=== PATIENT | male | born 2000 | race Caucasian/White ===

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

== ENCOUNTER 2019-06-02 08:40 | Inpatient (IN) | payer MEDICAID, OTHER ==
--- NOTE | 2019-06-02 09:34 | ED ---
General Adult HPI - General Chief complaint: Psychiatric Symptoms Stated complaint: Mental Health Time Seen by Provider: 06/02/19 08:41 Source: patient, police, RN notes reviewed Mode of arrival: ambulatory Limitations: no limitations - History of Present Illness Initial comments: This is a 18-year-old male who presents to the emergency department from prison. Patient has been in prison for about a week and according to staff is getting progressively more bizarre. Patient is not eating patient standing around naked. Patient also thinks that the "niggers" are trying to get after him in the prison and he is afraid that he'll be hurts. Patient also states he is afraid that people are putting stuff in his food he believes that is the staff that works there. Patient also has been standing on his been for 12 hour straight without getting off. Patient also has had outbursts of laughing hysterically won't stop. Patient also gets at times verbally abusive. - Related Data Home Medications Medication Instructions Recorded Confirmed No Known Home Medications 06/02/19 06/02/19 Allergies Allergy/AdvReac Type Severity Reaction Status Date / Time No Known Allergies Allergy Verified 06/02/19 09:16 Review of Systems ROS Statement: Those systems with pertinent positive or pertinent negative responses have been documented in the HPI. ROS Other: All systems not noted in ROS Statement are negative. Past Medical History Past Medical History: No Reported History History of Any Multi-Drug Resistant Organisms: None Reported Past Surgical History: No Surgical Hx Reported Additional Past Surgical History / Comment(s): dog bite Past Psychological History: ADD/ADHD, Anxiety, Depression Smoking Status: Current every day smoker Past Alcohol Use History: Occasional Past Drug Use History: Cocaine, Marijuana General Exam - General Exam Comments Initial Comments: GENERAL: Patient is well-developed and well-nourished. Patient is nontoxic and well- hydrated and is in no acute distress. ENT: Neck is soft and supple. No significant lymphadenopathy is noted. Oropharynx is clear. Moist mucous membranes. Neck has full range of motion without eliciting any pain. EYES: The sclera were anicteric and conjunctiva were pink and moist. Extraocular movements were intact and pupils were equal round and reactive to light. Eyelids were unremarkable. PULMONARY: Unlabored respirations. Good breath sounds bilaterally. No audible rales rhonchi or wheezing was noted. CARDIOVASCULAR: There is a regular rate and rhythm without any murmurs gallops or rubs. ABDOMEN: Soft and nontender with normal bowel sounds. SKIN: Skin is clear with no lesions or rashes and otherwise unremarkable. NEUROLOGIC: Patient is alert and oriented x3. Cranial nerves II through XII are grossly intact. Motor and sensory are also intact. Normal speech, volume and content. Symmetrical smile. MUSCULOSKELETAL: Normal extremities with adequate strength and full range of motion. LYMPHATICS: No significant lymphadenopathy is noted PSYCHIATRIC: Patient is cooperative patient does have some paranoid thoughts about people trying to hurt her more poisoning his food. Patient denies any suicidal homicidal ideations. Limitations: no limitations Course Vital Signs 06/02/19 08:41 Temperature 98.0 F Pulse Rate 80 Respiratory 18 Rate Blood Pressure 118/83 O2 Sat by Pulse 98 Oximetry Medical Decision Making - Lab Data Lab Results 06/02/19 Range/Units 09:43 Urine Opiates Screen Not Detected (NotDetected) Ur Oxycodone Screen Not Detected (NotDetected) Urine Methadone Screen Not Detected (NotDetected) Ur Propoxyphene Screen Not Detected (NotDetected) Ur Barbiturates Screen Not Detected (NotDetected) U Tricyclic Antidepress Not Detected (NotDetected) Ur Phencyclidine Scrn Not Detected (NotDetected) Ur Amphetamines Screen Not Detected (NotDetected) U Methamphetamines Scrn Not Detected (NotDetected) U Benzodiazepines Scrn Not Detected (NotDetected) Urine Cocaine Screen Not Detected (NotDetected) U Marijuana (THC) Screen Detected H (NotDetected) Disposition Clinical Impression: Acute psychosis Disposition: ADMITTED IP TO THIS HOSP Referrals: None,Stated [Primary Care Provider] - 1-2 days Time of Disposition: 11:21
--- NOTE | 2019-06-02 10:02 | CT ---
EXAMINATION TYPE: CT brain wo con DATE OF EXAM: 06/02/2019 COMPARISON: None INDICATION: altered mental status DLP: 1099.4 mGycm, Automated exposure control for dose reduction was used. CONTRAST: None CT of the brain is performed utilizing 3 mm thick sections through the posterior fossa and 3 mm thick sections through the remaining calvarium. Study is performed within 24 hours of arrival to the hosp [facility]. No abnormal hyperdensity is present to suggest an acute intracranial hemorrhage. No mass lesion is evident. No acute infarcts are evident. Ventricles and sulci are appropriate for the patient age. There may be a robert cisterna magna normal variant. Paranasal sinuses and mastoid air cells within the [id number] are clear. IMPRESSIONS: 1. No acute intracranial process.
[2019-06-02 10:09] LABS: Amphetamine Screen,Urine Not Detected (NotDetected); Barbiturate Screen,Urine Not Detected (NotDetected); Benzodiazepines Screen,Urine Not Detected (NotDetected); Cocaine Screen,Urine Not Detected (NotDetected); Methadone Screen, Urine Not Detected (NotDetected); Opiate Screen,Urine Not Detected (NotDetected); Oxycodone Screen, Urine Not Detected (NotDetected); Phencyclidine Screen,Urine Not Detected (NotDetected); Tricyclic Antidepressant,Urine Not Detected (NotDetected); Urn Cannabinoid Scrn Detected (NotDetected)
[2019-06-02] MEDS ORDERED: ACETAMINOPHEN TAB 500 MG TAB PO STA (11:39)
[2019-06-02] MEDS ORDERED: LORazepam 1 MG TAB PO STA (11:39)
[2019-06-02] MEDS ORDERED: ACETAMINOPHEN TAB 325 MG TAB PO PRN (12:09)
[2019-06-02] MEDS ORDERED: MAG HYDROX/AL HYDROX/SIMETH 30 ML CUP PO PRN (12:09)
[2019-06-02] MEDS ORDERED: MAGNESIUM HYDROXIDE 2,400 MG/10 ML CUP PO PRN (12:09)
[2019-06-02] MEDS ORDERED: ZIPRASIDONE 20 MG VIAL IM PRN (12:09)
--- NOTE | 2019-06-02 17:40 | P.MDCNMH ---
History of Present Illness H&P Date: 06/02/19 Chief Complaint: Right hand laceration while incarcerated. This 18-year-old male who was admitted to mental health unit because of his worsening psych condition and medicine was consulted for medical management. Patient stated he is doing fine but did complain of having stomach upset and requesting to see a nurse. Patient also stated that he got injured in his bilateral hands when he was restrained during incarceration. Nurses reported that patient has some laceration and they're applying bacitracin ointment on it. During the interview patient was looking outside the window in a suspicious way. Patient cannot remember why he was incarcerated and why he was sent to the mental health unit. In the emergency room patient has minimal evaluation done CT head was negative for acute bleed and urine to screen was positive for marijuana. When asked patient stated that he was given marijuana and he smoked while he was incarcerated just prior to coming to the hospital. Patient denies headache, dizziness, chest pain, palpitation, nausea, vomiting, diarrhea, fever, chills, cough, sputum production and denies rest of the review system. Review of Systems 12 point review of system was essentially negative except what is mentioned in HPI Past Medical History Past Medical History: No Reported History History of Any Multi-Drug Resistant Organisms: None Reported Past Surgical History: No Surgical Hx Reported Additional Past Surgical History / Comment(s): dog bite Past Psychological History: ADD/ADHD, Anxiety, Depression Smoking Status: Never smoker Past Alcohol Use History: Occasional Past Drug Use History: Cocaine, Marijuana Medications and Allergies Home Medications Medication Instructions Recorded Confirmed Type No Known Home Medications 06/02/19 06/02/19 History Allergies Allergy/AdvReac Type Severity Reaction Status Date / Time No Known Allergies Allergy Verified 06/02/19 09:16 Physical Exam Vitals: Vital Signs Temp Pulse Pulse Resp BP BP Pulse Ox 06/02/19 14:01 96.7 F L 105 H 18 121/78 06/02/19 12:00 97.6 F 90 12 140/80 99 06/02/19 08:41 98.0 F 80 18 118/83 98 Intake and Output 06/02/19 06/02/19 06/02/19 06:59 14:59 22:59 Other: Weight 65.771 kg - Constitutional General appearance: cooperative, no acute distress - EENT Eyes: EOMI, normal appearance ENT: hearing grossly normal, NA/AT - Neck Neck: no lymphadenopathy, normal ROM, no rigidity, no stridor, no thyromegaly - Respiratory Respiratory: bilateral: CTA, negative: rales, rhonchi, wheezing - Cardiovascular Rhythm: regular Heart sounds: normal: S1, S2 Abnormal Heart Sounds: no systolic murmur, no diastolic murmur, no S3 Gallop, no S4 Gallop - Gastrointestinal General gastrointestinal: no distended, normal bowel sounds, no rigid, soft, no tenderness - Integumentary Patient is to laceration one on the right dorsal hand towards the base of the first metacarpal bone and it is about 1.2 cm long linear laceration with subcutaneous fat exposed. There is surrounding area of induration and erythema with some serous fluid discharge. No significant tenderness detected. Patient also had a small superficial laceration on the left dorsal hand around this same area which is towards the base of the first metacarpal bone with surrounding minimum erythema and no induration. - Neurologic Neurologic: CNII-XII intact - Musculoskeletal Musculoskeletal: gait normal, no generalized weakness, strength equal bilaterally, no right sided weakness, no left sided weakness - Psychiatric Psychiatric: A&O x's 3 (Very suspicious and paranoid appearance.) Cranial Nerve Examination - Cranial Nerves Cranial Nerve I- Olfactory: Intact Cranial Nerve II- Optic: Intact Cranial Nerve III- Oculomotor: Intact Cranial Nerve IV- Trochlear: Intact Cranial Nerve V- Trigeminal: Intact Cranial Nerve - Abducens: Intact Cranial Nerve VII- Facial: Intact Cranial Nerve VIII- Auditory: Intact Cranial Nerve IX- Glossopharyngeal: Intact Cranial Nerve X- Vagus: Intact Cranial Nerve XI- Accessory: Intact Cranial Nerve XII- Hypoglossal: Intact Results Labs: Abnormal Lab Results - Last 24 Hours (Table) 06/02/19 Range/Units 09:43 U Marijuana (THC) Screen Detected H (NotDetected) Assessment and Plan (1) Laceration of right hand Current Visit: Yes Status: Acute Priority: Medium Code(s): S61.411A - LACERATION WITHOUT FOREIGN BODY OF RIGHT HAND, INIT ENCNTR SNOMED Code(s): 091241832 (2) Gastritis Current Visit: Yes Status: Acute Priority: Medium Code(s): K29.70 - GASTRITIS, UNSPECIFIED, WITHOUT BLEEDING SNOMED Code(s): 4009848 (3) Polysubstance abuse Current Visit: Yes Status: Acute Priority: Medium Code(s): F19.10 - OTHER PSYCHOACTIVE SUBSTANCE ABUSE, UNCOMPLICATED SNOMED Code(s): 715581301 (4) Acute psychosis Current Visit: Yes Status: Acute Priority: High Code(s): F23 - BRIEF PSYCHOTIC DISORDER SNOMED Code(s): 39060419 Plan: It was recommended to initiate Keflex 500 mg by mouth 3 times a day daily for total of 10 days and local care of the wound bacitracin ointment twice a day. Although the wound is little deep but no tendons exposed and it is small in size sutures are not indicated. Local care along with oral antibiotics will be sufficient. For the left hand small laceration local care with local antibiotics is recommended. Patient was counseled regarding quitting cocaine and marijuana abuse and it was not well taken by him. For psych issues your care. Thanks for the consult, please reconsult if any further medical needs arise while he is in the mental health unit. Time with Patient: Less than 30
[2019-06-02] MEDS: PANTOPRAZOLE 40 MG TABLET PO SCH (17:45)
[2019-06-02] MEDS: CEPHALEXIN 500 MG CAP PO SCH ×2 (17:45→20:25)
[2019-06-03] MEDS: PANTOPRAZOLE 40 MG TABLET PO SCH (08:16)
[2019-06-03] MEDS: CEPHALEXIN 500 MG CAP PO SCH ×3 (08:16→20:07)
--- NOTE | 2019-06-03 09:15 | P.HP ---
Psychiatric H&P - . H&P Date: 06/03/19 History & Physical: Allergies Allergy/AdvReac Type Severity Reaction Status Date / Time No Known Allergies Allergy Verified 06/02/19 09:16 Vital Signs Temp 96.7 F L 06/02/19 14:01 Pulse 105 H 06/02/19 14:01 Resp 18 06/02/19 14:01 BP 121/78 06/02/19 14:01 Pulse Ox 99 06/02/19 12:00 Intake & Output 06/02/19 06/03/19 06/03/19 18:59 06:59 18:59 Weight 65.771 kg Laboratory Last Values Urine Opiates Screen Not Detected (NotDetected) 06/02/19 09:43 Ur Oxycodone Screen Not Detected (NotDetected) 06/02/19 09:43 Urine Methadone Screen Not Detected (NotDetected) 06/02/19 09:43 Ur Propoxyphene Screen Not Detected (NotDetected) 06/02/19 09:43 Ur Barbiturates Screen Not Detected (NotDetected) 06/02/19 09:43 U Tricyclic Antidepress Not Detected (NotDetected) 06/02/19 09:43 Ur Phencyclidine Scrn Not Detected (NotDetected) 06/02/19 09:43 Ur Amphetamines Screen Not Detected (NotDetected) 06/02/19 09:43 U Methamphetamines Scrn Not Detected (NotDetected) 06/02/19 09:43 U Benzodiazepines Scrn Not Detected (NotDetected) 06/02/19 09:43 Urine Cocaine Screen Not Detected (NotDetected) 06/02/19 09:43 U Marijuana (THC) Screen Detected (NotDetected) H 06/02/19 09:43 06/03/19 09:04 IDENTIFYING DATA: Patient is a 18-year-old male who lives in [facility] here on alone in an apartment is single and presents from the nursing home for a psychiatric evaluation. HPI: Patient presented to the hospital from the nursing home on petition indicating the patient has been paranoid, delusional and acting bizarre. Patient was escorted onto the unit by police in [facility] and appeared to be responding to internal stimuli on admission. Patient was directable yet was suspicious of scenario writer and agreeable to speak to scenario writer in an open common area where patient states "so I can see everything ". Patient stared blankly and bizarrely at scenario writer at times during the interview and was frequently looking over his shoulder and appeared to be responding to internal stimuli actively. Patient states that she is in the psych unit because he is feeling "anxious" and that the police brought him here because the nursing home was "hectic". Patient also states that "it's about to get hectic in this hospital". Patient was loud at times and irritable and states that his stomach is "twisted in a knot". Patient has poor judgment and poor insight. Patient admitted to not trusting other people in the unit along with staff however denies any auditory or visual hallucinations at this time. Patient admits to smoking marijuana "a lot" and states that he's been using concentrates however denies using any synthetics. Patient denies any other substance use including cocaine and heroin nicotine and alcohol. At this time patient denies any thoughts of suicidal or homicidal ideations intent or plan. Patient denies any thought insertion or thought broadcasting. Patient denies any depression and any flight of ideas racing thoughts and increased in goal directed behavior. PAST PSYCHIATRIC HISTORY: Admits to being admitted to [facility] however does not give details or date. Patient claims that he's been on antidepressants in the past however does not know their name. Patient denies seeing a psychiatrist in the past. Patient denies any previous history of suicidal attempts. PMH: Denies ALLERGIES: NKDA CHEMICAL DEPENDENCY HISTORY: Cannabis and cannabis concentrates, unknown quantity. Patient denies any other recreational drug use including alcohol and cigarettes. FAMILY PSYCHIATRIC/SUBSTANCE USE HISTORY: Denies SOCIAL HISTORY: Patient admits to being raised in [place] and currently lives in [place] and alone in an apartment, single, no kids. Patient has been at the nursing home for several weeks now and has been charged for breaking a window at his father's house to get his belongings. MENTAL STATUS EXAM: General Appearance: Patient appears to be stated age, poor hygiene and poor grooming wearing hospital gown. Patient appears to be responding to internal stimuli and checking over his shoulder. Behavior: Patient appears anxious and checking over his shoulders. Speech: Patient's speech is fluent monotone Mood/Affect: Patient reports their mood is fine, affect is incongruent and shallow Suicidality/Homicidality: Patient denies having any suicidal or homicidal ideation intent or plan. Perceptions: Patient denies any auditory or visual hallucinations. Admits to paranoia Though content/process: Bizarre, illogical at times. Evidence of paranoia. Memory and concentration: AOX3, grossly intact for the purposes of this session. Can spell "WORLD" backwards Judgment and insight: Poor STRENGTHS/WEAKNESSES: Resilient, good support system INTELLECT: Below average IMPRESSIONS: Psychosis, unspecified. PLAN: -Patient is admitted under voluntary status to MHU for stabilization of psychiatric symptoms and safety. Patient signed adult voluntary form and was placed in patient's chart. -Will start patient on Risperdal 1 mg twice a day for psychosis. -Haldol and Ativan PRN for agitation/aggression -Patient was counselled on substance abuse and desired to cut back on use. At this time patient has poor insight and will need to be monitored and revisit at a later time. -Patient was informed of the risks, benefits and side effects of the medication and patient verbally consented to taking the medications. Patient signed med consent form and was placed in chart. -NRT was offered and patient declined as patient does not smoke. -SW on board for discharge planning. Patient will be discharged back to nursing home upon being psychiatrically stabilized.
[2019-06-03] MEDS: risperiDONE ODT 1 MG TAB PO SCH ×2 (09:20→20:07)
[2019-06-03] MEDS: LORazepam 1 MG TAB PO PRN (20:07)
[2019-06-04] MEDS: PANTOPRAZOLE 40 MG TABLET PO SCH (08:45)
[2019-06-04] MEDS: CEPHALEXIN 500 MG CAP PO SCH ×3 (08:45→23:57)
[2019-06-04] MEDS: risperiDONE ODT 1 MG TAB PO SCH ×2 (08:45→21:33)
--- NOTE | 2019-06-04 09:56 | P.PN ---
Progress Note - Text Progress Note Date: 06/04/19 Interval History: Patient was seen wandering the hallways this morning was agreeable to radio news writer in the room. Patient was more directable today and mildly less bizarre than yesterday. Patient did not appear to be responding to internal stimuli however did drift off from time to time during the interview. Patient claimed that she got kicked out of group yesterday for being defiant and spitting and I can. Discussed with patient the rules of the groups and the appropriateness of his behaviors, patient continues to have poor insight and judgment. Patient states that he is sleeping better approximately 6-8 hours last night. He states that he does not feel paranoid at this time and does not endorse any delusions. He states that the medications did help "my stomach" however continues to state that he does not need medications but is willing to keep on taking them. At this time patient denies any suicidal or homical ideations, intent or plan. Patient denies any auditory, visual hallucinations. Patient denies any side effects from the medications and has been compliant with meds. Mental Status Exam: General Appearance: [Patient appears to be stated age is alert, directable and somewhat cooperative. Patient was defiant at times however was less bizarre. Patient is improving mildly in terms of grooming and hygiene. Behavior: [Patient is calmly seated without any agitated behavior.] Speech: Patient's speech is fluent and nonpressured. Mood/Affect: Patient reports their mood is improving, affect is congruent and constricted. Suicidality/Homicidality: Patient denies having any suicidal or homicidal ideation intent or plan. Perceptions: Patient denies any auditory or visual hallucinations. Though content/process: [There is no evidence of any delusional thought content, patient is still illogical and bizarre at times. Memory and concentration: AOX3, grossly intact for the purposes of this session Judgment and insight: Poor Assessment Psychosis, unspecified Cannabis use disorder Plan: -Patient continues to meet criteria for inpatient psychiatric admission for symptom stabilization and safety. Patient signed for medications and for voluntary admission, signed and placed in chart. -Medications: We'll continue Risperdal 1 mg twice a day for psychosis. May need an increase in 1-2 days. -Lesion noticed tachycardia, likely reactive from commencement of antipsychotics. Other vital signs stable and will continue to monitor. -When necessary Haldol and Ativan for agitation/aggression. -SW on board for discharge planning. Patient was a transfer from retirement and will need to be transferred back when discharged and psychiatrically stable.
[2019-06-04] MEDS: HALOPERIDOL LACTATE 5 MG/ML 1 ML VIAL IM PRN (18:54)
[2019-06-05] MEDS: PANTOPRAZOLE 40 MG TABLET PO SCH (07:43)
[2019-06-05] MEDS: risperiDONE ODT 1 MG TAB PO SCH ×2 (08:56→21:33)
[2019-06-05] MEDS: CEPHALEXIN 500 MG CAP PO SCH ×3 (08:56→21:33)
--- NOTE | 2019-06-05 09:25 | P.PN ---
Progress Note - Text Progress Note Date: 06/05/19 Interval History: Patient was seen this morning in the office. Patient was directable and agree able to speak with her at her. Patient appears to be slightly more appropriate this morning. Patient is not actively responding to internal stimuli however patient continues to give very bizarre looks to ad writer. Patient cleansed out the window several times and did not know or give a reason why. Patient states that he is getting along better with other people. He states that his impulse control is improving. Patient was preoccupied with discharge. He states that he is taking his medications and denies any side effects. Patient states that the dose right now is working for him and his anxiety. He states that his mood is okay. At this time patient denies any suicidal or homical ideations, intent or plan. Patient denies any auditory, visual hallucinations and denies any paranoia or delusions. Mental Status Exam: General Appearance: [Patient appears to be stated age is alert, directable and somewhat cooperative. Patient was defiant at times however was less bizarre. Patient is improving mildly in terms of grooming and hygiene. Behavior: [Patient is calmly seated without any agitated behavior.] Speech: Patient's speech is fluent and nonpressured. Mood/Affect: Patient reports their mood is improving, affect is congruent and constricted. Suicidality/Homicidality: Patient denies having any suicidal or homicidal ideation intent or plan. Perceptions: Patient denies any auditory or visual hallucinations. Though content/process: [There is no evidence of any delusional thought content, patient is still illogical and bizarre at times. Memory and concentration: AOX3, grossly intact for the purposes of this session Judgment and insight: Poor, improving Assessment Psychosis, unspecified Cannabis use disorder Plan: -Patient continues to meet criteria for inpatient psychiatric admission for symptom stabilization and safety. Patient signed for medications and for voluntary admission, signed and placed in chart. -Medications: We'll continue Risperdal 1 mg twice a day for psychosis. May need an increase depending on how things go over the weekend. -Tachycardia, likely reactive from commencement of antipsychotics. Other vital signs stable and will continue to monitor. -When necessary Haldol and Ativan for agitation/aggression. -SW on board for discharge planning. [facility] and will need to be transferred back when discharged and psychiatrically stable.
[2019-06-05] MEDS: LORazepam 1 MG TAB PO PRN (21:46)
[2019-06-06] MEDS: HALOPERIDOL LACTATE 5 MG/ML 1 ML VIAL IM PRN (07:20)
[2019-06-06] MEDS: LORazepam 1 MG TAB PO PRN (07:21)
[2019-06-06] MEDS: PANTOPRAZOLE 40 MG TABLET PO SCH (11:16)
[2019-06-06] MEDS: risperiDONE ODT 1 MG TAB PO SCH ×2 (11:16→22:15)
[2019-06-06] MEDS: CEPHALEXIN 500 MG CAP PO SCH ×3 (11:17→22:16)
--- NOTE | 2019-06-06 14:24 | P.PN ---
Progress Note - Text Progress Note Date: 06/06/19 Interval history: Patient is seen in cross coverage today. He does not voice any adverse psychotropic medication side effects. He says his sleep and appetite are stable. He does state that he is feeling better compared to admission. He says he was bothered by an incident earlier on the unit involving some peers but is dealing with it okay. Mental status exam: He is alert and cooperative with the interview. His speech is fluent, not rapid or pressured. His thought processes are organized. He does not verbalize any hallucinations or delusional thoughts. He has not verbalize any thoughts of harm to self or others. He does not show any agitation. Plan: Patient be maintained on current psychotropic medication regimen. Continue to monitor for any medication side effects and monitor his ongoing response to treatment.
[2019-06-07] MEDS: risperiDONE ODT 1 MG TAB PO SCH ×2 (08:20→21:26)
[2019-06-07] MEDS: PANTOPRAZOLE 40 MG TABLET PO SCH (08:21)
[2019-06-07] MEDS: CEPHALEXIN 500 MG CAP PO SCH ×3 (08:21→21:27)
--- NOTE | 2019-06-07 10:33 | P.PN ---
Progress Note - Text Progress Note Date: 06/07/19 Interval history: Patient is [place] in [facility] [place]. He reports he slept at least 7 hours last night. Says he is eating well. He does not verbalize any adverse psychotropic medication side effects. He is attending some groups. Mental status exam: He is alert and cooperative with the interview he has a tissue and one of his nostrils. He describes his mood is doing pretty good. He denies any hallucinations and denies any thoughts of harm to self or others. He does not verbalize any delusional thoughts. He does not show any agitation. Plan: Patient will be maintained on current psychotropic medication regimen. We'll continue to monitor for any medication side effects and monitor his ongoing response to treatment.
[2019-06-08 06:18] VITALS: RESP 18
[2019-06-08] MEDS: PANTOPRAZOLE 40 MG TABLET PO SCH (09:20)
[2019-06-08] MEDS: risperiDONE ODT 1 MG TAB PO SCH ×2 (09:20→21:48)
[2019-06-08] MEDS: CEPHALEXIN 500 MG CAP PO SCH ×3 (09:20→21:49)
--- NOTE | 2019-06-08 10:06 | P.PN ---
Progress Note - Text Progress Note Date: 06/08/19 Interval History: Patient was seen in the hallways and was somewhat directable agreeable to speak to commercial lines underwriter in the office. Patient appears to be somewhat as are and stares blankly at commercial lines underwriter at times. Patient was calm and alert during the interview and stated that his weekend was "all right". Patient denies any complaints except for "seeing some ghosts" in his room. Patient states that he feels worried about this and felt anxious over the weekend. Patient claims that he is trying to go to more groups and participate. He claims that the medication is helping him think clearer. At this time he admits to some anxiety however denies any depression. He states that he is sleeping throughout the night. At this time patient denies any suicidal or homical ideations, intent or plan. Patient denies any auditory, visual hallucinations. Patient denies any side effects from the medications and has been compliant with meds. Mental Status Exam: General Appearance: Patient appears to be stated age is alert, directable and somewhat cooperative. Patient was bizarre at times however was less bizarre. Patient is improving mildly in terms of grooming and hygiene. Behavior: Patient is calmly seated without any agitated behavior. Speech: Patient's speech is fluent and nonpressured. Mood/Affect: Patient reports their mood is improving, affect is congruent and constricted. Suicidality/Homicidality: Patient denies having any suicidal or homicidal ideation intent or plan. Perceptions: Patient denies any auditory or visual hallucinations. Though content/process: There is no evidence of any delusional thought content, patient is still bizarre at times. Memory and concentration: AOX3, grossly intact for the purposes of this session Judgment and insight: Poor, improving Assessment Psychosis, unspecified Cannabis use disorder Plan: -Patient continues to meet criteria for inpatient psychiatric admission for symptom stabilization and safety. Patient signed for medications and for voluntary admission, signed and placed in chart. -Medications: We'll increase Risperdal to 1 mg in the morning +1.5 mg at night for psychosis. -Tachycardia, likely reactive from commencement of antipsychotics. Other vital signs stable and will continue to monitor. -When necessary Haldol and Ativan for agitation/aggression. -SW on board for discharge planning. [facility] and will need to be transferred back when discharged and psychiatrically stable. Likely discharge early this week.
[2019-06-08] MEDS: HALOPERIDOL LACTATE 5 MG/ML 1 ML VIAL IM PRN (19:55)
[2019-06-09 06:41] VITALS: TEMP 97.8
[2019-06-09] MEDS: PANTOPRAZOLE 40 MG TABLET PO SCH (09:15)
[2019-06-09] MEDS: CEPHALEXIN 500 MG CAP PO SCH ×2 (09:15→16:07)
[2019-06-09] MEDS: risperiDONE ODT 1 MG TAB PO SCH ×2 (09:15→21:13)
--- NOTE | 2019-06-09 11:47 | P.PN ---
Progress Note - Text Progress Note Date: 06/09/19 Interval History: Patient was seen today in the hallways and was more directable today and agree able to seek to specifications writer. Patient states that he is trying to go to more groups and participate. He states that he has not been kicked out of groups for a while now. Patient claims that he is taking his medications every day and denies any side effects. Patient is less bizarre today, less staring inappropriately. Patient is not actively responding to internal stimuli. Patient claims he is getting adjusted to the increase in the medication however feels that it is slowly helping his process. Patient claims he slept to the night claims that the paranoia has been improving mildly. He is eating okay and has fair energy. At this time patient denies any suicidal or homical ideations, intent or plan. Patient denies any auditory, visual hallucinations and denies any paranoia or delusions. Mental Status Exam: General Appearance: Patient appears to be stated age is alert, directable and somewhat cooperative. Patient was less bizarre today and Patient is improving mildly in terms of grooming and hygiene. Behavior: Patient is calmly seated without any agitated behavior. Speech: Patient's speech is fluent and nonpressured. Mood/Affect: Patient reports their mood is improving, affect is congruent and constricted. Suicidality/Homicidality: Patient denies having any suicidal or homicidal ideation intent or plan. Perceptions: Patient denies any auditory or visual hallucinations. Though content/process: There is no evidence of any delusional thought content, patient is still bizarre at times. Memory and concentration: AOX3, grossly intact for the purposes of this session Judgment and insight: Poor, improving Assessment Psychosis, unspecified Cannabis use disorder Plan: -Patient continues to meet criteria for inpatient psychiatric admission for symptom stabilization and safety. Patient signed for medications and for voluntary admission, signed and placed in chart. -Medications: Continue with Risperdal to 1 mg in the morning +1.5 mg at night for psychosis. -Tachycardia, likely reactive from commencement of antipsychotics. Other vital signs stable and will continue to monitor. -When necessary Haldol for agitation/aggression. Discontinued Ativan as patient was cheeking this. -SW on board for discharge planning. Patient was a transfer from skilled nursing and will need to be transferred back when discharged and psychiatrically stable. Likely discharge tomorrow back to skilled nursing, social service agency director to arrange for pickup tomorrow.
[2019-06-10 06:45] VITALS: BP 139/75; PULSE 101
[2019-06-10] MEDS: PANTOPRAZOLE 40 MG TABLET PO SCH (08:58)
[2019-06-10] MEDS: risperiDONE ODT 1 MG TAB PO SCH (08:58)
--- NOTE | 2019-06-10 09:45 | P.DS ---
Providers Date of admission: 06/02/19 11:48 Expected date of discharge: 06/10/19 Attending physician: Lloyd Rosario MD Consults: 06/02/19 12:09 Consult Physician Routine Consulting Provider: Awilda Nowak Consult Reason/Comments: history and physical Do you want consulting provider notified?: Yes Primary care physician: Stated None - Discharge Diagnosis(es) (1) Psychosis Current Visit: Yes Status: Acute Priority: High (2) Cannabis abuse Current Visit: Yes Status: Acute Priority: High Hospital Course: Summary of admission note: Patient is a 18-year-old male [facility] [place] [facility] [place] apartment is single and [facility]. [facility] on petition indicating the p atient has been paranoid, delusional and acting bizarre. Patient was escorted onto the unit by police in [facility] and appeared to be responding to internal stimuli on admission. Patient was directable yet was suspicious of teletypewriter installer and agreeable to speak to teletypewriter installer in an open common area where patient states "so I can see everything ". Patient stared blankly and bizarrely at teletypewriter installer at times during the interview and was frequently looking over his shoulder and appeared to be responding to internal stimuli actively. Patient states that she is in the psych unit because he is feeling "anxious" and that the police brought him here because the [facility] was "hectic". Patient also states that "it's about to get hectic in this hospital". Patient was loud at times and irritable and states that his stomach is "twisted in a knot". Patient has poor judgment and poor insight. Patient admitted to not trusting other people in the unit along with staff however denies any auditory or visual hallucinations at this time. Patient admits to smoking marijuana "a lot" and states that he's been using concentrates however denies using any synthetics. Patient denies any other substance use including cocaine and heroin nicotine and alcohol. At this time patient denies any thoughts of suicidal or homicidal ideations intent or plan. Patient denies any thought insertion or thought broadcasting. Patient denies any depression and any flight of ideas racing thoughts and increased in goal directed behavior. Hospital course: Upon admission to the unit patient was initially actively responding to internal stimuli, appeared to be paranoid and bizarre. Patient was initially hesitant to engage with treatment protocol and milieu however patient did sign voluntary and consented to medications and treatment. Patient followed unit protocol however did require when necessary for agitation and disruptive behavior on the unit and often times was antagonizing to other patients and staff which did not appear to be related to his underlying psychosis. Patient was compliant with his medications and denied any side effects throughout his hospital course. Patient was started on Risperdal which was increased to 1 mg in the morning +1.5 mg at night for psychosis however patient claims that the 1.5 mg at night was causing him to have nightmares and wanted to return back to 1 mg twice a day. Patient spoke of his stressors and engaged in therapy both group and individual. At times patient was disruptive in group and was asked to leave however did apologize for his behavior. Patient's UDS was positive for THC on admission. Patient was also seen by medical team for history and physical exam. Throughout the course of the hospitalization patient gradually improved with regards to mood, sleep, psychotic symptoms and became future oriented and improved judgment and insight. On the day of discharge patient denied any suicidal or homicidal ideations intent or plan denied any auditory or visual hallucinations. Patient denied any paranoia and did not endorse any delusions. Patient does have a significant history of substance abuse and was counseled on abstaining from all substances including alcohol and marijuana. Patient was also counseled on the medications and need for regular compliance and was encouraged to follow-up with their outpatient appointment for mental health and also for primary care. Mental status exam: General Appearance: Patient appears to be stated age is alert, directable and cooperative. Patient is in no acute distress and has fair hygiene and grooming Behavior: Patient is calmly seated without any agitated behavior. Speech: Patient's speech is fluent and nonpressured. Mood/Affect: Patient reports their mood is "good", affect is congruent and euthymic. Suicidality/Homicidality: Patient denies having any suicidal or homicidal ideation intent or plan. Perceptions: Patient denies any auditory or visual hallucinations. Though content/process: There is no evidence of any delusional thought content and thought process is linear and goal-directed. Memory and concentration: AOX3, grossly intact for the purposes of this session. Can spell "WORLD" backwards correctly. Judgment and insight: fair, improving Impression: Acute psychosis Cannabis use disorder Plan: -Continue with discharge today as patient has improved and stabilized psychiatrically and no longer remains an imminent threat to himself and/or others. -Continue medications: Risperidone 1 mg twice a day for psychosis. Patient was informed of the risks, benefits and side effects of this medication and verbally understood and agreed. -Patient was counseled on the need for medication compliance and appropriate follow-up at mental health and also primary care for medical issues. Patient verbalized understanding and agreed. -Social work to give patient resources for substance abuse treatment. Patient counseled on abstaining from recreational drugs and marijuana and alcohol and it s effects on his physical and mental health. -Patient was instructed to return to the hospital or seek immediate medical care if their psychiatric or medical systems do worsen or reoccur. Allergies Allergy/AdvReac Type Severity Reaction Status Date / Time No Known Allergies Allergy Verified 06/02/19 09:16 Laboratory Results Urine Opiates Screen Not Detected (NotDetected) 06/02/19 09:43 Ur Oxycodone Screen Not Detected (NotDetected) 06/02/19 09:43 Urine Methadone Screen Not Detected (NotDetected) 06/02/19 09:43 Ur Propoxyphene Screen Not Detected (NotDetected) 06/02/19 09:43 Ur Barbiturates Screen Not Detected (NotDetected) 06/02/19 09:43 U Tricyclic Antidepress Not Detected (NotDetected) 06/02/19 09:43 Ur Phencyclidine Scrn Not Detected (NotDetected) 06/02/19 09:43 Ur Amphetamines Screen Not Detected (NotDetected) 06/02/19 09:43 U Methamphetamines Scrn Not Detected (NotDetected) 06/02/19 09:43 U Benzodiazepines Scrn Not Detected (NotDetected) 06/02/19 09:43 Urine Cocaine Screen Not Detected (NotDetected) 06/02/19 09:43 U Marijuana (THC) Screen Detected (NotDetected) H 06/02/19 09:43 Vital Signs Temp 97.8 F 06/10/19 06:12 Pulse 101 H 06/10/19 06:12 Resp 18 06/10/19 06:12 BP 139/75 06/10/19 06:12 Pulse Ox 99 06/02/19 12:00 Patient Condition at Discharge: Stable Plan - Discharge Summary New Discharge Prescriptions: Asad Pantoprazole [Protonix] 40 mg PO AC-BRKFST #14 tablet. risperiDONE 1 mg PO BID #28 tablet Discharge Medication List Pantoprazole [Protonix] 40 mg PO AC-BRKFST #14 tablet. 06/10/19 [Rx] risperiDONE 1 mg PO BID #28 tablet 06/10/19 [Rx] Follow up Appointment(s)/Referral(s): None,Stated [Primary Care Provider] - 1-2 days
== END 2019-06-10 13:10 | DRG 885 ==
LOC: EC 08:40 → 3MHU 11:48
PROVIDERS: ADMIT Psychiatry & Neurology Psychiatry; ATTEND Psychiatry & Neurology Psychiatry
DX: F23 Brief psychotic disorder (principal); F17.200 Nicotine dependence, unspecified, uncomplicated; F12.10 Cannabis abuse, uncomplicated; K29.70 Gastritis, unspecified, without bleeding; S61.411A Laceration without foreign body of right hand, initial encounter; F41.9 Anxiety disorder, unspecified; R00.0 Tachycardia, unspecified; F90.9 Attention-deficit hyperactivity disorder, unspecified type; T43.505A Adverse effect of unspecified antipsychotics and neuroleptics, initial encounter; Z79.899 Other long term (current) drug therapy
CPT/HCPCS: 70450; 80306; 82075; 99285

== ENCOUNTER 2019-11-27 09:11 | Inpatient (IN) | payer MEDICAID, OTHER ==
--- NOTE | 2019-11-27 09:43 | ED ---
General Adult HPI - General Chief complaint: Psychiatric Symptoms Stated complaint: psych eval Time Seen by Provider: 11/27/19 09:25 Source: patient, family, RN notes reviewed Mode of arrival: ambulatory Limitations: no limitations - History of Present Illness Initial comments: Patient is a pleasant 19-year-old male presenting to the emergency department with concerns for paranoia. Patient was admitted several months ago however his medications were not continued. Mother is concerned that patient has been paranoid and worried that people are poisoning him for watching him. Patient has not ate or slept in the past several days. Patient denies feeling paranoid however admits to not eating well recently. Patient denies hallucinations. No alcohol or street drugs however patient states he did smoke some marijuana around New Year's. No new physical complaints. Patient denies suicidal and homicidal thoughts. - Related Data Previous Rx's Medication Instructions Recorded Pantoprazole [Protonix] 40 mg PO AC-BRKFST #14 tablet. 06/10/19 risperiDONE 1 mg PO BID #28 tablet 06/10/19 Allergies Allergy/AdvReac Type Severity Reaction Status Date / Time No Known Allergies Allergy Verified 06/02/19 09:16 Review of Systems ROS Statement: Those systems with pertinent positive or pertinent negative responses have been documented in the HPI. ROS Other: All systems not noted in ROS Statement are negative. Constitutional: Denies: fever Eyes: Denies: eye pain ENT: Denies: ear pain Respiratory: Denies: cough, dyspnea Cardiovascular: Denies: chest pain Endocrine: Denies: fatigue Gastrointestinal: Denies: abdominal pain Genitourinary: Denies: dysuria Musculoskeletal: Denies: back pain Skin: Denies: rash Neurological: Denies: weakness Psychiatric: Reports: as per HPI Past Medical History Past Medical History: No Reported History History of Any Multi-Drug Resistant Organisms: None Reported Past Surgical History: No Surgical Hx Reported Additional Past Surgical History / Comment(s): dog bite Past Psychological History: ADD/ADHD, Anxiety, Bipolar, Depression, Schizophrenia Smoking Status: Never smoker Past Alcohol Use History: Occasional Past Drug Use History: Cocaine, Marijuana General Exam Limitations: no limitations General appearance: alert, in no apparent distress Head exam: Present: normocephalic Eye exam: Present: normal appearance Neck exam: Present: normal inspection Respiratory exam: Present: normal lung sounds bilaterally Cardiovascular Exam: Present: regular rate, normal rhythm GI/Abdominal exam: Present: soft. Absent: tenderness Extremities exam: Present: other (Subacute healing peraza bilateral dorsal hand) Neurological exam: Present: alert Psychiatric exam: Present: flat affect Skin exam: Present: normal color Course Vital Signs 11/27/19 09:16 Temperature 98.0 F Pulse Rate 113 H Respiratory 17 Rate Blood Pressure 150/87 O2 Sat by Pulse 98 Oximetry Medical Decision Making - Medical Decision Making Patient seen by mental health services with plans for admission. Positive clinical certificate completed. Disposition Clinical Impression: Acute psychosis Disposition: TRANSFER TO PSYCH HOSP/UNIT Is patient prescribed a controlled substance at d/c from ED?: No Referrals: None,Stated [Primary Care Provider] - 1-2 days Decision Time: 13:13
[2019-11-27] MEDS ORDERED: ACETAMINOPHEN TAB 325 MG TAB PO PRN (13:51)
[2019-11-27] MEDS ORDERED: MAG HYDROX/AL HYDROX/SIMETH 30 ML CUP PO PRN (13:51)
[2019-11-27] MEDS ORDERED: MAGNESIUM HYDROXIDE 2,400 MG/10 ML CUP PO PRN (13:51)
[2019-11-27] MEDS ORDERED: ZIPRASIDONE 20 MG VIAL IM PRN (13:51)
[2019-11-27] MEDS ORDERED: LORazepam 1 MG TAB PO PRN (13:51)
[2019-11-27] MEDS ORDERED: traZODone HCL 50 MG TAB PO PRN (13:58)
--- NOTE | 2019-11-27 18:11 | P.MDCNMH ---
History of Present Illness H&P Date: 11/27/19 Chief Complaint: Medical management 19-year-old male with PMH of ADHD, anxiety, bipolar depression presents the ED for paranoia. He has been admitted to mental health unit. [facility] physicians has been consulted for medical management of this patient. Patient was seen and examined. Patient has no complaints. He denies any headache, lower extremity edema, nausea or vomiting, fever or chills, cough, chest pain, shortness of breath, palpitations, changes in urination or bowel habits. No changes in appetite or weight. Patient denies any dizziness, numbness/weakness/tingling of extremities. Review of Systems Pertinent positives and negatives as discussed in HPI, a complete review of systems was performed and all other systems are negative. Past Medical History Past Medical History: No Reported History History of Any Multi-Drug Resistant Organisms: None Reported Past Surgical History: No Surgical Hx Reported Additional Past Surgical History / Comment(s): dog bite, plastic surgery to nose Past Anesthesia/Blood Transfusion Reactions: No Reported Reaction Past Psychological History: ADD/ADHD, Anxiety, Bipolar, Depression, Schizophrenia Smoking Status: Current some day smoker Past Alcohol Use History: Abuse, Occasional Additional Past Alcohol Use History / Comment(s): Pt. states when he drinks it's usually a 12 pk of beer occasionally. Past Drug Use History: Cocaine, Marijuana - Past Family History Mother Family Medical History: No Reported History Father Family Medical History: No Reported History Medications and Allergies Home Medications Medication Instructions Recorded Confirmed Type No Known Home Medications 11/27/19 11/27/19 History Allergies Allergy/AdvReac Type Severity Reaction Status Date / Time No Known Allergies Allergy Verified 11/27/19 15:43 Physical Exam Vitals: Vital Signs Temp Pulse Pulse Resp BP Pulse Ox 11/27/19 15:08 98.1 F 105 H 20 98 11/27/19 09:16 98.0 F 113 H 17 150/87 98 Intake and Output 11/27/19 11/27/19 11/27/19 06:59 14:59 22:59 Other: Weight 68.583 kg 65.771 kg General: [non toxic], [no distress], [appears at stated age] Derm: [warm], [dry], [acne] Head: [atraumatic], [normocephalic], [symmetric] Eyes: [EOMI], [no lid lag], [anicteric sclera] Mouth: [no lip lesion], [mucus membranes moist] Cardiovascular: [S1S2 reg], [tachycardia], [positive DP pulse bilateral], Lungs: [CTA bilateral], [no rhonchi, no rales] , [no accessory muscle use] Abdominal: [soft], [ nontender to palpation], [no guarding], [no appreciable organomegaly] Ext: [no gross muscle atrophy], [no edema], [no contractures] Neuro: [no focal neuro deficits] Psych: [Alert], [oriented], [appropriate affect] Cranial Nerve Examination - Cranial Nerves Cranial Nerve II- Optic: Intact Cranial Nerve III- Oculomotor: Intact Cranial Nerve IV- Trochlear: Intact Cranial Nerve V- Trigeminal: Intact Cranial Nerve - Abducens: Intact Cranial Nerve VII- Facial: Intact Cranial Nerve VIII- Auditory: Intact Cranial Nerve IX- Glossopharyngeal: Intact Cranial Nerve X- Vagus: Intact Cranial Nerve XI- Accessory: Intact Cranial Nerve XII- Hypoglossal: Intact Assessment and Plan Assessment: Tachycardia Cigarette smoker Marijuana use Paranoia Heart rate in the low 100s. Likely related to anxiety. Plans: Follow EKG. Plans: Offer nicotine patch. Plans: Advised to quit. Plans: Management as per psychiatry.
[2019-11-27] MEDS ORDERED: risperiDONE 1 MG TAB PO SCH (21:00)
[2019-11-28 07:24] LABS: Basophils % (A) 1 %; Eosinophils % (A) 1 %; HCT 49.7 % (39.0-53.0); HGB 16.8 gm/dL (13.0-17.5); Lymphocytes # (A) 1.8 k/uL (1.0-4.8); Lymphocytes % (A) 27 %; MCH 29.8 pg (25.0-35.0); MCHC 33.8 g/dL (31.0-37.0); MCV 88.2 fL (80.0-100.0); Mean Platelet Volume 7.3; Monocytes # (A) 0.5 k/uL (0-1.0); Monocytes % (A) 7 %; Neutrophils # (A) 3.9 k/uL (1.3-7.7); Neutrophils % (A) 61 %; Platelet Count 247 k/uL (150-450); RBC 5.64 m/uL (4.30-5.90); RDW 12.7 % (11.5-15.5); WBC 6.5 k/uL (4.0-11.0)
[2019-11-28 07:40] LABS: ALT 18 U/L (4-49); AST 31 U/L (17-59); African American GFR (CKD) >90 (>60 ml/min/1.73 sqM); Albumin 5.1 g/dL (3.5-5.0); Alkaline Phosphatase 63 U/L (38-126); Anion Gap 13 mmol/L; Blood Urea Nitrogen 14 mg/dL (9-20); Carbon Dioxide 23 mmol/L (22-30); Chloride 104 mmol/L (98-107); Cholesterol 250 mg/dL (<200); Glucose 80 mg/dL (74-99); HDL Cholesterol 39 mg/dL (40-60); LDL Cholesterol,Calculated 196 mg/dL (0-99); Non-African American GFR(CKD) >90 (>60 ml/min/1.73 sqM); Potassium 4.3 mmol/L (3.5-5.1); Sodium 140 mmol/L (137-145); Total Bilirubin 3.4 mg/dL (0.2-1.3); Total Protein 8.3 g/dL (6.3-8.2); Triglycerides 76 mg/dL (<150)
[2019-11-28] MEDS: hydrOXYzine PAMOATE 25 MG CAP PO PRN (13:47)
--- NOTE | 2019-11-28 13:54 | P.HP ---
Psychiatric H&P - . H&P Date: 11/28/19 History & Physical: IDENTIFYING Data: Colt Montes is a 19-year-old single male who currently lives with his stepfather, unemployed, has psychiatric history of psychotic disorder, and medical history of GERD. The patient has been admitted to our inpatient psychiatric services after been transferred from [facility] ED. Patient was initially brought in to ED accompanied by his mother who petitioned him because of bizarre and paranoid behavior. The patient has been admitted initially involuntarily but he requested to sign voluntary papers during psychiatric evaluation. CHIEF COMPLAINT: "I need script for my medications and I am feeling paranoid and fearful." HISTORY OF PRESENT ILLNESS: According to ED note: " the patient presented to ED with concern of paranoia. Patient was prescribed psychiatric medications during previous hospitalization but his medications was not continued. As per mother's petition the patient was paranoid, fearful, not eating and reports being poisoned. Patient had previous psychiatric hospitalization at the same unit May of last year and he was discharged on Risperidal 1 mg BID with discharge diagnosis Psychotic disorder and cannabis use disorder. Patient was very superficial, guarded and not good historian. He reports didn't take his psychiatric medications for more than 2 weeks before coming to the the hospital. He admitted for feeling paranoid, and sometimes feels been watched. He denies feeling other people want to poison him but again he was very superficial and guarded. He reports noticed changes in his sleep and appetite that he was sleeping and eating less than usual for last 2 weeks. He denies any hallucinations or other delusions but he is probably internally preoccupied. Denies feeling persistently depressed, and reports no symptoms of hopeless, or suicidal. He denies any severe mood symptoms, outburst of anger or severe agitation, and denies any homicidal ideation. He reports previous episodes of severe depression that he reports previous times with severe depressed mood, lack of motivation, feeling hopeless and had suicidal ideation. He reports sometimes feeling anxious but denies feeling always anxious, or having racing thoughts. He denies recent panic attacks, and denies nightmares, flashbacks, intrusive thoughts or other symptoms of PTSD. Patient denies any previous or current manic symptoms including elated, euphoric or irritable mood, feeling grandiose with inflated self-esteem, with impulsive uninhibited behavior, flight of ideas, absence need to sleep, pressured speech, not feeling tired, and unusual level of energy and activities including increased goal directed activities. He denies any history of self-injurious behavior but admitted for history of previous suicidal attempt. PAST PSYCHIATRIC HISTORY: Previous diagnoses: "anxious" Previous psychiatric hospitalizations: Reports "few" previous psychiatric hospitalization, first time was in [address] [facility] for depression and suicidal ideation, and last time was at this unit in May 2019 for psychotic symptoms. . Previous suicide attempts: Admitted for one previous suicidal attempt "few years ago" by "tried to shot myself". Previous outpatient psychiatric treatment: Patient couldn't remember when was last time was seen by outpatient psychiatrist. Current psychiatric medications: Denies any current outpatient psychiatric service. Previous medication trials: Patient couldn't recall any previous psychiatric medications trials besides ADHD medications "Ritalin, Adderall" when he was 7 year-old. SUBSTANCE ABUSE HISTORY: Nicotine: "sometimes, occasionally", less than a pack every week. Alcohol: "sometimes" "once or twice every other week", but he reports history of heavy alcohol drinking. Denies any previous DUI, PI, previous alcohol intoxication or treatment. He reports history of heavy use of marijuana but he cut down after he got on probation. He denies use of any other street drugs and denies any history of IV drug use. Social History: Patient was born in [facility] and raised up by his mother and stepfather. Housing: Currently lives with his mother and stepfather. The patient is never and currently unemployed. Education: Patient reports attaining an educational level of 10th grade. Children: Patient reports having no children. Legal history: Currently on probation, reports has charges that "broke to my fat her's house" History of psychological trauma: Denies FAMILY HISTORY: Psychiatric Illness: Denies . Substance abuse: Both parents suffers from "addiction problems to cigarette and alcohol". Completed Suicides: Denies. Medical History: GERD MENTAL STATUS EVALUATION: Appearance: Appears stated age, not-well groomed, average body built, and no specific features. Gait/ posture: Steady gait, normal arm swinging, no abnormal movements, with relaxed posture. Attitude and Behavior: not engaged, not fully cooperative, poor eye contact during course of interview. Motor Activity: decreased psychomotor activity. Speech: spontaneous, slow rate, rhythm, and articulation. low volume. not pressured. Language: Articulating, naming objects and repeat phrases. Mood: "anxious" Affect: Restricted to flat. Thought process: slow rate. . Association: intact, not circumstantial or tangential. Thought content: Paranoid delusions, Denies suicidal thoughts, Denies homicidal thoughts, Denies intentions, or plans. Perception: Denies hallucinations Alertness: No impairment. Concentration: Impaired Orientation: Oriented to time, place, person, and situation. Insight regarding psychiatric condition: fair Judgment regarding daily activities and social situation: fair Impulse control: fair Strengths: stable general medical condition family support Challenges: poor compliance with treatment marijuana use Allergies Allergy/AdvReac Type Severity Reaction Status Date / Time No Known Allergies Allergy Verified 11/27/19 15:43 Vital Signs Temp 98.4 F 11/28/19 06:58 Pulse 133 H 11/28/19 06:58 Resp 16 11/28/19 06:58 BP 120/77 11/28/19 06:58 Pulse Ox 98 11/27/19 15:08 Intake & Output 11/27/19 11/28/19 11/28/19 18:59 06:59 18:59 Weight 65.771 kg Review of Lab results: Laboratory Last Values WBC 6.5 k/uL (4.0-11.0) 11/28/19 07:00 RBC 5.64 m/uL (4.30-5.90) 11/28/19 07:00 Hgb 16.8 gm/dL (13.0-17.5) 11/28/19 07:00 Hct 49.7 % (39.0-53.0) 11/28/19 07:00 MCV 88.2 fL (80.0-100.0) 11/28/19 07:00 MCH 29.8 pg (25.0-35.0) 11/28/19 07:00 MCHC 33.8 g/dL (31.0-37.0) 11/28/19 07:00 RDW 12.7 % (11.5-15.5) 11/28/19 07:00 Plt Count 247 k/uL (150-450) 11/28/19 07:00 Neutrophils % 61 % 11/28/19 07:00 Lymphocytes % 27 % 11/28/19 07:00 Monocytes % 7 % 11/28/19 07:00 Eosinophils % 1 % 11/28/19 07:00 Basophils % 1 % 11/28/19 07:00 Neutrophils # 3.9 k/uL (1.3-7.7) 11/28/19 07:00 Lymphocytes # 1.8 k/uL (1.0-4.8) 11/28/19 07:00 Monocytes # 0.5 k/uL (0-1.0) 11/28/19 07:00 Eosinophils # 0.0 k/uL (0-0.7) 11/28/19 07:00 Basophils # 0.0 k/uL (0-0.2) 11/28/19 07:00 Sodium 140 mmol/L (137-145) 11/28/19 07:00 Potassium 4.3 mmol/L (3.5-5.1) 11/28/19 07:00 Chloride 104 mmol/L (98-107) 11/28/19 07:00 Carbon Dioxide 23 mmol/L (22-30) 11/28/19 07:00 Anion Gap 13 mmol/L 11/28/19 07:00 BUN 14 mg/dL (9-20) 11/28/19 07:00 Creatinine 0.75 mg/dL (0.66-1.25) 11/28/19 07:00 Est GFR (CKD-EPI)AfAm >90 (>60 ml/min/1.73 sqM) 11/28/19 07:00 Est GFR (CKD-EPI)NonAf >90 (>60 ml/min/1.73 sqM) 11/28/19 07:00 Glucose 80 mg/dL (74-99) 11/28/19 07:00 Calcium 10.0 mg/dL (8.4-10.2) 11/28/19 07:00 Total Bilirubin 3.4 mg/dL (0.2-1.3) H 11/28/19 07:00 AST 31 U/L (17-59) 11/28/19 07:00 ALT 18 U/L (4-49) 11/28/19 07:00 Alkaline Phosphatase 63 U/L (38-126) 11/28/19 07:00 Total Protein 8.3 g/dL (6.3-8.2) H 11/28/19 07:00 Albumin 5.1 g/dL (3.5-5.0) H 11/28/19 07:00 Triglycerides 76 mg/dL (<150) 11/28/19 07:00 Cholesterol 250 mg/dL (<200) H 11/28/19 07:00 LDL Cholesterol, Calc 196 mg/dL (0-99) H 11/28/19 07:00 HDL Cholesterol 39 mg/dL (40-60) L 11/28/19 07:00 TSH 1.290 mIU/L (0.465-4.680) 11/28/19 07:00 Assessment: Psychotic disorder, unspecified. Rule out Schizo-affective disorder, depressive type Rule out Cannabis use disorder GERD TREATMENT PLAN/RECOMMENDATIONS: Medical Decision making: The patient presented with psychotic symptoms, severe paranoia that he was not able to take care of himself and he was not taking his psychiatric medications. The patient at high risk to hurt self and probably others if he is not in the inpatient setting. The patient's psychiatric symptoms are not stable and he needs further management of psychiatric medications and further planning for discharge. Therefore, inpatient level of care is needed. Continue the patient inpatient for safety. Continue the patient under 15 minutes safe check for safety. Psych education regarding his diagnoses, and treatment option. The patient will also be provided with individual therapy, group therapy, substance abuse counseling, gain insight, and coping skills. Consider medical consultation if any acute medical issue arise. Medications: Restart Risperidal 1 mg BID for psychotic symptoms and as a mood stabilizer Trazodone 50 mg HS PRN for insomnia Vistaril 25 mg TID PRN for anxiety The patient will be assessed on daily basis for his depression, suicidal ideation, and will be discharged back to his outpatient mental health provider upon stabilization. EXPECTED LENGTH OF STAY: 5-7 days.
[2019-11-28 18:37] LABS: Hemoglobin A1C 5.1 % (4.0-6.0)
[2019-11-28] MEDS: risperiDONE 1 MG TAB PO SCH (20:40)
[2019-11-29] MEDS: risperiDONE 1 MG TAB PO SCH ×2 (08:53→22:26)
--- NOTE | 2019-11-29 13:47 | P.PN ---
Progress Note - Text Progress Note Date: 11/29/19 Subjective: Patient was seen today as a cross coverage for . The patient was evaluated, chart reviewed, case discussed with the treatment team. Patient reported better sleep last night. Appetite was reported as " fine". Patient has not been going to groups and other unit activities. The patient is compliant with his medications and denies any adverse reactions. Patient presented guarded and superficial in his answers. He denies any hallucinations, but reports still having paranoid ideation. He reports depression is controlled and he denies feeling suicidal or homicidal. He denies any manic symptoms including a euphoric mood, lack need to sleep due to increased activities, or uninhibited behavior. Objective: Vitals has been reviewed. MENTAL STATUS EVALUATION: Appearance: Appears stated age, not-well groomed, average body built, and no specific features. Gait/ posture: Steady gait, normal arm swinging, no abnormal movements, with relaxed posture. Attitude and Behavior: not engaged, not fully cooperative, poor eye contact during course of interview. Motor Activity: decreased psychomotor activity. Speech: spontaneous, slow rate, rhythm, and articulation. low volume. not pressured. Language: Articulating, naming objects and repeat phrases. Mood: "anxious" Affect: Restricted to flat. Thought process: slow rate. . Association: intact, not circumstantial or tangential. Thought content: Paranoid ideation, Denies suicidal thoughts, Denies homicidal thoughts, Denies intentions, or plans. Perception: Denies hallucinations Alertness: No impairment. Concentration: Impaired Orientation: Oriented to time, place, person, and situation. Insight regarding psychiatric condition: fair Judgment regarding daily activities and social situation: fair Impulse control: fair Assessment: Assessment: Psychotic disorder, unspecified. Rule out Schizo-affective disorder, depressive type Rule out Cannabis use disorder GERD TREATMENT PLAN/RECOMMENDATIONS: Continue inpatient level of care for safety and further need of stabilization on medication. Continue the patient under 15 minutes safe check for safety. Psych education regarding his diagnoses, and treatment option. The patient will also be provided with individual therapy, group therapy, substance abuse counseling, gain insight, and coping skills. Consider medical consultation if any acute medical issue arise. Medications: Continue Risperidal 1 mg BID for psychotic symptoms and as a mood stabilizer Continue Trazodone 50 mg HS PRN for insomnia Continue Vistaril 25 mg TID PRN for anxiety Continue other when necessary medications The patient will be assessed on daily basis for his depression, suicidal ideation, and will be discharged back to his outpatient mental health provider upon stabilization.
[2019-11-30] MEDS: risperiDONE 1 MG TAB PO SCH ×2 (08:06→21:10)
--- NOTE | 2019-11-30 11:15 | P.PN ---
Progress Note - Text Interval history: The patient is found in the hallway he follows me to an interview room. Throughout the morning he was observed walking in the hallway rather than attending groups. Often he was looking down and appeared preoccupied. He was admitted over the weekend for presumed symptoms of psychosis. He psychiatric evaluation and subsequent progress note were reviewed. He has been restarted on Risperdal which has been prescribed to him in the past. He indicates that the Risperdal was helpful to him in the past while he was incarcerated. He has no questions or concerns regarding the medication. He indicates he had trouble sleeping last night staff recorded he slept 6 hours. Staff report that he has not eaten his last few meals. He denies having any thoughts of his food being tampered with her poisoned but this was reported upon presentation to the hospital. Mental status exam: The patient is a thin male appearing his stated age. He has his hair shave short. He is dressed in his own clothing he has a disheveled appearance. He remains calmly seated in the chair during the session. He often looks down at the floor. He initiates no spontaneous speech but we'll offer brief answers to questions. He is reporting no thoughts of harming himself or others he may be underreporting symptoms. He is nonspecific and vague but indicates he is still experiencing auditory hallucinations. He states in the recent past they have been commanding. He does not specify what they are saying today. He appears guarded suspicious and preoccupied but he denies having any paranoid thinking. Insight and judgment are impaired. He demonstrates no verbal or physical aggressiveness he demonstrates no involuntary repetitive movements. He demonstrates no tangential thinking loose associations or flight of ideas. Plan: The patient appears to be experiencing symptoms of psychosis. We will continue the Risperdal as written. We will consider titrating the dose further if needed. Vital signs reviewed. We will monitor him for safety. He is encouraged to attend groups. We will involve his family in treatment and discharge planning as he will allow.
[2019-12-01] MEDS: risperiDONE 1 MG TAB PO SCH ×2 (09:54→21:35)
--- NOTE | 2019-12-01 10:54 | P.PN ---
Progress Note - Text Interval history: The patient is found in the hallway follows me to an interview room. He indicates his mood is better. He states the hallucinations are gone. He reports no paranoid thinking. Staff report that he has been mildly more interactive. Eye contact is improved. He indicates he is eating meals. He reports he slept well last night staff reported he slept 5 hours. He is more focused on being discharged today. Mental status exam: The patient is alert he is a thin male appearing his stated age. He is dressed in a hospital gown over his clothing. Eye contact is improved from yesterday. He looks down often but does make a point to look up. He appears frustrated. He does continue to appear preoccupied at times but he denies having any hallucinations. It is possible he is underreporting hallucinations. He demonstrated no verbal or physical aggressiveness. He demonstrates no involuntary repetitive movements. Speech can be spontaneous there is odd delays in between statements at times it looks like he struggles with formulating his question at times. Again this may be due to preoccupation with internal stimuli. He is reporting no suicidal or homicidal ideation intent or plan. Plan: The patient will continue on his current psychotropic medication. We will consider titrating the Risperdal further if needed. Vital signs reviewed. He requires continued psychiatric hospitalization for his symptoms of psychosis. There is some subtle improvement that we are observing. We will continue to monitor for symptoms of psychosis and monitor his acute safety risk.
[2019-12-01] MEDS: hydrOXYzine PAMOATE 25 MG CAP PO PRN (22:32)
--- NOTE | 2019-12-02 09:05 | P.PN ---
Progress Note - Text Interval history: The patient is found in the [facility] he follows me to an interview room. He indicates his mood is okay. He states that he feels the Risperdal is causing auditory and visual hallucinations. He notes having some upset stomach. He previously took Protonix while on Risperdal and we discussed that that could be initiated. We reviewed that the medication does not cause hallucinations and perhaps the dose is not titrated sufficiently to treat his psychosis. He states that the hallucinations are telling him funny things such as "you are a bunny". He indicates he slept last night staff report he slept 5 hours he states he is eating. Social work notes reviewed an attempt was made to contact his mother. Mental status exam: The patient is a thin male appearing his stated age. He is dressed in hospital gowns. Hygiene grooming adequate. Eye contact continues to improve each day. Affect is overly bright and expansive today. He demonstrates exaggerated smiling and laughter at times. He is responding to auditory hallucinations. He indicates they are saying funny things during our interaction. He is reporting no suicidal or homicidal ideation intent or plan. He reports feeling safe in the hospital. Insight and judgment are limited. He demonstrates no verbal or physical aggressiveness he demonstrates no involuntary repetitive movements. Plan: The patient will continue on the Risperdal we will titrate the dose to 1 mg in the morning 2 mg at bedtime. He continues to experience acute symptoms of psychosis that are causing psychosocial dysfunction. Vital signs reviewed. He is encouraged to participate fully in the milieu. We will continue our efforts to have his mother come in for support meeting to evaluate his progress.
[2019-12-02] MEDS: PANTOPRAZOLE 40 MG TABLET PO SCH (10:11)
[2019-12-02] MEDS: risperiDONE 1 MG TAB PO SCH (10:11)
[2019-12-02] MEDS ORDERED: risperiDONE 2 MG TAB PO SCH (21:00)
--- NOTE | 2019-12-03 09:05 | P.PN ---
Progress Note - Text Interval history: The patient is found in the hallway he follows me to an interview room. He states that he is quite troubled this morning by auditory hallucinations. He is very reluctant to discuss what he is hearing. He does keep saying "I don't understand it". At first he seems distraught and frustrated. As the session progresses he then again begins demonstrating bizarre laughter and smiling. He then states "that was weird you almost is changed into something" he later stated that I appeared to change into something scary. Again he does not provide many specifics. He had no visitors last evening he states he spoke with his mother via phone this morning. We reviewed the psychotropic medication he feels the Risperdal has not provided much benefit at this point. He is a poor historian regarding psychiatric medications. Mental status exam: The patient is alert he is dressed in his own clothing and wearing a hospital gown. Hygiene grooming adequate. Eye contact is improved compared to admission. He describes his mood as being very frustrated. He is endorsing ongoing auditory hallucinations. At first he states they're noncommanding then later he spontaneously states that they have told him to kill himself. They appear to be derogatory but he refuses to specify what is being said. He appears to be experiencing some visual hallucinations as noted above. Although he reports no paranoid thinking he seems to feel unsafe. He demonstrates no verbal or physical aggressiveness. Thought process is not well organized at times. He has difficulty completing sentences. Insight and judgment are limited. He demonstrates no repetitive involuntary movements. Plan: The patient will continue on the Risperdal we will titrate to 2 mg twice daily. He requires continued psychiatric hospitalization. We will again try to reach out to his mother specifically to see if there has been any antipsychotic medication that has worked better for him. He is encouraged to participate in the milieu. Vital signs reviewed.
[2019-12-03] MEDS: risperiDONE 2 MG TAB PO SCH ×2 (10:04→21:27)
[2019-12-03] MEDS: PANTOPRAZOLE 40 MG TABLET PO SCH (10:04)
[2019-12-03] MEDS: risperiDONE 1 MG TAB PO SCH (10:17)
[2019-12-04] MEDS: PANTOPRAZOLE 40 MG TABLET PO SCH (09:09)
[2019-12-04] MEDS: risperiDONE 2 MG TAB PO SCH ×2 (09:09→20:59)
--- NOTE | 2019-12-04 09:30 | P.PN ---
Progress Note - Text Interval history: The patient's found in his room he follows me to an interview room. He states that his mood is better. He reports hearing no voices today. We discussed that it seems unusual that they've been fairly strong over the last 2 days and would be absent today. He also asked about being put on a non- stimulant for ADHD. We discussed that Strattera would be an option but that would be more appropriately started in the outpatient venue. He did sleep last night appetite is stable. Social work was able to speak with the patient's mother. It appears she has no collateral regarding successful trials with antipsychotic medication. The patient selectively attends groups. He states it is difficult talking to people. Again he is very ambiguous in his speech he provides partial answers unable to stop talking. Mental status exam: The patient is alert he is cooperative he has a constricted to blunted affect. He indicates he is hearing no voices but that does not seem likely. He does continue to appear to be distracted. He often looks down at the floor. As noted he will start answering questions and then stop he frequently states "I don't know". Thought process is not well organized but he does not appear hypomanic or manic. Insight and judgment limited. He demonstrates no verbal or physical aggressiveness he demonstrates no involuntary repetitive movements. Hygiene grooming fair. Plan: The patient will continue on the Risperdal as written. We will monitor for any continued evidence of psychosis specifically auditory hallucinations. We will defer initiation of Strattera to his outpatient clinic. He is encouraged to fully participate in the milieu we will monitor him for safety. Vital signs reviewed. We will await input from family after they visit this weekend.
[2019-12-05] MEDS: PANTOPRAZOLE 40 MG TABLET PO SCH (08:40)
[2019-12-05] MEDS: risperiDONE 2 MG TAB PO SCH ×2 (08:40→21:02)
[2019-12-05] MEDS ORDERED: MD COMMUNICATION TO PHARMACY 1 EACH MISC PO PRN ×2 (21:16→21:46)
[2019-12-05] MEDS: [UNRECOGNIZED DRUG - OTHER] TOPICAL PRN (22:03)
[2019-12-06] MEDS: PANTOPRAZOLE 40 MG TABLET PO SCH (09:01)
[2019-12-06] MEDS: risperiDONE 2 MG TAB PO SCH ×2 (09:01→21:41)
[2019-12-06 12:18] VITALS: BMI 21.7
--- NOTE | 2019-12-06 16:31 | P.PN ---
Progress Note - Text Progress Note Date: 12/05/19 Clinical Problems: Schizophrenia, acne Interim history: For the medical record and interviewed the patient. He was without complaint or concern. Later and they received a call from nursing staff requesting order to continue his home proactive in the treatment. Mental status exam: He presented as a tall thin male with moderate facial acne. He is pleasant on approach and appeared to attend to interview. He had a blunted facial expression. His speech was spontaneous with decreased rate, rhythm and volume. He denied suicidal homicidal ideation. He did not appear guarded or suspicious. He denied experiencing auditory hallucinations. Assessment: He appears moderately well and much improved from admission. Plan: Continue current plan including Risperdal 2 mg by mouth twice a day.
--- NOTE | 2019-12-06 16:33 | P.PN ---
Progress Note - Text Progress Note Date: 12/06/19 Clinical Problems: Schizophrenia, acne Interim history: I reviewed the medical record and interviewed the patient. I pushed him as he was laying in bed. He came to my office for the interview. He stated that he thinks he is doing much better. He is able to eat all conflict. He talked about a "voice" prior to admission telling him not to eat. The police is present but it's not as distressing and no longer control his behavior. Mental status exam: He was casually groomed and wearing hospital gown. He made eye contact and attended to the interview. He had a blunted facial expression. His speech was spontaneous with normal rate, rhythm and volume. He denied suicidal or homicidal ideation. His thinking was concrete but organized and goal directed. He described hallucinations but did not appear to be responding to internal stimuli. Assessment: He appears much improved from admission Plan: Continue current treatment plan. Continue Risperdal 2 mg by mouth twice a day.
[2019-12-06] MEDS: [UNRECOGNIZED DRUG - OTHER] TOPICAL PRN (18:25)
[2019-12-07] MEDS: [UNRECOGNIZED DRUG - OTHER] TOPICAL PRN (08:51)
[2019-12-07] MEDS: risperiDONE 2 MG TAB PO SCH (10:19)
[2019-12-07] MEDS: PANTOPRAZOLE 40 MG TABLET PO SCH (10:19)
--- NOTE | 2019-12-07 11:01 | P.PN ---
Progress Note - Text Interval history: The patient is found in the [facility] he follows me to an interview room. Social work notes were reviewed. The patient's family visited over the weekend and felt that the patient had made little progress. Progress notes are reviewed as well. The patient indicates that he feels of Risperdal has helped his anxiety and he feels it has reduced the voices somewhat. Today he indicates voices are telling him to hurt other people but he states he will not act on those hallucinations because "I know better". He indicates being able to hear others' thoughts at times and he is disturbed by those. He is reporting no side effects from the Risperdal. He has been attending groups. Staff recorded he slept 5 hours last evening. He has been going down to meals. He states his goal for today is "to be more positive". Mental status exam: The patient is a male appearing his stated age. He is alert he is dressed in hospital attire. Hygiene and grooming fair. Eye contact is good speech is fluent more spontaneous. Affect is mainly constricted with some brief smiling at times. He reports auditory hallucinations as noted he reports being able to hear others' thoughts. He is reporting no visual hallucinations he states "that stopped but it is not gone". He demonstrates no verbal or physical aggressiveness. Insight and judgment limited. He was more attentive to the interview today than prior visits. He is demonstrating no repetitive involuntary movements. Plan: The patient will continue on the Risperdal we will titrate to 2 mg the morning 3 mg at bedtime. Overall his affect is brighter he is more directable but he is continuing to report acute symptoms of psychosis. We will allow the Risperdal more time to demonstrate efficacy. We will monitor him for safety and encourage full participation in the milieu. We will continue to solicit input from his family after they visit.
[2019-12-07] MEDS: risperiDONE 1 MG TAB PO SCH (21:50)
[2019-12-08] MEDS: risperiDONE 2 MG TAB PO SCH (09:23)
[2019-12-08] MEDS: PANTOPRAZOLE 40 MG TABLET PO SCH (09:24)
--- NOTE | 2019-12-08 10:51 | P.PN ---
Progress Note - Text Interval history: The patient is found in his room he follows me to an interview room. He indicates that his mood is okay. He initially states that he is not experiencing any hallucinations then later admits that he is still experiencing some. He states today they are not directing any harm to others or self-harm. He does find them disturbing at times however. He indicates he slept last night appetite is stable. He did not go to groups this morning but plans to attend this afternoon. He has no questions or concerns regarding his psychotropic medication. Mental status exam: The patient is an alert male appearing his stated age. Hygiene grooming adequate. Speech is fluent and spontaneous nonpressured. He maintains a blunted affect. He reports ongoing auditory hallucinations that can be derogatory at times causing him some distress. He reports her noncommanding currently but they were yesterday. He is reporting no suicidal ideation on his own. He reports no thoughts of wanting to hurt others. He demonstrates no verbal or physical aggressiveness he is demonstrating no involuntary repetitive movements. Insight and judgment limited. Plan: The patient will be continued on the Risperdal as written. It appears there has been some mild clinical improvement so far. He has been more interactive affect has been brighter and he reports there has been some improvement in the psychosis. We will monitor him for safety and encourage full participation in the milieu. We expect that his family will visit tomorrow evening and they can provide further collateral information. Vital signs reviewed.
[2019-12-08] MEDS: risperiDONE 1 MG TAB PO SCH ×2 (21:17→21:19)
[2019-12-09] MEDS: PANTOPRAZOLE 40 MG TABLET PO SCH (08:56)
[2019-12-09] MEDS: risperiDONE 2 MG TAB PO SCH (08:56)
--- NOTE | 2019-12-09 09:43 | P.PN ---
Progress Note - Text Progress Note Date: 12/09/19 Interval History: Patient was seen today as he was attending group and was agreeable to speak to her in the office. Patient states that he is feeling mildly improved today with regard to his mood. He states that his I have any depression and is showing an improvement in his insight. He spoke about the events leading up to his hospitalization and how he stopped taking his medications in nursing home. Patient states that he has been going to groups and trying to participate as best as he can. He states that the medications are helping him sleep at night including that he slept around 7 hours last night. He states that he does have some mild auditory hallucinations however cannot elaborate on the content of them and states that they have improved. At this time patient denies any suicidal or homical ideations, intent or plan. Patient denies any visual hallucinations and denies any paranoia or delusions. Patient denies any side effects from the medications and has been compliant with meds. Mental Status Exam: General Appearance: Patient appears to be stated age is alert, directable at tempts to cooperate. Patient has facial acne and wearing a hospital gown. Behavior: Patient is calmly seated without any agitated behavior. Speech: Patient's speech is fluent and nonpressured. Mood/Affect: Mood is improving, affect is congruent and constricted. Suicidality/Homicidality: Patient denies having any suicidal or homicidal ideation intent or plan. Perceptions: Patient denies any visual hallucinations and admits to mild auditory hallucinations which have improved. Though content/process: There is no evidence of any delusional thought content and thought process is linear and goal-directed. Memory and concentration: AOX3, grossly intact for the purposes of this session Judgment and insight: Improving mildly Assessment Psychosis unspecified rule out substance-induced psychosis Plan: -Patient continues to meet criteria for inpatient psychiatric admission for symptom stabilization and safety. Patient has signed adult voluntary form and medication consent and was placed in patient's chart. -Medications: Continue with Risperdal 3 mg daily at bedtime +2 mg every morning for psychosis/mood stabilization as written by Dr. Craft. Vistaril when necessary for anxiety. Trazodone when necessary for sleep. -When necessary Geodon for agitation/aggression. -NRT -not need this patient does not smoke -SW on board for discharge planning. Patient has been mildly improving cli nically, will speak with social worker masters and team about contact with mother and discharge planning. Likely discharge in 1-2 days.
[2019-12-10] MEDS: PANTOPRAZOLE 40 MG TABLET PO SCH (08:46)
[2019-12-10] MEDS: hydrOXYzine PAMOATE 25 MG CAP PO PRN ×3 (08:46→22:00)
[2019-12-10] MEDS: risperiDONE 2 MG TAB PO SCH ×3 (08:46→22:00)
--- NOTE | 2019-12-10 09:31 | P.PN ---
Progress Note - Text Progress Note Date: 12/10/19 Interval History: Patient was seen today wondering always and was agreeable to speak to her in the office. Patient today appeared to be upset and more constricted in his affect. Patient also appeared to be more paranoid. He states that he doesn't trust most people on the unit and as per nursing staff patient did not sleep last night and was more intrusive. Patient continues to have superficial insight and judgment and patient states that he is taking his meds however patient was offered to take the long-acting injection to ensure compliance however patient adamantly declined and got defensive towards hand sign writer. Patient states that he has been going to groups and trying to participate as best as he can. He states that the medications are helping him. He states that he does have some mild auditory hallucinations however cannot elaborate on the content of them. At this time patient denies any suicidal or homical ideations, intent or plan. Patient denies any visual hallucinations and denies any delusions. Patient denies any side effects from the medications and has been compliant with meds. Mental Status Exam: General Appearance: Patient appears to be stated age is alert, directable attempts to cooperate. Patient has facial acne and wearing a hospital gown. Behavior: Patient is calmly seated without any agitated behavior. Upset at times Speech: Patient's speech is fluent and nonpressured. Mood/Affect: Mood is improving, affect is congruent and constricted. Suicidality/Homicidality: Patient denies having any suicidal or homicidal ideation intent or plan. Perceptions: Patient denies any visual hallucinations and admits to mild auditory hallucinations which have improving Though content/process: There is no evidence of any delusional thought content and thought process is linear and goal-directed. Poor insight and judgment. Memory and concentration: AOX3, grossly intact for the purposes of this session Judgment and insight: Poor Assessment Psychosis unspecified rule out substance-induced psychosis Plan: -Patient continues to meet criteria for inpatient psychiatric admission for symptom stabilization and safety. Patient has signed adult voluntary form and medication consent and was placed in patient's chart. -Medications: Increased Risperdal 4 mg daily at bedtime + 2 mg every morning for psychosis/mood stabilization. Vistaril when necessary for anxiety. Trazodone when necessary for sleep. -When necessary Geodon for agitation/aggression. -NRT -not need this patient does not smoke -SW on board for discharge planning. Patient did not have a good night last night and appears to be more paranoid this morning and intrusive, will hold off on discharge today and reevaluate patient tomorrow morning.
[2019-12-10] MEDS: [UNRECOGNIZED DRUG - OTHER] TOPICAL PRN ×2 (10:34→22:00)
[2019-12-11] MEDS: [UNRECOGNIZED DRUG - OTHER] TOPICAL PRN (07:57)
[2019-12-11] MEDS: PANTOPRAZOLE 40 MG TABLET PO SCH (10:33)
[2019-12-11] MEDS: risperiDONE 2 MG TAB PO SCH ×2 (10:33→21:49)
--- NOTE | 2019-12-11 12:39 | P.PN ---
Progress Note - Text Progress Note Date: 12/11/19 Interval History: Patient was seen today during goalsetting group and was agreeable to speak to her in the office. Patient today appeared to be confrontational with typewriter operator automatic and argumentative. Patient also appeared somewhat paranoid. He states that he trying to get along more with people on the unit and has been attending groups. Patient continues to have superficial insight and judgment and patient states that he is taking his meds. Patient got upset once again about the idea of taking a long-acting injection and states that he does not want to do that right now. He states that the medications are helping him stay calmer. He states that the auditory hallucinations of an improving mildly and At this time patient denies any suicidal or homical ideations, intent or plan. Patient denies any visual hallucinations and denies any delusions. Patient denies any side effects from the medications and has been compliant with meds. Mental Status Exam: General Appearance: Patient appears to be stated age is alert, argumentative, attempts to cooperate. Patient has facial acne and wearing a hospital gown. Behavior: Patient is calmly seated without any agitated behavior. Argumentative Speech: Patient's speech is fluent and nonpressured. Mood/Affect: Mood is improving, affect is congruent and constricted. Suicidality/Homicidality: Patient denies having any suicidal or homicidal ideation intent or plan. Perceptions: Patient denies any visual hallucinations and admits to mild au ditory hallucinations which have improving Though content/process: There is no evidence of any delusional thought content and thought process is linear and goal-directed. Poor/superficial insight and judgment. Memory and concentration: AOX3, grossly intact for the purposes of this session Judgment and insight: Poor, improving mildly Assessment Psychosis unspecified rule out substance-induced psychosis Plan: -Patient continues to meet criteria for inpatient psychiatric admission for symptom stabilization and safety. Patient has signed adult voluntary form and medication consent and was placed in patient's chart. -Medications: Continue with Risperdal 4 mg daily at bedtime + 2 mg every morning for psychosis/mood stabilization. Vistaril when necessary for anxiety. Trazodone when necessary for sleep. Patient is continuing to decline long- acting injection to ensure compliance. -When necessary Geodon for agitation/aggression. -NRT -not need this patient does not smoke -SW on board for discharge planning. Siderographist spoke with patient's mother Mariah over the phone at [phone] who states that she feels patient is not ready to come home and states that she feels he is more paranoid. She also states that patient was previously doing well on Risperdal however stopped taking it. Patient's mother states that she would be more comfortable if he was observed over the weekend. Likely discharge early next week.
[2019-12-11] MEDS: hydrOXYzine PAMOATE 25 MG CAP PO PRN (21:48)
[2019-12-12] MEDS: risperiDONE 2 MG TAB PO SCH ×3 (09:23→21:23)
[2019-12-12] MEDS: PANTOPRAZOLE 40 MG TABLET PO SCH (09:23)
--- NOTE | 2019-12-12 10:36 | P.PN ---
Progress Note - Text Progress Note Date: 12/12/19 Interval History: Patient was seen today after group and was agreeable to speak to her in the of fice. Patient today appeared to be less confrontational with marketing copywriter however did appear to have a bizarre blank stare. He denied any overnight events and states that he is doing "quite well today". He claims that the medications he feels it is helping him with his mood and also making him feel less paranoid. He states that he spoke with his mother this morning however did not elaborate much on the conversation. He states that he trying to get along more with people on the unit and has been attending groups. Patient continues to have superficial insight and judgment and patient states that he is taking his meds. He states that the auditory hallucinations have subsided at this time and patient denies any suicidal or homical ideations, intent or plan. Patient denies any visual hallucinations. Patient denies any side effects from the medications and has been compliant with meds. Mental Status Exam: General Appearance: Patient appears to be stated age is alert, less argumentative. Patient has facial acne and wearing street clothing. Behavior: Patient is calmly seated without any agitated behavior. More cooperative today. Has a blank stare. Speech: Patient's speech is fluent and nonpressured. Mood/Affect: Mood is improving, affect is congruent and constricted. Suicidality/Homicidality: Patient denies having any suicidal or homicidal ideation intent or plan. Perceptions: Patient denies any visual hallucinations and denies any auditory hallucinations Though content/process: There is no evidence of any delusional thought content and thought process is linear and goal-directed. Poor/superficial insight and judgment. Memory and concentration: AOX3, grossly intact for the purposes of this session Judgment and insight: improving mildly Assessment Psychosis unspecified rule out substance-induced psychosis Plan: -Patient continues to meet criteria for inpatient psychiatric admission for symptom stabilization and safety. Patient has signed adult voluntary form and medication consent and was placed in patient's chart. -Medications: Continue with Risperdal 4 mg daily at bedtime + 2 mg every morning for psychosis/mood stabilization. Vistaril when necessary for anxiety. Trazodone when necessary for sleep. Patient is continuing to decline long- acting injection to ensure compliance. -When necessary Geodon for agitation/aggression. -NRT -not need this patient does not smoke -SW on board for discharge planning. Encourage patient to attend groups and participate in milieu. Likely discharge early next week.
[2019-12-12] MEDS: hydrOXYzine PAMOATE 25 MG CAP PO PRN (21:24)
[2019-12-13] MEDS: risperiDONE 2 MG TAB PO SCH ×2 (08:36→20:51)
[2019-12-13] MEDS: PANTOPRAZOLE 40 MG TABLET PO SCH (08:37)
--- NOTE | 2019-12-13 10:50 | P.PN ---
Progress Note - Text Progress Note Date: 12/13/19 Interval History: Patient was seen today after group and was wandering the hallways and was agre eable to speak to her in the office. Patient today appeared to be less confrontational and more directable with marine underwriter. Patient appears to have an improving affect and appeared to be focused on discharge. He states that he feels "ready to go". Patient claims that her medication has been helping him with his thoughts and also his mood. He claims that he has not been talking to his mother or has had her visit over the weekend. Patient continues to have superficial insight and judgment and patient states that he is taking his meds. He states that the auditory hallucinations have subsided at this time and patient denies any suicidal or homical ideations, intent or plan. Patient denies any visual hallucinations. Patient denies any side effects from the medications and has been compliant with meds. Patient states that the Vistaril is helping him with anxiety on an as-needed basis. Mental Status Exam: General Appearance: Patient appears to be stated age is alert, more directable today. Patient has facial acne and wearing street clothing. Behavior: Patient is calmly seated without any agitated behavior. More cooperative today Speech: Patient's speech is fluent and nonpressured. Mood/Affect: Mood is improving, affect is congruent and constricted. Suicidality/Homicidality: Patient denies having any suicidal or homicidal ideation intent or plan. Perceptions: Patient denies any visual hallucinations and denies any auditory hallucinations Though content/process: There is no evidence of any delusional thought content and thought process is linear and goal-directed. Memory and concentration: AOX3, grossly intact for the purposes of this session Judgment and insight: improving mildly Assessment Psychosis unspecified rule out substance-induced psychosis Plan: -Patient continues to meet criteria for inpatient psychiatric admission for symptom stabilization and safety. Patient has signed adult voluntary form and medication consent and was placed in patient's chart. -Medications: Continue with Risperdal 4 mg daily at bedtime + 2 mg every morning for psychosis/mood stabilization. Vistaril when necessary for anxiety. Trazodone when necessary for sleep. Patient is continuing to decline long- acting injection to ensure compliance. -When necessary Geodon for agitation/aggression. -NRT -not need this patient does not smoke -SW on board for discharge planning. Encourage patient to attend groups and participate in milieu. Likely discharge Saturday-Saturday, patient will likely going back to his mother's house.
[2019-12-13] MEDS: hydrOXYzine PAMOATE 25 MG CAP PO PRN ×2 (13:43→20:52)
[2019-12-13] MEDS: [UNRECOGNIZED DRUG - OTHER] TOPICAL PRN (15:21)
[2019-12-14 07:29] VITALS: BP 126/78; PULSE 84; RESP 16; TEMP 98.6
[2019-12-14] MEDS: risperiDONE 2 MG TAB PO SCH (08:31)
[2019-12-14] MEDS: PANTOPRAZOLE 40 MG TABLET PO SCH (08:41)
--- NOTE | 2019-12-14 11:19 | P.DS ---
Providers Date of admission: 11/27/19 13:47 Expected date of discharge: 12/14/19 Attending physician: Shayne Craft Consults: 11/27/19 13:51 Consult Physician Routine Consulting Provider: Awilda Nowak Consult Reason/Comments: medical management Do you want consulting provider notified?: Yes Primary care physician: Stated None - Discharge Diagnosis(es) (1) Unspecified psychosis Current Visit: Yes Status: Acute Priority: High Hospital Course: Admission HPI: Admission note was completed by Dr. Lentz "Colt Montes is a 19-year-old single male who currently lives with his stepfather, unemployed, has psychiatric history of psychotic disorder, and medical history of GERD. The patient has been admitted to our inpatient psychiatric services after been transferred from [facility] ED. Patient was initially brought in to ED accompanied by his mother who petitioned him because of bizarre and paranoid behavior. The patient has been admitted initially involuntarily but he requested to sign voluntary papers during psychiatric evaluation. According to ED note: " the patient presented to ED with concern of paranoia. Patient was prescribed psychiatric medications during previous hospitalization but his medications was not continued. As per mother's petition the patient was paranoid, fearful, not eating and reports being poisoned. Patient had previous psychiatric hospitalization at the same unit May of last year and he was discharged on Risperidal 1 mg BID with discharge diagnosis Psychotic disorder and cannabis use disorder. Patient was very superficial, guarded and not good historian. He reports didn't take his psychiatric medications for more than 2 weeks before coming to the the hospital. He admitted for feeling paranoid, and sometimes feels been watched. He denies feeling other people want to poison him but again he was very superficial and guarded. He reports noticed changes in his sleep and appetite that he was sleeping and eating less than usual for last 2 weeks. He denies any hallucinations or other delusions but he is probably internally preoccupied. Denies feeling persistently depressed, and reports no symptoms of hopeless, or suicidal. He denies any severe mood symptoms, outburst of anger or severe agitation, and denies any homicidal ideation. He reports previous episodes of severe depression that he reports previous times with severe depressed mood, lack of motivation, feeling hopeless and had suicidal ideation. He reports sometimes feeling anxious but denies feeling always anxious, or having racing thoughts. He denies recent panic attacks, and denies nightmares, flashbacks, intrusive thoughts or other symptoms of PTSD. Patient denies any previous or current manic symptoms including elated, euphoric or irritable mood, feeling grandiose with inflated self-esteem, with impulsive uninhibited behavior, flight of ideas, absence need to sleep, pressured speech, not feeling tired, and unusual level of energy and activities including increased goal directed activities. He denies any history of self-injurious behavior but admitted for history of previous suicidal attempt." Hospital course: Upon admission to the unit patient was initially bizarre/paranoid and psychotic. Patient was however directable and agreeable to commence treatment. Patient signed voluntary form for admission. Patient got along well with other patients on the unit and followed unit protocol. Patient was compliant with the medications and denied any side effects throughout hospital course. Patient was started on Risperdal and titrated up to a dose of 4 mg daily at bedtime +2 mg every morning for psychosis/mood stabilization. Patient was also offered Invega Sustenna long-acting injection to ensure compliance however patient declined at this time. Patient was also placed on Vistaril 25 mg twice a day when necessary for anxiety. Patient spoke of [his] stressors and engaged in therapy both group and individual. Patient was also seen by medical team for history and physical exam. Throughout the course of the hospitalization patient gradually improved with regards to psychosis/paranoia, anxiety, mood, sleep and became future oriented with improving insight and judgment. On the day of discharge patient denied any suicidal or homicidal ideations intent or plan denied any auditory or visual hallucinations. Patient endorsed wanting to live for [his health and his future.] Patient denied any paranoia and did not endorse any delusions. Patient does have a significant history of substance abuse and was counseled on abstaining from all substances including alcohol and marijuana. Patient did not give a urine drug screen during his hospitalization however states that he does uses marijuana recreationally. Patient was also counseled on the medications and need for regular compliance and was encouraged to follow-up with their outpatient appointment for mental health and also for primary care. Prior to discharge a family meeting will be arranged by social and political studies professor to answer any questions and ensure safety upon discharge. Mental status exam: General Appearance: Patient appears to be stated age is alert, directable, and cooperative. Patient is in no acute distress and has improving hygiene and g rooming Behavior: Patient is calmly seated without any agitated behavior. Speech: Patient's speech is fluent and nonpressured. Mood/Affect: Patient reports their mood is "better", affect is congruent and constricted. Suicidality/Homicidality: Patient denies having any suicidal or homicidal ideation intent or plan. Perceptions: Patient denies any auditory or visual hallucinations. Though content/process: There is no evidence of any delusional thought content and thought process is linear and goal-directed. Memory and concentration: AOX3, grossly intact for the purposes of this session. Can spell "WORLD" backwards correctly. Judgment and insight: chronically poor however has improved, with guarded prognosis. Impression: Psychosis unspecified, rule out substance-induced psychosis Plan: -Continue with discharge today as patient has improved and stabilized psychiatrically and is not currently an imminent threat to himself and/or others. Patient has a chronically poor insight/judgment and has a history of abusing marijuana and other drugs and will remain a high risk for elevated impulsivity and possible injury to himself and/or others in the future. -Continue medications: Continue with Risperdal 4 mg daily at bedtime +2 mg every morning for psychosis/mood stabilization. Vistaril 25 mg twice a day when necessary when necessary for anxiety. Patient was offered long-acting injection of Invega Sustenna however patient declined at this time and states that he only wants to take oral medications. -Patient was counseled on the need for medication compliance and appropriate follow-up at mental health and also primary care for medical issues. Patient verbalized understanding and agreed. -Social work to arrange for and conduct family meeting to ensure safety upon discharge and answer any questions/concerns. Social work also to arrange for patients follow up appointments for psychiatric care along with follow up with primary care provider. -Patient counseled on abstaining from recreational drugs and marijuana and alcohol. Was informed/educated on the adverse effects on their physical and mental health. Patient verbally agreed and understood. Patient was offered substance abuse treatment however declined at this time. -Patient will be going back to his mother's house upon discharge. food counter worker to arrange for patient to be picked up. -Patient was instructed to return to the hospital or seek immediate medical care if their psychiatric or medical symptoms do worsen or reoccur. Allergies Allergy/AdvReac Type Severity Reaction Status Date / Time No Known Allergies Allergy Verified 11/27/19 15:43 Laboratory Results WBC 6.5 k/uL (4.0-11.0) 11/28/19 07:00 RBC 5.64 m/uL (4.30-5.90) 11/28/19 07:00 Hgb 16.8 gm/dL (13.0-17.5) 11/28/19 07:00 Hct 49.7 % (39.0-53.0) 11/28/19 07:00 MCV 88.2 fL (80.0-100.0) 11/28/19 07:00 MCH 29.8 pg (25.0-35.0) 11/28/19 07:00 MCHC 33.8 g/dL (31.0-37.0) 11/28/19 07:00 RDW 12.7 % (11.5-15.5) 11/28/19 07:00 Plt Count 247 k/uL (150-450) 11/28/19 07:00 Neutrophils % 61 % 11/28/19 07:00 Lymphocytes % 27 % 11/28/19 07:00 Monocytes % 7 % 11/28/19 07:00 Eosinophils % 1 % 11/28/19 07:00 Basophils % 1 % 11/28/19 07:00 Neutrophils # 3.9 k/uL (1.3-7.7) 11/28/19 07:00 Lymphocytes # 1.8 k/uL (1.0-4.8) 11/28/19 07:00 Monocytes # 0.5 k/uL (0-1.0) 11/28/19 07:00 Eosinophils # 0.0 k/uL (0-0.7) 11/28/19 07:00 Basophils # 0.0 k/uL (0-0.2) 11/28/19 07:00 Sodium 140 mmol/L (137-145) 11/28/19 07:00 Potassium 4.3 mmol/L (3.5-5.1) 11/28/19 07:00 Chloride 104 mmol/L (98-107) 11/28/19 07:00 Carbon Dioxide 23 mmol/L (22-30) 11/28/19 07:00 Anion Gap 13 mmol/L 11/28/19 07:00 BUN 14 mg/dL (9-20) 11/28/19 07:00 Creatinine 0.75 mg/dL (0.66-1.25) 11/28/19 07:00 Est GFR (CKD-EPI)AfAm >90 (>60 ml/min/1.73 sqM) 11/28/19 07:00 Est GFR (CKD-EPI)NonAf >90 (>60 ml/min/1.73 sqM) 11/28/19 07:00 Glucose 80 mg/dL (74-99) 11/28/19 07:[address] Glu mg/dL 100 11/28/19 07:00 Hemoglobin A1c 5.1 % (4.0-6.0) 11/28/19 07:00 Calcium 10.0 mg/dL (8.4-10.2) 11/28/19 07:00 Total Bilirubin 3.4 mg/dL (0.2-1.3) H 11/28/19 07:00 AST 31 U/L (17-59) 11/28/19 07:00 ALT 18 U/L (4-49) 11/28/19 07:00 Alkaline Phosphatase 63 U/L (38-126) 11/28/19 07:00 Total Protein 8.3 g/dL (6.3-8.2) H 11/28/19 07:00 Albumin 5.1 g/dL (3.5-5.0) H 11/28/19 07:00 Triglycerides 76 mg/dL (<150) 11/28/19 07:00 Cholesterol 250 mg/dL (<200) H 11/28/19 07:00 LDL Cholesterol, Calc 196 mg/dL (0-99) H 11/28/19 07:00 HDL Cholesterol 39 mg/dL (40-60) L 11/28/19 07:00 TSH 1.290 mIU/L (0.465-4.680) 11/28/19 07:00 Vital Signs Temp 98.6 F 12/14/19 07:06 Pulse 84 12/14/19 07:06 Resp 16 12/14/19 07:06 BP 126/78 12/14/19 07:06 Pulse Ox 93 L 12/07/19 06:46 Intake & Output 12/13/19 12/14/19 12/14/19 18:59 06:59 18:59 Weight 70.7 kg Patient Condition at Discharge: Stable Plan - Discharge Summary Discharge Rx Participant: No New Discharge Prescriptions: New Pantoprazole [Protonix] 40 mg PO AC-BRKFST 28 Days tablet. risperiDONE [RisperDAL] 4 mg PO HS 28 Days tablet risperiDONE [RisperDAL] 2 mg PO DAILY 28 Days tab hydrOXYzine PAMOATE [Vistaril] 25 mg PO BID PRN 28 Days cap PRN Reason: Anxiety Discharge Medication List Pantoprazole [Protonix] 40 mg PO AC-BRKFST 28 Days tablet. 12/14/19 [Rx] hydrOXYzine PAMOATE [Vistaril] 25 mg PO BID PRN 28 Days cap 12/14/19 [Rx] risperiDONE [RisperDAL] 2 mg PO DAILY 28 Days tab 12/14/19 [Rx] risperiDONE [RisperDAL] 4 mg PO HS 28 Days tablet 12/14/19 [Rx] Follow up Appointment(s)/Referral(s): [facility] [Outside] - 12/16/19 5:00 pm (12-16-19 @ 5:00 with James Torres 12-23-19 @ 12:00 with Adriana Guo (tele-psych)) [place] [NON-STAFF] - 1 Week Patient Instructions/Handouts: Polysubstance Abuse (ED), Psychotic Disorder (DC) Activity/Diet/Wound Care/Special Instructions: Activity and diet as tolerated. Avoid the use of street drugs and alcohol. Take all medications as prescribed. When you are in need of refills on your medications please contact your medical provider and/or outpatient psychiatrist to have this done. Please go to scheduled outpatient appointment for aftercare treatment. If symptoms return or become worse, call the crisis line at and/or go to the nearest emergency room for evaluation. Discharge Disposition: HOME SELF-CARE
== END 2019-12-14 15:20 | disposition home or self-care (01) | DRG 885 ==
LOC: EC 09:11 → 3MHU 13:47
PROVIDERS: ADMIT Psychiatry & Neurology Psychiatry; ATTEND Psychiatry & Neurology Psychiatry
DX: F29 Unspecified psychosis not due to a substance or known physiological condition (principal); R45.851 Suicidal ideations; F41.9 Anxiety disorder, unspecified; F60.0 Paranoid personality disorder; K21.9 Gastro-esophageal reflux disease without esophagitis; Z65.3 Problems related to other legal circumstances; Z79.899 Other long term (current) drug therapy; Z91.5 Personal history of self-harm; F17.210 Nicotine dependence, cigarettes, uncomplicated; Z56.0 Unemployment, unspecified; L70.9 Acne, unspecified; Z91.19 Patient's noncompliance with other medical treatment and regimen; T43.96XA Underdosing of unspecified psychotropic drug, initial encounter; Z91.128 Patient's intentional underdosing of medication regimen for other reason; R00.0 Tachycardia, unspecified
CPT/HCPCS: 80053; 80061; 82075; 83036; 84443; 85025; 93005; 99284

== ENCOUNTER 2020-04-15 11:23 | Inpatient (IN) | payer MEDICAID, OTHER ==
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
[2020-04-15] MEDS ORDERED: MAGNESIUM HYDROXIDE 2,400 MG/10 ML CUP PO PRN (13:23)
[2020-04-15] MEDS ORDERED: MAG HYDROX/AL HYDROX/SIMETH 30 ML CUP PO PRN (13:23)
[2020-04-15] MEDS ORDERED: ACETAMINOPHEN TAB 325 MG TAB PO PRN (13:23)
[2020-04-15] MEDS ORDERED: hydrOXYzine PAMOATE 25 MG CAP PO PRN (13:28)
[2020-04-15] MEDS: ZIPRASIDONE 20 MG VIAL IM PRN (14:53)
[2020-04-15] MEDS: LORazepam 2 MG/ML INJ IM PRN (14:53)
[2020-04-15] MEDS ORDERED: LORazepam 2 MG/ML INJ IM SCH (16:00)
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
[2020-04-16] MEDS: ZIPRASIDONE 20 MG VIAL IM PRN ×3 (02:20→21:58)
[2020-04-16] MEDS: LORazepam 2 MG/ML INJ IM PRN ×3 (02:20→21:58)
[2020-04-16] MEDS: ARIPiprazole 2 MG TAB PO SCH ×2 (02:30→08:32)
[2020-04-16] MEDS: PANTOPRAZOLE 40 MG TABLET PO SCH (08:32)
[2020-04-16] MEDS ORDERED: WATER FOR INJECTION, STERILE 10 ML IV ONE (11:55)
[2020-04-16] MEDS ORDERED: ZIPRASIDONE 20 MG VIAL IM ONE (11:55)
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
[2020-04-17] MEDS: PANTOPRAZOLE 40 MG TABLET PO SCH (09:39)
--- NOTE | 2020-04-17 13:40 | P.PN ---
Progress Note - Text Progress Note Date: 04/17/20 Interval history: Patient was seen in [facility] [place]. Patient was found in the dining room. He is not agreeable to meeting with me today. Mental status exam: Patient was found in the dining room. He is not agreeable to meeting with me today. He did not display any agitation. Plan: Continue current treatment regimen. Continue to monitor his ongoing status and monitor his response to treatment. Continue to monitor for any medication side effects. He is on Geodon and Ativan on a when necessary basis.
[2020-04-18] MEDS: PANTOPRAZOLE 40 MG TABLET PO SCH (08:44)
--- NOTE | 2020-04-18 12:07 | P.PN ---
Progress Note - Text Progress Note Date: 04/18/20 Clinical Problems: Schizophrenia multiple episodes currently in acute phase, rule out schizoaffective disorder, rule out substance-induced psychotic disorder Interim history: I reviewed the medical record, interviewed the patient and discuss his treatment and treatment plan during team meeting. He has a 19-year-old single male known to the psychiatric unit from prior admissions. He was admitted involuntarily and his stepfather completed the Petition. He was last discharged from unit in November 2019 with the diagnosis of psychosis. His discharge medications include risperidone 6 mg per day divided doses as well as Vistaril 25 mg twice a day when necessary. His only concern was discharge. He alleged came to the hospital voluntarily and wish to be discharged today. I reviewed his chart explained that he came involuntary and we are waiting on the date of the probate hearing. He alleged that he has been compliant with medication and denied use of other drugs other than marijuana. The community mental health liaison reported that he did not keep any of his follow-up appointments suggesting that he did not continue with this antipsychotic after he left the hospital. Mental status exam: He presented as a tall and groomed young male who was pleasant on approach. He made eye contact and appeared to attend to the interview. He had no distinguishing features or prominent physical abnormalities. He had a distressed facial expression. He showed no abnormality of psychomotor activity. His speech was spontaneous with normal rate and rhythm. His affect was anxious. He did not express suicidal ideation or wishes. He denied homicidal ideation. He denied feeling hopeless, helpless or worthless. He was guarded, paranoid and suspicious but did not express a clear paranoid ideation or delusion. His thinking was concrete and his associations were not fully coherent and logical. Assessment: He has history of a psychotic disorder most likely a schizophrenia or schizoaffective disorder. He presented to unit involuntarily with recurrence of psychosis most likely as result of noncompliance with treatment. His UDS was also positive for marijuana. Plan: Continue inpatient hospitalization. Safety precautions. Awaiting date of the probate hearing for involuntary hospitalization. Restart risperidone 3 mg twice a day and transition to Risperdal Consta after the involuntary treatment order. Encourage participation in therapeutic groups and activities. Evaluate clinical status response to treatment daily basis.
[2020-04-18] MEDS: ZIPRASIDONE 20 MG VIAL IM PRN (17:01)
[2020-04-18] MEDS: LORazepam 2 MG/ML INJ IM PRN (17:02)
[2020-04-19] MEDS: risperiDONE 1 MG TAB PO SCH ×4 (02:59→20:56)
[2020-04-19] MEDS: PANTOPRAZOLE 40 MG TABLET PO SCH ×2 (08:41→09:28)
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
[2020-04-20] MEDS: risperiDONE 1 MG TAB PO SCH ×2 (08:39→20:47)
[2020-04-20] MEDS: PANTOPRAZOLE 40 MG TABLET PO SCH (08:39)
[2020-04-20] MEDS: LORazepam 1 MG TAB PO PRN ×2 (08:41→20:47)
--- NOTE | 2020-04-20 13:55 | P.PN ---
Progress Note - Text Progress Note Date: 04/20/20 Clinical Problems: Schizoaffective disorder multiple episodes currently in acute phase, rule out schizophrenia, rule out bipolar disorder current episode manic with psychotic features rule out substance-induced psychotic disorder Interim history: I reviewed the medical record, interviewed the patient and discussed his treatment and treatment plan during team meeting. He was less irritable and intrusive. He is now compliant with risperidone 3 mg by mouth twice a day. He is had no confrontations or threats towards patients or staff in the last 24 hours. He met with his finance attorney and deferred the probate hearing. His only concern was discharge. He denied all other problems or concerns. Mental status exam: He presented as a tall and groomed young male who was pleasant on approach. He made eye contact and appeared to attend to the interview. He had a angry facial expression. He was not restless or agitated. His speech was spontaneous with normal rate and rhythm. His affect was angry, irritable and condescending. He did not express suicidal ideation or wishes. He denied homicidal ideation. He denied feeling hopeless, helpless or worthless. He was guarded but did not express a clear paranoid ideation or delusion. His thinking was concrete and his associations were not fully coherent and logical. Assessment: He is less irritable, impulsive, threatening, agitated and angry. Plan: Continue inpatient hospitalization. Safety precautions. His probate hearing is scheduled for 04/27/2020. Restart risperidone 3 mg twice a day. We'll begin Risperdal Consta tomorrow. If refuses the Risperdal Consta and we will submit a demand for the probate hearing. Encourage participation in therapeutic groups and activities. Evaluate clinical status response to treatment daily basis.
[2020-04-21] MEDS: risperiDONE 1 MG TAB PO SCH ×2 (08:44→19:47)
[2020-04-21] MEDS: LORazepam 0.5 MG TAB PO PRN ×2 (08:44→19:47)
[2020-04-21] MEDS: PANTOPRAZOLE 40 MG TABLET PO SCH (08:44)
--- NOTE | 2020-04-21 14:57 | P.PN ---
Progress Note - Text Progress Note Date: 04/21/20 Clinical Problems: Schizoaffective disorder multiple episodes currently in acute phase, rule out schizophrenia, rule out bipolar disorder current episode manic with psychotic features rule out substance-induced psychotic disorder Interim history: I reviewed the medical record, interviewed the patient and discussed his treatment and treatment plan during team meeting. He deferred the probate hearing yesterday. This morning he asked if he could be discharged. He became angry when I explained my plan is to transition from oral to Risperdal Consta. He initially refused but when I also explained that if she refused the injection we will proceed with the court hearing he consented and had the injection. Mental status exam: He presented as a tall and groomed young male who was pleasant on approach. He made eye contact and appeared to attend to the interview. He had a angry facial expression. He was not restless or agitated. His speech was spontaneous with normal rate and rhythm. His affect was angry, irritable and condescending. He did not express suicidal ideation or wishes. He denied homicidal ideation. He denied feeling hopeless, helpless or worthless. He was guarded but did not express a clear paranoid ideation or delusion. His thinking was concrete and his associations were not fully coherent and logical. Assessment: He has last angry and irritable than on admission and is only complying with treatment due to the court order. Plan: Continue inpatient hospitalization. Safety precautions. His probate hearing is scheduled for 04/27/2020. Continue risperidone 3 mg twice a day. Risperdal Consta 25 mg IM today than increased dose to 37.5 mg IM every 2 weeks. Encourage participation in therapeutic groups and activities. Evaluate clinical status response to treatment daily basis.
[2020-04-22] MEDS: risperiDONE 1 MG TAB PO SCH ×2 (08:49→20:46)
[2020-04-22] MEDS: PANTOPRAZOLE 40 MG TABLET PO SCH (08:49)
[2020-04-22] MEDS: LORazepam 0.5 MG TAB PO PRN ×2 (08:49→20:48)
--- NOTE | 2020-04-22 13:42 | P.PN ---
Progress Note - Text Progress Note Date: 04/22/20 Clinical Problems: Schizoaffective disorder multiple episodes currently in acute phase, rule out schizophrenia, rule out bipolar disorder current episode manic with psychotic features rule out substance-induced psychotic disorder Interim history: I reviewed the medical record, interviewed the patient and discussed his treatment and treatment plan during team meeting. His only concern was discharge and he posed several times asked me when he would be discharged. He is intermittently restless but had no recent issues regarding his behavior.The therapist reported that he was appropriate and attentive during group therapies yesterday and today. Mental status exam: He presented as a tall and groomed young male who was pleasant on approach. He made eye contact and appeared to attend to the interview. He had a angry facial expression. He was not restless or agitated. His speech was spontaneous with normal rate and rhythm. His affect was angry, irritable and condescending. He did not express suicidal ideation or wishes. He denied homicidal ideation. He denied feeling hopeless, helpless or worthless. He was guarded but did not express a clear paranoid ideation or delusion. His thinking was concrete and his associations were not fully coherent and logical. Assessment: He has last angry and irritable than on admission and is only complying with treatment due to the court order. Plan: Continue inpatient hospitalization. consider discharge early next week. Safety precautions. Continue risperidone 3 mg twice a day. Risperdal Consta 25 mg IM today than increased dose to 37.5 mg IM every 2 weeks. Encourage participation in therapeutic groups and activities. Evaluate clinical status response to treatment daily basis.
[2020-04-23] MEDS: LORazepam 0.5 MG TAB PO PRN ×2 (08:26→20:03)
[2020-04-23] MEDS: risperiDONE 1 MG TAB PO SCH ×2 (08:27→20:03)
[2020-04-23] MEDS: PANTOPRAZOLE 40 MG TABLET PO SCH (08:27)
--- NOTE | 2020-04-23 13:42 | P.PN ---
Progress Note - Text Interval history: The patient's found in the dining room he follows me to an interview room. He reports that his mood is good. He indicates he slept last night staff report he slept 6 hours. Appetite is stable. He has been compliant with his medication. He is looking forward to being discharged soon. He has been attending groups he is demonstrated no agitated behavior. Staff report that the patient's behavior has improved and he is been directable. Mental status exam: The patient is alert he is a male appearing his stated age hygiene grooming adequate he is dressed in hospital attire. Eye contact is good speech is fluent spontaneous nonpressured. He demonstrates no tangential thinking this associations or flight of ideas. He reports no suicidal or homicidal ideation intent or plan. He is endorsing no auditory or visual hallucinations or any specific delusions. There is no observed evidence of psychosis during our interaction this morning. He demonstrates no verbal or physical aggressiveness he demonstrates no involuntary repetitive movements. Affect is constricted he demonstrates a small range of reactivity. Plan: The patient is clinically improving. We will continue his current psychotropic medications. He appears that he is on track for a discharge early this coming week. He is encouraged to fully participate in the milieu. He has questions regarding placement and those were addressed.
[2020-04-24] MEDS: risperiDONE 1 MG TAB PO SCH ×2 (08:21→20:28)
[2020-04-24] MEDS: PANTOPRAZOLE 40 MG TABLET PO SCH (08:21)
--- NOTE | 2020-04-24 12:32 | P.PN ---
Progress Note - Text Interval history: The patient's found in his room he reluctantly follows me to an interview room. He indicates his mood is good. He would like to know when he is being discharged. Staff report no behavioral disturbances from the patient. He's been compliant with medication. He reports attending groups. He did sleep throughout the night appetite is stable. He provided the name for a friend who has informed social work that patient can stay with him. Mental status exam: The patient is alert he is dressed in his own clothing hy giene is adequate grooming spare. Eye contact is appropriate speech is fluent spontaneous nonpressured. He reports no hopelessness thinking no suicidal ideation intent or plan. He is endorsing no auditory or visual hallucinations or any specific delusions. At this time is demonstrating no objective evidence of psychosis. He is demonstrating no tangential thinking loose associations or flight of ideas. He does not appear hypomanic or manic during this session. Insight and judgment improving. He is fully oriented to person place and date. He demonstrates no verbal or physical aggressiveness. He demonstrates no involuntary repetitive movements. Plan: The patient will continue on his current psychotropic medication. We will monitor him for safety. He is encouraged to fully participate in the milieu. He appears to be clinically stabilizing.
[2020-04-24] MEDS: LORazepam 0.5 MG TAB PO PRN (20:29)
[2020-04-25 06:39] VITALS: BP 114/59; PULSE 98; RESP 16; TEMP 98.3
[2020-04-25] MEDS: PANTOPRAZOLE 40 MG TABLET PO SCH (08:18)
[2020-04-25] MEDS: risperiDONE 1 MG TAB PO SCH (08:18)
--- NOTE | 2020-04-25 12:18 | P.DS ---
Providers Date of admission: 04/15/20 13:21 Attending physician: Herson France MD Consults: 04/15/20 13:23 Consult Physician Routine Consulting Provider: Awilda Physician Consult Reason/Comments: medical management Do you want consulting provider notified?: Yes Primary care physician: Stated None - Discharge Diagnosis(es) (1) Schizoaffective disorder, bipolar type Current Visit: Yes Status: Chronic Priority: High (2) Poor compliance with medication Current Visit: Yes Status: Chronic Priority: High (3) Cannabis use disorder, mild, abuse Current Visit: Yes Status: Chronic Priority: Medium Hospital Course: HISTORY: He is a 19-year-old single male known to the psychiatric unit from prior admissions. He was last discharged from this service in November 2019 with the diagnosis of unspecified psychosis. This admission was involuntarily and his stepfather completed the petition indicating auditory hallucinations, suicidal ideation with plan and noncompliant with treatment. He is thinking and speech was markedly disorganized behaviors agitated, restless and impulsive. Overview of the [facility] court docket revealed he has 2 outstanding charges domestic violence. On 04/18/2020 the care of issued a bench work for violation of the conditional dietrich. This is his fourth admission to this psychiatric unit. He admits to noncompliance with medications. He has history of marijuana use. Unfortunately, she did not provide a urine sample for her UDS prior to this adm ission. HOSPITAL COURSE: We admitted him to the psychiatric unit involuntarily on this casualty underwriter. We provided a comprehensive biopsychosocial assessment. He met with his court appointed mortuary beautician and deferred the probate hearing. We restarted risperidone 3 mg by mouth twice a day. He agreed to start probate constant after we explained that otherwise we proceed with the probate hearing. We administered the first dose of constant 25 mg on 04/21/2020. He was compliant with oral risperidone., Is restless and irritable during initial stay history of hospitalization. He had minor conflicts with other patients. Once the became poorly compliant with the Risperdal the restlessness, impulsivity and agitation decreased. He participated in therapeutic groups and activities. The health social work professor confirmed his legal situation and the courts issued a "[place] hold". At time of discharge she presented as a thin casually groomed young male who was pleasant on approach. He made eye contact and attended the interview. He had no distinguishing features or prominent physical abnormalities. He had a blunted but bright facial expression. He was alert and oriented to person, place and time. He was not restless or agitated. His speech was spontaneous with normal rate, rhythm and volume. His affect was blunted but stable and appropriate. He denied suicidal ideation and wishes. He denied homicidal ideation. He denied feeling hopeless, helpless or worthless. He continues to ruminate about discharge but did not express ideas reference, paranoid ideation or delusions. His thinking was concrete but his associations were coherent, logical and goal directed. He denied hallucinations and did not appear to responding to internal stimuli. AFTERCARE: Continue risperidone 2 mg by mouth twice a day until the 2nd Risperdal Consta injection. His next injection of Risperdal Consta 25 mg is scheduled for 05/05/2020. He'll be discharged to the local authorities. Patient Condition at Discharge: Stable Plan - Discharge Summary New Discharge Prescriptions: New risperiDONE [RisperDAL] 3 mg PO BID #60 tab risperiDONE MICROSPHERES [RisperDAL CONSTA] 25 mg IM [id number] #1 syringe Continue Pantoprazole [Protonix] 40 mg PO AC-BRKFST 28 Days tablet. Discontinued risperiDONE [RisperDAL] 4 mg PO HS 28 Days tablet risperiDONE [RisperDAL] 2 mg PO DAILY 28 Days tab hydrOXYzine PAMOATE [Vistaril] 25 mg PO BID PRN 28 Days cap PRN Reason: Anxiety Discharge Medication List Pantoprazole [Protonix] 40 mg PO AC-BRKFST 28 Days tablet. 04/25/20 [Rx] risperiDONE MICROSPHERES [RisperDAL CONSTA] 25 mg IM [id number] #1 syringe 04/25/20 [Rx] risperiDONE [RisperDAL] 3 mg PO BID #60 tab 04/25/20 [Rx] Follow up Appointment(s)/Referral(s): [facility] [Outside] - 04/28/20 10:00 am (04-28-20 @ 10:00 with James Torres by phone) [facility] [NON-STAFF] - 1 Week Patient Instructions/Handouts: Depression (DC), Suicide Prevention (DC) Activity/Diet/Wound Care/Special Instructions: Activity and diet as tolerated. Avoid the use of street drugs and alcohol. Take all medications as prescribed. When you are in need of refills on your medications please contact your medical provider and/or outpatient psychiatrist to have this done. Please go to scheduled outpatient appointment for aftercare treatment. If symptoms return or become worse, call the crisis line at and/or go to the nearest emergency room for evaluation. Discharge Disposition: HOME SELF-CARE
== END 2020-04-25 12:09 | disposition home or self-care (01) | DRG 885 ==
LOC: EC 11:23 → 3MHU 13:21
PROVIDERS: ADMIT Psychiatry & Neurology Psychiatry; ATTEND Psychiatry & Neurology Psychiatry
DX: F25.0 Schizoaffective disorder, bipolar type (principal); F12.10 Cannabis abuse, uncomplicated; F17.200 Nicotine dependence, unspecified, uncomplicated; F41.9 Anxiety disorder, unspecified; F90.9 Attention-deficit hyperactivity disorder, unspecified type; Z91.14 Patient's other noncompliance with medication regimen; Z86.12 Personal history of poliomyelitis; Z91.19 Patient's noncompliance with other medical treatment and regimen; Z79.899 Other long term (current) drug therapy; Z98.890 Other specified postprocedural states
CPT/HCPCS: 82075; 99284

== ENCOUNTER 2020-07-22 22:51 | Inpatient (IN) | payer MEDICAID, OTHER ==
--- NOTE | 2020-07-22 23:35 | ED ---
Psych HPI - General Chief Complaint: Psychiatric Symptoms Stated Complaint: Mental Health Time Seen by Provider: 07/22/20 23:02 Source: patient Mode of arrival: ambulatory - History of Present Illness Initial Comments: Patient is a 19-year-old male with history of schizophrenia presenting to the emergency department for psychiatric evaluation. Patient states he was [facility] the the [facility] days ago. States he was taken his psychiatric medication while in [facility], however upon discharge, he was not given any medication. Patient states he has developed visual and auditory hallucinations. Denies any suicidal, homicidal thoughts or ideations. States he is not completely sure what medication he is taking. - Related Data Previous Rx's Medication Instructions Recorded Pantoprazole [Protonix] 40 mg PO AC-BRKFST 28 Days 04/25/20 tablet. risperiDONE MICROSPHERES 25 mg IM [id number] #1 syringe 04/25/20 [RisperDAL CONSTA] risperiDONE [RisperDAL] 3 mg PO BID #60 tab 04/25/20 Allergies Allergy/AdvReac Type Severity Reaction Status Date / Time No Known Allergies Allergy Verified 07/22/20 23:02 Review of Systems ROS Statement: Those systems with pertinent positive or pertinent negative responses have been documented in the HPI. ROS Other: All systems not noted in ROS Statement are negative. Past Medical History Past Medical History: No Reported History History of Any Multi-Drug Resistant Organisms: None Reported Past Surgical History: No Surgical Hx Reported Additional Past Surgical History / Comment(s): dog bite, plastic surgery to nose Past Anesthesia/Blood Transfusion Reactions: No Reported Reaction Past Psychological History: ADD/ADHD, Anxiety, Bipolar, Depression, Schizophrenia Smoking Status: Never smoker Past Alcohol Use History: Abuse, Occasional Past Drug Use History: Cocaine, Marijuana - Past Family History Mother Family Medical History: No Reported History Father Family Medical History: No Reported History General Exam Limitations: no limitations General appearance: alert, in no apparent distress Head exam: Present: atraumatic, normocephalic, normal inspection Eye exam: Present: normal appearance, PERRL, EOMI Pupils: Present: normal accommodation ENT exam: Present: normal exam, normal oropharynx, mucous membranes moist, TM's normal bilaterally, normal external ear exam Neck exam: Present: normal inspection, full ROM. Absent: tenderness Respiratory exam: Present: normal lung sounds bilaterally. Absent: respiratory distress, wheezes, rales Cardiovascular Exam: Present: regular rate, normal rhythm, normal heart sounds Extremities exam: Present: normal inspection, full ROM. Absent: tenderness, normal capillary refill Back exam: Present: normal inspection, full ROM. Absent: tenderness Neurological exam: Present: alert, oriented X3 Psychiatric exam: Present: normal affect, normal mood, other (Patient talking to himself.) Skin exam: Present: warm, dry, intact, normal color Course Vital Signs 07/22/20 22:59 Temperature 99.6 F Pulse Rate 100 Respiratory 20 Rate Blood Pressure 123/88 O2 Sat by Pulse 97 Oximetry Medical Decision Making - Medical Decision Making Patient is a 19-year-old male with history of schizophrenia presenting to the emergency department for psychiatric evaluation. On initial evaluation, patient is talking to himself with scattered thoughts. Supposedly he was not given his medication for the last 5 days since he was released from [facility]. His chart was reviewed, patient does take Risperdal 3 mg twice a day. Patient was given a single dose in the emergency department. Urine drug screen positive for marijuana. EPS evaluated patient and he will be admitted for further psychiatric management. Case discussed with physician - Lab Data Lab Results 07/22/20 Range/Units 23:40 Urine Opiates Screen Not Detected (NotDetected) Ur Oxycodone Screen Not Detected (NotDetected) Urine Methadone Screen Not Detected (NotDetected) Ur Propoxyphene Screen Not Detected (NotDetected) Ur Barbiturates Screen Not Detected (NotDetected) U Tricyclic Antidepress Not Detected (NotDetected) Ur Phencyclidine Scrn Not Detected (NotDetected) Ur Amphetamines Screen Not Detected (NotDetected) U Methamphetamines Scrn Not Detected (NotDetected) U Benzodiazepines Scrn Not Detected (NotDetected) Urine Cocaine Screen Not Detected (NotDetected) U Marijuana (THC) Screen Detected H (NotDetected) Disposition Clinical Impression: Visual hallucination, Auditory hallucinations Disposition: ADMITTED IP TO THIS HOSP Condition: Good Is patient prescribed a controlled substance at d/c from ED?: No Time of Disposition: 02:15
[2020-07-22 23:58] LABS: Amphetamine Screen,Urine Not Detected (NotDetected); Barbiturate Screen,Urine Not Detected (NotDetected); Benzodiazepines Screen,Urine Not Detected (NotDetected); Cocaine Screen,Urine Not Detected (NotDetected); Methadone Screen, Urine Not Detected (NotDetected); Opiate Screen,Urine Not Detected (NotDetected); Oxycodone Screen, Urine Not Detected (NotDetected); Phencyclidine Screen,Urine Not Detected (NotDetected); Tricyclic Antidepressant,Urine Not Detected (NotDetected); Urn Cannabinoid Scrn Detected (NotDetected)
[2020-07-23] MEDS ORDERED: risperiDONE 1 MG TAB PO STA (00:11)
[2020-07-23] MEDS ORDERED: MAG HYDROX/AL HYDROX/SIMETH 30 ML CUP PO PRN (02:43)
[2020-07-23] MEDS ORDERED: MAGNESIUM HYDROXIDE 2,400 MG/10 ML CUP PO PRN (02:43)
[2020-07-23] MEDS ORDERED: ACETAMINOPHEN TAB 325 MG TAB PO PRN (02:43)
[2020-07-23] MEDS ORDERED: LORazepam 2 MG/ML INJ IM PRN (02:46)
[2020-07-23 03:11] LABS: Appearance,Urine Clear (Clear); Bilirubin,Urine Negative (Negative); Blood,Urine Negative (Negative); Color,Urine Yellow; Glucose,Urine (UA) Negative (Negative); Ketones,Urine Negative (Negative); Leukocyte Esterase,Urine Negative (Negative); Nitrite,Urine Negative (Negative); PH, Urine 5.5 (5.0-8.0); Protein,Urine Negative (Negative); Specific Gravity,Urine 1.014 (1.001-1.035); Urobilinogen,Urine <2.0 mg/dL (<2.0)
[2020-07-23] MEDS: ZIPRASIDONE 20 MG VIAL IM PRN ×2 (04:04→14:29)
--- NOTE | 2020-07-23 04:28 | P.CONS ---
History of Present Illness - Reason for Consult Consult date: 07/23/20 - History of Present Illness The patient is a 19-year-old male with a PMH of schizophrenia, anxiety, bipolar, and depression who presented to the ED with complaints of auditory and visual hallucinations. He was admitted to the mental health unit where he was seen and evaluated. At time of evaluation, the patient was actively psychotic with flight of ideas and pressured speech. He reported that he has been getting fru strated with the "whole system since it is corrupt". He also noted that he is upset with his family since they're not helpful. He denied any homicidal or suicidal ideation. He denied any additional complaints. No chest pain, shortness of breath, fever, chills, cough, nausea, vomiting. Denied abdominal pain, or diarrhea. Endorsed marijuana use but denied any additional drug use. Review of Systems Pertinent positives and negatives as discussed in HPI, a complete review of systems was performed and all other systems are negative. Past Medical History Past Medical History: No Reported History History of Any Multi-Drug Resistant Organisms: None Reported Past Surgical History: No Surgical Hx Reported Additional Past Surgical History / Comment(s): dog bite, plastic surgery to nose Past Anesthesia/Blood Transfusion Reactions: No Reported Reaction Past Psychological History: ADD/ADHD, Anxiety, Bipolar, Depression, Schizophrenia Smoking Status: Current every day smoker Past Alcohol Use History: Abuse, Occasional Additional Past Alcohol Use History / Comment(s): Pt. states when he drinks it's usually a 12 pk of beer occasionally. Past Drug Use History: Cocaine, Marijuana - Past Family History Mother Family Medical History: No Reported History Father Family Medical History: No Reported History Medications and Allergies Home Medications Medication Instructions Recorded Confirmed Type Pantoprazole [Protonix] 40 mg PO [id number] 28 Days 04/25/20 07/23/20 Rx tablet. risperiDONE MICROSPHERES 25 mg IM [id number] #1 syringe 04/25/20 07/23/20 Rx [RisperDAL CONSTA] risperiDONE [RisperDAL] 3 mg PO BID #60 tab 04/25/20 07/23/20 Rx Allergies Allergy/AdvReac Type Severity Reaction Status Date / Time No Known Allergies Allergy Verified 07/23/20 02:51 Physical Exam Vitals: Vital Signs Temp Pulse Pulse Resp BP BP Pulse Ox 07/23/20 03:05 98.0 F 111 H 15 144/87 96 07/22/20 22:59 99.6 F 100 20 123/88 97 Intake and Output 07/22/20 07/22/20 07/23/20 14:59 22:59 06:59 Other: Weight 68.039 kg 69.91 kg \\General: non toxic, no distress, appears at stated age, normal weight Derm: no unusual rashes/lesions no unusual ecchymoses, warm, dry Head: atraumatic, normocephalic, symmetric Eyes: EOMI, no lid lag, anicteric sclera, pupils equal round reactive to light ENT: Nose and ears atraumatic, no thrush, no pharyngeal erythema Neck: No thyromegaly, no cervical lymphadenopathy, trachea midline, supple Mouth: no lip lesion, mucus membranes moist Cardiovascular: S1S2 reg, no murmur, positive posterior tibial pulse bilateral, no edema, capillary refill less than 2 seconds Lungs: CTA bilateral, no rhonchi, no rales , no accessory muscle use Abdominal: soft, nontender to palpation, no guarding, no appreciable organomegaly, normal bowel sounds Ext: no gross muscle atrophy, muscle strength 5 out of 5 in all 4 extremities grossly, no contractures, Neuro: CN II-XI grossly intact, light touch intact all 4 extremities, finger to nose within normal limits, Psych: Alert, oriented, pressured speech, flight of ideas with tangentiality Results Labs: Abnormal Lab Results - Last 24 Hours (Table) 07/22/20 Range/Units 23:40 U Marijuana (THC) Screen Detected H (NotDetected) Assessment and Plan Plan: Marijuana abuse -Advised on importance of cessation Tobacco abuse -Nicotine patch as needed Psychosis -As per psychiatry Thank you for allowing us to participate in the care of this patient. We will follow peripherally. Do not hesitate to contact us with questions. Someone can be reached from the [facility] hospitalist group at all hours of the day at [phone].
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
[2020-07-23 09:13] LABS: ALT 11 U/L (4-49); AST 28 U/L (17-59); African American GFR (CKD) >90 (>60 ml/min/1.73 sqM); Albumin 4.4 g/dL (3.5-5.0); Alkaline Phosphatase 61 U/L (38-126); Anion Gap 8 mmol/L; Bilirubin, Delta 0.1 mg/dL (0.0-0.2); Bilirubin,Unconjugated 1.1 mg/dL (0.0-1.1); Blood Urea Nitrogen 10 mg/dL (9-20); Calcium 9.3 mg/dL (8.4-10.2); Carbon Dioxide 26 mmol/L (22-30); Chloride 106 mmol/L (98-107); Cholesterol 145 mg/dL (<200); Glucose 92 mg/dL (74-99); HDL Cholesterol 28 mg/dL (40-60); LDL Cholesterol,Calculated 92 mg/dL (0-99); Non-African American GFR(CKD) >90 (>60 ml/min/1.73 sqM); Sodium 140 mmol/L (137-145); Total Bilirubin 1.2 mg/dL (0.2-1.3); Total Protein 6.7 g/dL (6.3-8.2); Triglycerides 123 mg/dL (<150)
[2020-07-23] MEDS: NICOTINE 7MG/24HR PATCH TRANSDERM SCH (09:30)
[2020-07-23 09:37] LABS: Basophils # (A) 0.1 k/uL (0-0.2); Basophils % (A) 1 %; Eosinophils # (A) 0.1 k/uL (0-0.7); Eosinophils % (A) 1 %; HCT 43.5 % (39.0-53.0); HGB 15.1 gm/dL (13.0-17.5); Lymphocytes # (A) 3.3 k/uL (1.0-4.8); Lymphocytes % (A) 46 %; MCH 30.5 pg (25.0-35.0); MCHC 34.8 g/dL (31.0-37.0); MCV 87.7 fL (80.0-100.0); Monocytes # (A) 0.5 k/uL (0-1.0); Monocytes % (A) 7 %; Neutrophils # (A) 3.1 k/uL (1.3-7.7); Neutrophils % (A) 42 %; Platelet Count 229 k/uL (150-450); RBC 4.96 m/uL (4.30-5.90); RDW 13.2 % (11.5-15.5); WBC 7.3 k/uL (4.0-11.0)
[2020-07-23] MEDS ORDERED: OLANZapine 5 MG TAB PO ONE (12:36)
[2020-07-23] MEDS: LORazepam 1 MG TAB PO PRN ×2 (14:19→22:34)
[2020-07-23 19:09] LABS: Hemoglobin A1C 5.1 % (4.0-6.0)
[2020-07-23] MEDS ORDERED: OLANZapine 10 MG TAB PO SCH (21:00)
[2020-07-24] MEDS ORDERED: WATER FOR INJECTION, STERILE 10 ML IV ONE ×2 (08:51→14:31)
[2020-07-24] MEDS ORDERED: ZIPRASIDONE 20 MG VIAL IM ONE ×2 (08:51→14:31)
[2020-07-24] MEDS: NICOTINE 7MG/24HR PATCH TRANSDERM SCH (09:21)
--- NOTE | 2020-07-24 10:59 | P.PN ---
Subjective Progress Note Date: 07/24/20 Principal diagnosis: Diagnosis unspecified psychotic disorder Subjective: "The system is trying to get into my fucking head through the medication. They are trying to screw around with me and I have to stop them. I had to punch the picture or no one would ever have taken care of it." Objective: The patient sits with his arms crossed and angry look on his face. He asked questions and when you try to answer he immediately starts talking over the top of your answer. Vital signs temperature is 90.8 heart rate 111 respiration 15 blood pressure 114/87 O2 sat 96.( racing heart probably due to psychotic agitation) Labs: Hematology was normal general chemistry normal urinalysis normal toxicology had some marijuana Groups patient is not attending most of the groups when he does he needs multiple verbal prompts and redirection to participate he needed to but not his gown to be appropriate was bothering other peers and had to be asked to leave his thoughts are disorganized with flight of ideas garbled illogical speech rapid pressured speech Staff report is that he is paranoid and grandiose racing appears to be responding to internal stimuli no insight course he denies any suicidal or homicidal thoughts but always insists that he is innocent as the other people that have a problem Assessment still fairly unstable and needs to be in the hospital for his safety and the safety of others and to adjust medications Plan: Increase Zyprexa to 15 Objective - Vital Signs Vital signs: Vital Signs Temp 98.0 F 07/23/20 03:05 Pulse 111 H 07/23/20 03:05 Resp 15 07/23/20 03:05 BP 144/87 07/23/20 03:05 Pulse Ox 96 07/23/20 03:05 - Labs CBC & Chem 7: 07/23/20 08:25 07/23/20 08:25
[2020-07-24] MEDS: ZIPRASIDONE 20 MG VIAL IM PRN (14:48)
[2020-07-24] MEDS: LORazepam 1 MG TAB PO PRN (14:50)
[2020-07-24] MEDS: OLANZapine 7.5 MG TAB PO SCH (20:14)
[2020-07-25] MEDS: LORazepam 1 MG TAB PO PRN ×2 (04:01→22:09)
[2020-07-25] MEDS: NICOTINE 7MG/24HR PATCH TRANSDERM SCH (08:42)
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
[2020-07-25] MEDS: OLANZapine 7.5 MG TAB PO SCH (21:02)
[2020-07-26 07:07] VITALS: BP 110/63; PULSE 73; RESP 14; TEMP 97.7
[2020-07-26] MEDS: NICOTINE 7MG/24HR PATCH TRANSDERM SCH (09:05)
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
== END 2020-07-26 13:49 | disposition home or self-care (01) | DRG 885 ==
LOC: EC 22:51 → 3MHU 07-23 02:40
PROVIDERS: ADMIT Psychiatry & Neurology Psychiatry; ATTEND Psychiatry & Neurology Psychiatry
DX: F25.9 Schizoaffective disorder, unspecified (principal); F12.10 Cannabis abuse, uncomplicated; F17.210 Nicotine dependence, cigarettes, uncomplicated; F31.9 Bipolar disorder, unspecified; G47.00 Insomnia, unspecified; F41.9 Anxiety disorder, unspecified; F90.9 Attention-deficit hyperactivity disorder, unspecified type; Z79.899 Other long term (current) drug therapy; Z91.19 Patient's noncompliance with other medical treatment and regimen; Z98.890 Other specified postprocedural states
CPT/HCPCS: 80053; 80061; 80306; 81003; 82075; 82248; 83036; 84443; 85025; 99285

== ENCOUNTER 2020-07-30 16:09 | Emergency (ER) | payer OTHER ==
--- NOTE | 2020-07-30 16:38 | ED ---
General Adult HPI - General Chief complaint: Psychiatric Symptoms Stated complaint: mental health Time Seen by Provider: 07/30/20 16:21 Source: patient Mode of arrival: ambulatory Limitations: no limitations - History of Present Illness Initial comments: Dictation was produced using [employer] dictation software. please excuse any grammatical, word or spelling errors. This patient was cared for during a federal and state declared state of emergency secondary to Covid 19 Chief Complaint: Patient is a 19-year-old male he was brought here from here in house for admission to 3 . History of Present Illness: Is a 19-year-old male he is a terrible historian. He states he was brought here because somebody at [facility] where he resides asked him if he wanted to be admitted to inpatient psychiatry. Patient has any suicidal or homicidal ideation. He denies any visual auditory hallucinations. Patient is also here for the food. Patient allegedly was just admitted and discharged from inpatient psychiatry. Patient has no medical complaints. The ROS documented in this emergency department record has been reviewed and confirmed by me. Those systems with pertinent positive or negative responses have been documented in the HPI. All other systems are other negative and/or noncontributory. PHYSICAL EXAM: General Impression: Alert and oriented x3, not in acute distress HEENT: Normocephalic atraumatic, extra-ocular movements intact, pupils equal and reactive to light bilaterally, mucous membranes moist. Cardiovascular: Heart regular rate and rhythm Chest: Able to complete full sentences, no retractions, no tachypnea Abdomen: abdomen soft, non-tender, non-distended, no organomegaly Musculoskeletal: Pulses present and equal in all extremities, no peripheral edema Motor: no focal deficits noted Neurological: CN II-XII grossly intact, no focal motor or sensory deficits noted Skin: Intact with no visualized rashes Psych: Bizarre behavior, flat affect ED course: 19-year-old male brought to the emergency department for psychiatric evaluation. Vital signs upon arrival are within acceptable limits. Chart review shows that patient was just admitted to inpatient psychiatry for psychosis. More history was obtained from Mr. López. Was an employee at [facility]. He reports that patient has been having abnormal behavior and psychotic thinking. This reports that patient has been very aggressive with other members in the [facility]. Patient evaluated by EPS. EPS evaluated patient and noted that patient is supposedly incarcerated. EPS recommends discharge back to [facility]. Law enforcement will arrive there and take patient to [facility] - Related Data Previous Rx's Medication Instructions Recorded Acetaminophen Tab [Tylenol] 650 mg PO Q4HR PRN tab 07/26/20 Nicotine 7Mg/24Hr Patch [Habitrol] 1 patch TRANSDERM DAILY #14 patch 07/26/20 OLANZapine [ZyPREXA] 15 mg PO HS 30 Days tab 07/26/20 Allergies Allergy/AdvReac Type Severity Reaction Status Date / Time No Known Allergies Allergy Verified 07/30/20 16:17 Review of Systems ROS Statement: Those systems with pertinent positive or pertinent negative responses have been documented in the HPI. ROS Other: All systems not noted in ROS Statement are negative. Past Medical History Past Medical History: No Reported History History of Any Multi-Drug Resistant Organisms: None Reported Past Surgical History: No Surgical Hx Reported Additional Past Surgical History / Comment(s): dog bite, plastic surgery to nose Past Anesthesia/Blood Transfusion Reactions: No Reported Reaction Past Psychological History: ADD/ADHD, Anxiety, Bipolar, Depression, Schizophrenia Smoking Status: Current every day smoker Past Alcohol Use History: Abuse, Occasional Past Drug Use History: Cocaine, Marijuana - Past Family History Mother Family Medical History: No Reported History Father Family Medical History: No Reported History General Exam Limitations: no limitations Course Vital Signs 07/30/20 16:15 Temperature 97.9 F Pulse Rate 93 Respiratory 20 Rate Blood Pressure 136/79 O2 Sat by Pulse 97 Oximetry Disposition Clinical Impression: Evaluation by psychiatric service required Disposition: HOME SELF-CARE Condition: Good Instructions (If sedation given, give patient instructions): Medical Clearance for Psychiatric Care (ED) Is patient prescribed a controlled substance at d/c from ED?: No Referrals: [facility] [Primary Care Provider] - 1-2 days Time of Disposition: 19:13
[2020-07-30 19:22] VITALS: BP 139/70; PULSE 81; RESP 16; TEMP 98.1
== END 2020-07-30 19:23 | disposition home or self-care (01) ==
LOC: EC 16:09
DX: F29 Unspecified psychosis not due to a substance or known physiological condition (principal); F17.200 Nicotine dependence, unspecified, uncomplicated
CPT/HCPCS: 82075; 99284

== ENCOUNTER 2020-07-31 09:30 | Emergency (ER) | payer OTHER ==
[2020-07-31 09:36] VITALS: BP 127/67; PULSE 114; RESP 18; TEMP 97.8
--- NOTE | 2020-07-31 10:10 | ED ---
General Adult HPI - General Chief complaint: Psychiatric Symptoms Stated complaint: EPS eval Time Seen by Provider: 07/31/20 09:30 Source: patient, RN notes reviewed, old records reviewed Mode of arrival: ambulatory Limitations: no limitations - History of Present Illness Initial comments: This is a 19-year-old male presents emergency Department stating his thinking of suicide but doesn't have a plan. Patient also made statements about thinking he was abducted by aliens. Patient states she doesn't how he got here he doesn't know where he lives and at points she doesn't want to talk to him as soon as I try to leave the room he then begins to talk it appears to me that the patient is not being truthful - Related Data Previous Rx's Medication Instructions Recorded Acetaminophen Tab [Tylenol] 650 mg PO Q4HR PRN tab 07/26/20 Nicotine 7Mg/24Hr Patch [Habitrol] 1 patch TRANSDERM DAILY #14 patch 07/26/20 OLANZapine [ZyPREXA] 15 mg PO HS 30 Days tab 07/26/20 Allergies Allergy/AdvReac Type Severity Reaction Status Date / Time No Known Allergies Allergy Verified 07/31/20 09:36 Review of Systems ROS Statement: Those systems with pertinent positive or pertinent negative responses have been documented in the HPI. ROS Other: All systems not noted in ROS Statement are negative. Past Medical History Past Medical History: No Reported History History of Any Multi-Drug Resistant Organisms: None Reported Past Surgical History: No Surgical Hx Reported Additional Past Surgical History / Comment(s): dog bite, plastic surgery to nose Past Anesthesia/Blood Transfusion Reactions: No Reported Reaction Past Psychological History: ADD/ADHD, Anxiety, Bipolar, Depression, Schizophrenia Smoking Status: Current every day smoker Past Alcohol Use History: Abuse, Occasional Past Drug Use History: Cocaine, Marijuana - Past Family History Mother Family Medical History: No Reported History Father Family Medical History: No Reported History General Exam - General Exam Comments Initial Comments: GENERAL: Patient is well-developed and well-nourished. Patient is nontoxic and well- hydrated and is in no acute distress. ENT: Neck is soft and supple. No significant lymphadenopathy is noted. Oropharynx i s clear. Moist mucous membranes. Neck has full range of motion without eliciting any pain. EYES: The sclera were anicteric and conjunctiva were pink and moist. Extraocular movements were intact and pupils were equal round and reactive to light. Eyelids were unremarkable. PULMONARY: Unlabored respirations. Good breath sounds bilaterally. No audible rales rhonchi or wheezing was noted. CARDIOVASCULAR: There is a regular rate and rhythm without any murmurs gallops or rubs. ABDOMEN: Soft and nontender with normal bowel sounds. SKIN: Skin is clear with no lesions or rashes and otherwise unremarkable. NEUROLOGIC: Patient is alert and oriented x3. Cranial nerves II through XII are grossly intact. Motor and sensory are also intact. Normal speech, volume and content. Symmetrical smile. MUSCULOSKELETAL: Normal extremities with adequate strength and full range of motion. LYMPHATICS: No significant lymphadenopathy is noted PSYCHIATRIC: Patient states he suicidal. Limitations: no limitations Course Vital Signs 07/31/20 09:32 Temperature 97.8 F Pulse Rate 114 H Respiratory 18 Rate Blood Pressure 127/67 O2 Sat by Pulse 98 Oximetry Medical Decision Making - Medical Decision Making EPS evaluated the patient and they agreed that the patient be discharged home however he has a warm tub for the rest of the police will be stopping by to pick the patient up. - Lab Data Lab Results 07/31/20 Range/Units 09:50 Urine Opiates Screen Not Detected (NotDetected) Ur Oxycodone Screen Not Detected (NotDetected) Urine Methadone Screen Not Detected (NotDetected) Ur Propoxyphene Screen Not Detected (NotDetected) Ur Barbiturates Screen Not Detected (NotDetected) U Tricyclic Antidepress Not Detected (NotDetected) Ur Phencyclidine Scrn Not Detected (NotDetected) Ur Amphetamines Screen Not Detected (NotDetected) U Methamphetamines Scrn Not Detected (NotDetected) U Benzodiazepines Scrn Not Detected (NotDetected) Urine Cocaine Screen Not Detected (NotDetected) U Marijuana (THC) Screen Detected H (NotDetected) Disposition Clinical Impression: Antisocial behavior Disposition: HOME SELF-CARE Instructions (If sedation given, give patient instructions): Borderline Personality Disorder (DC) Is patient prescribed a controlled substance at d/c from ED?: No Referrals: [facility] [Primary Care Provider] - 1-2 days Time of Disposition: 12:33
[2020-07-31 10:12] LABS: Amphetamine Screen,Urine Not Detected (NotDetected); Barbiturate Screen,Urine Not Detected (NotDetected); Benzodiazepines Screen,Urine Not Detected (NotDetected); Cocaine Screen,Urine Not Detected (NotDetected); Methadone Screen, Urine Not Detected (NotDetected); Opiate Screen,Urine Not Detected (NotDetected); Oxycodone Screen, Urine Not Detected (NotDetected); Phencyclidine Screen,Urine Not Detected (NotDetected); Tricyclic Antidepressant,Urine Not Detected (NotDetected); Urn Cannabinoid Scrn Detected (NotDetected)
== END 2020-07-31 13:15 | disposition home or self-care (01) ==
LOC: EC 09:30
DX: Z72.811 Adult antisocial behavior (principal); R45.851 Suicidal ideations; F17.200 Nicotine dependence, unspecified, uncomplicated
CPT/HCPCS: 80306; 82075; 99285

== ENCOUNTER 2020-08-30 20:51 | Inpatient (IN) | payer MEDICAID, OTHER ==
--- NOTE | 2020-08-30 21:26 | ED ---
Psych HPI <Olegario Forrest - Last Filed: 08/31/20 00:19> - General Source: patient, police Mode of arrival: ambulatory <Galina Michael - Last Filed: 08/31/20 14:13> - General Chief Complaint: Psychiatric Symptoms Stated Complaint: Mental Health Time Seen by Provider: 08/30/20 21:08 - History of Present Illness Initial Comments: Patient is a 19-year-old male presenting to the emergency department with police escort for psychiatric evaluation. Patient is being petitioned by his family. He doesn't history of paranoid schizophrenia and has not been taking his medications. Patient was found walking down the road wrapped in a blanket stating he was asleep outside. The police escorted patient into the hospital for examination. He denies any suicidal or homicidal thoughts. He states he simply "does not want take his meds anymore." He denies any recent fevers, he has no pain. There are no further complaints. (Galina Michael) - Related Data Home Medications Medication Instructions Recorded Confirmed LORazepam [Ativan] 0.5 mg PO BID 08/30/20 08/30/20 Pantoprazole [Protonix] 40 mg PO QAM 08/30/20 08/30/20 risperiDONE 3 mg PO BID 08/30/20 08/30/20 risperiDONE MICROSPHERES 25 mg IM Q14D 08/30/20 08/30/20 [RisperDAL CONSTA] traZODone HCL [Desyrel] 50 mg PO HS 08/30/20 08/30/20 Previous Rx's Medication Instructions Recorded Acetaminophen Tab [Tylenol] 650 mg PO Q4HR PRN tab 07/26/20 Nicotine 7Mg/24Hr Patch [Habitrol] 1 patch TRANSDERM DAILY #14 patch 07/26/20 OLANZapine [ZyPREXA] 15 mg PO HS 30 Days tab 07/26/20 Allergies Allergy/AdvReac Type Severity Reaction Status Date / Time No Known Allergies Allergy Verified 08/30/20 22:24 Review of Systems ROS Other: All systems not noted in ROS Statement are negative. <Olegario Forrest - Last Filed: 08/31/20 00:19> ROS Other: All systems not noted in ROS Statement are negative. <Galina Michael - Last Filed: 08/31/20 14:13> ROS Statement: Those systems with pertinent positive or pertinent negative responses have been documented in the HPI. Past Medical History Past Medical History: No Reported History History of Any Multi-Drug Resistant Organisms: None Reported Past Surgical History: No Surgical Hx Reported Additional Past Surgical History / Comment(s): dog bite, plastic surgery to nose Past Anesthesia/Blood Transfusion Reactions: No Reported Reaction Past Psychological History: ADD/ADHD, Anxiety, Bipolar, Depression, Schizophrenia Smoking Status: Current every day smoker Past Alcohol Use History: Abuse, Occasional Past Drug Use History: Cocaine, Marijuana - Past Family History Mother Family Medical History: No Reported History Father Family Medical History: No Reported History <Galina Michael - Last Filed: 08/31/20 14:13> General Exam Limitations: no limitations <Galina Michael - Last Filed: 08/31/20 14:13> - General Exam Comments Initial Comments: GENERAL: Patient is well-developed and well-nourished. Patient is nontoxic and in no acute distress. HEAD: Atraumatic, normocephalic. EYES: Pupils equal round and reactive to light, extraocular movements intact, sclera anicteric, conjunctiva are normal. Eyelids were unremarkable. ENT: TMs normal, nares patent, oropharynx clear without exudates. Moist mucous membranes. NECK: Normal range of motion, supple without lymphadenopathy or JVD. LUNGS: Unlabored respirations. Breath sounds clear to auscultation bilaterally and equal. No wheezes rales or rhonchi. HEART: Regular rate and rhythm without murmurs, rubs or gallops. ABDOMEN: Soft, nontender, normoactive bowel sounds. No guarding, no rebound. No masses appreciated. : Deferred MUSCULOSKELETAL: Normal extremities with adequate strength and normal range of motion, no pitting or edema. No clubbing or cyanosis. NEUROLOGICAL: Patient is alert and oriented x 3. Motor and sensory are also intact. Symmetrical smile. Normal speech, normal gait. PSYCH: Normal mood, normal affect. SKIN: Warm, Dry, normal turgor, no rashes or lesions noted. (Galina Michael) Course Vital Signs 08/30/20 20:55 Temperature 98.4 F Pulse Rate 114 H Respiratory 18 Rate Blood Pressure 129/81 O2 Sat by Pulse 97 Oximetry Medical Decision Making <Olegario Forrest - Last Filed: 08/31/20 00:19> <Galina Michael - Last Filed: 08/31/20 14:13> - Medical Decision Making I saw the patient for purposes of completing the clinical certificate (Olegario Forrest) Patient is a 19-year-old male here for psychiatric evaluation, he is being petitioned by his family. He has history of paranoid schizophrenia, stopped taking his medications. Denies any suicidal or homicidal thoughts today. Patient was evaluated by EPS and patient will be admitted. (Galina Michael) - Lab Data Lab Results 08/30/20 Range/Units 21:44 Urine Opiates Screen Not Detected (NotDetected) Ur Oxycodone Screen Not Detected (NotDetected) Urine Methadone Screen Not Detected (NotDetected) Ur Propoxyphene Screen Not Detected (NotDetected) Ur Barbiturates Screen Not Detected (NotDetected) U Tricyclic Antidepress Not Detected (NotDetected) Ur Phencyclidine Scrn Not Detected (NotDetected) Ur Amphetamines Screen Not Detected (NotDetected) U Methamphetamines Scrn Not Detected (NotDetected) U Benzodiazepines Scrn Not Detected (NotDetected) Urine Cocaine Screen Not Detected (NotDetected) U Marijuana (THC) Screen Detected H (NotDetected) Disposition <Olegario Forrest - Last Filed: 08/31/20 00:19> <Galina Michael - Last Filed: 08/31/20 14:13> Clinical Impression: Schizoaffective disorder, bipolar type Disposition: TRANSFER TO PSYCH HOSP/UNIT Condition: Stable
[2020-08-30 22:06] LABS: Amphetamine Screen,Urine Not Detected (NotDetected); Barbiturate Screen,Urine Not Detected (NotDetected); Benzodiazepines Screen,Urine Not Detected (NotDetected); Cocaine Screen,Urine Not Detected (NotDetected); Methadone Screen, Urine Not Detected (NotDetected); Opiate Screen,Urine Not Detected (NotDetected); Oxycodone Screen, Urine Not Detected (NotDetected); Phencyclidine Screen,Urine Not Detected (NotDetected); Tricyclic Antidepressant,Urine Not Detected (NotDetected); Urn Cannabinoid Scrn Detected (NotDetected)
[2020-08-30] MEDS ORDERED: ZIPRASIDONE 20 MG VIAL IM STA (23:51)
[2020-08-30] MEDS ORDERED: LORazepam 2 MG/ML INJ IM STA (23:51)
[2020-08-31] MEDS ORDERED: ACETAMINOPHEN TAB 325 MG TAB PO PRN (00:20)
[2020-08-31] MEDS ORDERED: MAG HYDROX/AL HYDROX/SIMETH 30 ML CUP PO PRN (00:21)
[2020-08-31] MEDS ORDERED: ZIPRASIDONE 20 MG VIAL IM PRN (00:21)
[2020-08-31] MEDS ORDERED: MAGNESIUM HYDROXIDE 2,400 MG/10 ML CUP PO PRN (00:21)
[2020-08-31] MEDS ORDERED: LORazepam 0.5 MG TAB PO PRN (00:27)
[2020-08-31] MEDS ORDERED: LORazepam 2 MG/ML INJ IM PRN (00:32)
[2020-08-31] MEDS: traZODone HCL 50 MG TAB PO SCH ×2 (01:36→21:12)
--- NOTE | 2020-08-31 02:26 | P.PN ---
Progress Note - Text Progress Note Date: 08/30/20 patient medicated and sedated , inappropriate for evaluation at this time
[2020-08-31] MEDS: NICOTINE 7MG/24HR PATCH TRANSDERM SCH (08:57)
[2020-08-31] MEDS: PANTOPRAZOLE 40 MG TABLET PO SCH (08:57)
[2020-08-31] MEDS: risperiDONE 1 MG TAB PO SCH ×2 (08:58→21:12)
[2020-08-31] MEDS ORDERED: RISPERIDONE 3 MG PO SCH (09:00)
--- NOTE | 2020-08-31 11:59 | P.HP ---
Psychiatric H&P - . H&P Date: 08/31/20 History & Physical: IDENTIFYING DATA: He is a 19-year-old single male admitted to psychiatric unit involuntarily. His mother completed a Petition that read "refusal of medications, disoriented, hearing voices, hiding belongings, irrational thoughts and actions, aggressive, confused." HISTORY OF PRESENT ILLNESS: He was unable to explain the reason for this hospitalization he stated he was "minding my own business when the police came and told them they have to take me in for protective custody." He denied problems or concerns and denied the need for psychiatric hospitalizations. He is well known to psychiatric unit from prior hospitalizations. This is his fifth admission since May 2019. He was last discharged from the unit in June 2020 to the [facility]. His discharge discharge medications included Zyprexa 50 mg daily. Between his last admission and the current [facility] placed him at the [facility]. His mother told the [facility] nurse that he was in [facility]. He left the house to go to a Halloween libertarian on Saturday. After the libertarian he became more psychotic. He was discharged from [facility] on the day of admission. He took some of his personal belongings and buried them in a park. Then returned [facility] and took more items went back to Park and buried them as well. His mother is afraid of him (she has a PPO) and called the police as soon as she learned that he was discharged from the [facility]. He admits to stopping his medications while he was in [facility]. Apparently the psychiatrist that [facility] placed him on Risperdal Consta. He bragged about refusing to continue with the shots (" I don't need needles.") And then failing to take the prescribed oral medication. He denied feeling depressed or having thoughts of or suicide. He denied homicidal ideation. He alleged that the protective order was a result of a plea bargain and denied that he had threatened or assaulted his mother. He denied experiencing distress and anxiety. He denied obsessions or compulsions. He d enied experiencing auditory, visual or olfactory hallucinations, ideas reference, thought insertion, thought broadcasting or thought control. He denied use of drugs with the exception of marijuana. His breath alcohol level in the EC was negative and his urine drug screen was positive for cannabinoids. PAST PSYCHIATRIC HISTORY: He has long history of mental illness and mental health treatment beginning in childhood. He was initially treated with psychostimulants for purported ADHD and/or conduct disorder. In addition to the 5 admissions at this facility has been at other psychiatric hospitals in the community. His most recent diagnoses include unspecified psychotic disorder, schizoaffective disorder and cannabis use disorder. He is frequently noncompliant with treatment. PAST MEDICAL HISTORY: No major medical problems. ALLERGIES: NO KNOWN DRUG ALLERGIES SUBSTANCE USE HISTORY: He denied recent use of drugs with the exception of marijuana. He bragged about his use of marijuana and his plans to obtain a medical marijuana card to treat his mental condition. He has a history of alcohol use problems but no history of use of other drugs. FAMILY PSYCHIATRIC/SUBSTANCE USE HISTORY: Unknown LEGAL HISTORY: He has a history of legal problems beginning in adolescence. He was involved in the juvenile system. He is recently incarcerated for domestic violence. He has past charges of assault. SOCIAL HISTORY: He is raised by his mother and stepfather. He completed school only to the 10th grade. His history of suspensions but denied school expulsions. He lived with various family members due to his behavioral problems. He has had periods of homelessness. He has no income and currently is homeless. MENTAL STATUS EXAM: He presented as a thin tall casually groomed 19-year-old male who was pleasant on approach. He made eye contact and appeared to attend to the interview. Other than facial acne he had no distinguishing features or prominent physical modalities. He had a elated facial expression and was laughing during the interview. He was alert and oriented to person, place and time. He was not agitated or restless. His speech was spontaneous with increased rate and rhythm. His affect was elevated and at times inappropriate. He has been inappropriate on the unit where he is dominated groups and made sexually inappropriate comments. He denied suicidal ideation, wishes or homicidal ideation. Denied feeling hopeless, helpless or worthless. He ruminated about his family problems but did not express clear idea reference or paranoid ideation or delusions. His thinking was logical but perseverative and circumstantial. He didn't express clang associations. He denied hallucinations did not appear to be responding to internal stimuli. Global impression is average to below. Insight or understanding of his illness or need for treatment. STRENGTHS: Good physical health, engagement with community mental health. WEAKNESSES: Poor compliance with treatment, chronic and persistent behavioral and mental health problems, recurrent legal problems IMPRESSION: He is a 19-year-old single male with long history of behavioral and mental health problems beginning in childhood and affect is his ability to attend to and complete schooling, maintained gainful employment or maintaining consistent supportive interpersonal relationships. He is had multiple psychiatric hospitalizations as well as recurrent involvement with legal system. He presented to the unit involuntarily after having been discharged from a supportive housing program. He presents with signs and symptoms of luis. He house has behavior problems consistent with a long- standing personal disorder. PRINCIPLE DIAGNOSIS: Schizoaffective disorder bipolar type, cannabis use disorder moderate, rule out antisocial personal disorder RECOMMENDATION: Admitted to the psychiatric unit involuntarily. Petition probate Court for involuntary hospitalization. Restart risperidone 3 mg by mouth twice a day and transition to Risperdal Consta will receive an involuntary order. Social work to coordinate discharge and aftercare services. Consult medicine for initial physical exam and medical history. Obtain medical records from [facility]. Encourage participation in therapeutic groups and activities as appropriate. Evaluate clinical status response to treatment daily basis. Allergies Allergy/AdvReac Type Severity Reaction Status Date / Time No Known Allergies Allergy Verified 08/30/20 22:24 Vital Signs Temp 98 F 08/31/20 01:14 Pulse 83 08/31/20 01:14 Resp 16 08/31/20 01:14 BP 113/55 08/31/20 01:14 Pulse Ox 97 08/31/20 01:14 Intake & Output 08/30/20 08/31/20 08/31/20 18:59 06:59 18:59 Weight 70.443 kg Laboratory Last Values Urine Opiates Screen Not Detected (NotDetected) 08/30/20 21:44 Ur Oxycodone Screen Not Detected (NotDetected) 08/30/20 21:44 Urine Methadone Screen Not Detected (NotDetected) 08/30/20 21:44 Ur Propoxyphene Screen Not Detected (NotDetected) 08/30/20 21:44 Ur Barbiturates Screen Not Detected (NotDetected) 08/30/20 21:44 U Tricyclic Antidepress Not Detected (NotDetected) 08/30/20 21:44 Ur Phencyclidine Scrn Not Detected (NotDetected) 08/30/20 21:44 Ur Amphetamines Screen Not Detected (NotDetected) 08/30/20 21:44 U Methamphetamines Scrn Not Detected (NotDetected) 08/30/20 21:44 U Benzodiazepines Scrn Not Detected (NotDetected) 08/30/20 21:44 Urine Cocaine Screen Not Detected (NotDetected) 08/30/20 21:44 U Marijuana (THC) Screen Detected (NotDetected) H 08/30/20 21:44 08/31/20 11:33
--- NOTE | 2020-08-31 23:47 | P.CONS ---
History of Present Illness - Reason for Consult Consult date: 08/31/20 medical evaluation - Chief Complaint psychiatric eval - History of Present Illness 19 year old male with history of schizophrenia patient petitioned by family due to bizarre behavior , he was brought in by police for evaluation. patient denies any medical complaints, he is not taking his medications, claiming they dont work and he does not want to take them. patient thinks he is funny and goofy , and his family does not like it, for which they sent him here. he otherwise denies any medical complaints. he interrupted interview twice, claiming he needs to go get his meds. then he declined physical examination. Review of Systems limited due to patient mental health illness Past Medical History Past Medical History: No Reported History History of Any Multi-Drug Resistant Organisms: None Reported Past Surgical History: No Surgical Hx Reported Additional Past Surgical History / Comment(s): dog bite, plastic surgery to nose Past Anesthesia/Blood Transfusion Reactions: No Reported Reaction Past Psychological History: ADD/ADHD, Anxiety, Bipolar, Depression, Schizophrenia Smoking Status: Current every day smoker Past Alcohol Use History: Abuse, Occasional Past Drug Use History: Cocaine, Marijuana - Past Family History Mother Family Medical History: No Reported History Father Family Medical History: No Reported History Medications and Allergies Home Medications Medication Instructions Recorded Confirmed Type Acetaminophen Tab [Tylenol] 650 mg PO Q4HR PRN tab 07/26/20 08/30/20 Rx Nicotine 7Mg/24Hr Patch [Habitrol] 1 patch TRANSDERM DAILY #14 patch 07/26/20 08/30/20 Rx OLANZapine [ZyPREXA] 15 mg PO HS 30 Days tab 07/26/20 08/30/20 Rx LORazepam [Ativan] 0.5 mg PO BID 08/30/20 08/30/20 History Pantoprazole [Protonix] 40 mg PO QAM 08/30/20 08/30/20 History risperiDONE 3 mg PO BID 08/30/20 08/30/20 History risperiDONE MICROSPHERES 25 mg IM Q14D 08/30/20 08/30/20 History [RisperDAL CONSTA] traZODone HCL [Desyrel] 50 mg PO HS 08/30/20 08/30/20 History Allergies Allergy/AdvReac Type Severity Reaction Status Date / Time No Known Allergies Allergy Verified 11/03/20 22:24 Physical Exam Vitals: Vital Signs Temp Pulse Resp BP Pulse Ox 08/31/20 17:18 98.6 F 08/31/20 12:16 98.1 F 08/31/20 01:14 98 F 83 16 113/55 97 patient declined physical exam, he left the room Assessment and Plan Assessment: schizophrenia , bizarre behavior psych management Thank you for allowing us to participate in the care of this patient. We will follow peripherally. Do not hesitate to contact us with questions. Someone can be reached from the [facility] hospitalist group at all hours of the day at [phone].
[2020-09-01] MEDS: risperiDONE 1 MG TAB PO SCH ×2 (09:48→20:42)
[2020-09-01] MEDS: PANTOPRAZOLE 40 MG TABLET PO SCH (09:49)
[2020-09-01] MEDS: NICOTINE 7MG/24HR PATCH TRANSDERM SCH (09:49)
[2020-09-01 11:16] LABS: ALT 14 U/L (4-49); AST 26 U/L (17-59); African American GFR (CKD) >90 (>60 ml/min/1.73 sqM); Albumin 5.2 g/dL (3.5-5.0); Alkaline Phosphatase 61 U/L (38-126); Anion Gap 8 mmol/L; Blood Urea Nitrogen 12 mg/dL (9-20); Calcium 9.9 mg/dL (8.4-10.2); Carbon Dioxide 28 mmol/L (22-30); Chloride 103 mmol/L (98-107); Cholesterol 233 mg/dL (<200); Glucose 97 mg/dL (74-99); HDL Cholesterol 54 mg/dL (40-60); LDL Cholesterol,Calculated 164 mg/dL (0-99); Non-African American GFR(CKD) >90 (>60 ml/min/1.73 sqM); Potassium 4.9 mmol/L (3.5-5.1); Sodium 139 mmol/L (137-145); Total Bilirubin 2.2 mg/dL (0.2-1.3); Total Protein 7.9 g/dL (6.3-8.2); Triglycerides 74 mg/dL (<150)
[2020-09-01 12:04] LABS: Basophils % (A) 1 %; Eosinophils % (A) 0 %; HCT 48.1 % (39.0-53.0); HGB 15.8 gm/dL (13.0-17.5); Lymphocytes # (A) 1.2 k/uL (1.0-4.8); Lymphocytes % (A) 22 %; MCH 30.8 pg (25.0-35.0); MCHC 32.8 g/dL (31.0-37.0); Mean Platelet Volume 7.2; Monocytes # (A) 0.4 k/uL (0-1.0); Monocytes % (A) 6 %; Neutrophils # (A) 3.8 k/uL (1.3-7.7); Neutrophils % (A) 69 %; Platelet Count 236 k/uL (150-450); RBC 5.12 m/uL (4.30-5.90); WBC 5.6 k/uL (4.0-11.0)
--- NOTE | 2020-09-01 12:14 | P.PN ---
Progress Note - Text Progress Note Date: 09/01/20 Clinical Problems: Schizoaffective disorder bipolar type, cannabis use disorder moderate, rule out antisocial personal disorder Interim history: I reviewed the medical record, interviewed the patient and discuss his treatment and treatment plan during team meeting. He has been restless, loud, socially inappropriate, disruptive and intrusive. He has disruptive therapeutic groups and activities. She is often observed laughing inappropriately to himself. However, his behavior is not required when necessary medications over the last 24 hours. He has been compliant with risperidone 3 mg twice a day although he denies that he has mental illness or requires treatment. He shows no insight or understanding of his illness and shows no concern about the future. In particular, he was unconcerned that we may be able to discharge to a nursing home. 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 Mental status exam: He presented as a thin young male with acne. He made eye contact and appeared to attend to interview. He appeared disheveled and unkempt. He was not restless or agitated. He had no abnormal involuntary movements. His speech was spontaneous, rapid with normal volume. His affect was elevated and inappropriate. He did not express suicidal ideation or homicidal ideation. He denied feeling hopeless, helpless worthlessness. He didn't express clear ideas reference, paranoid ideation or delusions. His thinking was concrete but goal directed. He did not express clang associations or neologisms. He denied hallucinations and did not appear to be responding to internal stimuli. Assessment: He has signs and symptoms of hypomania. Plan: Continue inpatient treatment. Probate earring pending. Continue risperidone 3 mg twice a day and transition to Consta after the court order. Continue Ativan and/or Geodon for agitation or aggression. Encourage participation in therapeutic groups and activities as tolerated. Evaluate clinical status response to treatment daily basis.
[2020-09-01 12:25] LABS: MCV 93.9 fL (80.0-100.0)
[2020-09-01 15:46] LABS: Hemoglobin A1C 4.6 % (4.0-6.0)
[2020-09-01] MEDS: traZODone HCL 50 MG TAB PO SCH (20:43)
[2020-09-02 04:12] VITALS: RESP 14
[2020-09-02] MEDS: risperiDONE 1 MG TAB PO SCH ×2 (09:28→20:51)
[2020-09-02] MEDS: PANTOPRAZOLE 40 MG TABLET PO SCH (09:28)
[2020-09-02] MEDS: NICOTINE 7MG/24HR PATCH TRANSDERM SCH (09:30)
--- NOTE | 2020-09-02 11:55 | P.PN ---
Progress Note - Text Progress Note Date: 09/02/20 Clinical Problems: Schizoaffective disorder bipolar type, cannabis use disorder moderate, rule out antisocial personal disorder Interim history: I reviewed the medical record, interviewed the patient and discuss his treatment and treatment plan during team meeting. He had no concerns other than discharge. He is had no episodes of behavioral dyscontrol over the last 24 hours. Staff report that he is more controlled and directable although he continues to have episodes of inappropriate anger. He has not been disruptive in groups and is responds appropriately when redirected regarding his behavior. He has been fully compliant with prescribed medications. During treatment team we discussed discharge planning. Social work reported that he has "burned his bridges" in the community. Because he has recurrent and mental health legal problems we decided to organize a "community meeting" before discharge. Mental status exam: He presented as a somewhat disheveled appearing young male with acne. He made eye contact and appeared to attend to the interview. He had no abnormality of psychomotor activity. He was not agitated or restless. His speech was spontaneous with normal rate, rhythm and volume. His affect was anxious but not irritable or intense. He denied suicidal ideation or homicidal ideation. He did not express ideas reference, paranoid ideation or delusions. Her thinking is concrete but his associations were coherent and logical. He denied hallucinations did not appear to be responding to internal stimuli. Assessment: He has not improve from admission with decrease of restlessness, irritability and aggressive behavior. He is less socially inappropriate and demanding. Plan: Continue inpatient treatment. Probate hearing pending. Continue risperidone's 3 mg twice a day and transition to Consta after the probate hearing. lead supply worker to coordinate a "community meeting" and involving community mental health and registered representative from probate Court discussed discharge, discharge plans and aftercare. Encourage participation in therapeuti c groups and activities. Evaluate clinical status response to treatment daily basis.
[2020-09-02] MEDS: traZODone HCL 50 MG TAB PO SCH (20:51)
[2020-09-03] MEDS: PANTOPRAZOLE 40 MG TABLET PO SCH (09:07)
[2020-09-03] MEDS: risperiDONE 1 MG TAB PO SCH ×2 (09:07→19:58)
--- NOTE | 2020-09-03 18:22 | PN ---
PROGRESS NOTE DATE OF SERVICE: 09/03/2020 CHIEF COMPLAINT: The patient was psychotic. He had disorganized behavior. He was discharged from [facility] due to behavioral issues. INTERVAL HISTORY: The patient continues to have significant troubles with behavior and function. He was out on the unit yesterday. Apparently, he shows ups and downs in his mood where he gets intense and angry. He attended groups yesterday. Some of the group notes indicated that he had difficulty engaging appropriately in the activities. He will interact some with others. He slept fairly well last night. Today he has been up. He continues the same. He will have periods where he is quiet. He will be out on the unit and does seem to pay attention to things going on around him and at other times he can get loud and make odd or disorganized comments. He attended groups and continues to struggle quite a bit with engaging appropriately in the groups. At one point during the group he was reluctant to leave the group when asked. He was asked because of inappropriate gesturing. When I attempted to talk to the patient initially he declined coming to the office. When I asked him some questions in the hallway he just made comments that had nothing to do with questions asked. Later on while I was in the office he would come to the office door and make various comments though he did not engage directly in any meaningful conversation. He appears to tolerate his psychotropic medications. MENTAL STATUS: Patient did not engage in a meaningful conversation. He did make various disorganized comments that were disconnected from any aspects of discussing his current situation. His affect was intense. His mood dysphoric. He seemed significantly distressed. He has disordered thinking. It is difficult to assess for thoughts of harm. He was oriented to circumstances and surroundings. ASSESSMENT: I will continue the current diagnosis and treatment plan. I will change the patient's Risperdal so that he has a dose of 3 mg at 9:00 am and 3 mg at 6:00 pm. I will start the patient on Haldol 10 mg at bedtime. He continues to show significant disordered thinking. We will focus on stabilization and discharge planning. CARLOS A / GEOVANY: [phone] /
[2020-09-03] MEDS: haloperidoL 5 MG TAB PO SCH (19:57)
[2020-09-03] MEDS: traZODone HCL 50 MG TAB PO SCH (19:57)
[2020-09-04] MEDS: risperiDONE 1 MG TAB PO SCH ×2 (09:34→19:45)
[2020-09-04] MEDS: PANTOPRAZOLE 40 MG TABLET PO SCH (09:34)
[2020-09-04] MEDS: traZODone HCL 50 MG TAB PO SCH (21:33)
[2020-09-04] MEDS: haloperidoL 5 MG TAB PO SCH (21:33)
--- NOTE | 2020-09-05 00:56 | PN ---
PROGRESS NOTE DATE OF SERVICE: 09/04/2020 CHIEF COMPLAINT: The patient was psychotic. He had disorganized behavior. He was discharged from [facility] due to behavioral issues. INTERVAL HISTORY: Patient continues to do the same. He was out and about yesterday. He continues with ups and downs in his mood and behaviors. He sometimes will engage staff, though will go off into odd discussions. At other times, he is more reserved. Nursing noted that yesterday after I had talked to him he was in the perdomo sitting down and crying. It was not really clear what the issue was at that point. He attended some groups yesterday and for the most part was disorganized in thoughts and behavior. He slept fairly well last night. Today he has been up. He continues the same. He wanders the unit. He attended one group today and made some disconnected statements. He has been cooperative with staff. At one point when I was in the office doing some paperwork. He walked into the office and stood right at my chair. When I asked what issues or concerns he had, he then just turned around and walked out. I saw him a couple of different times later on the unit and asked if he wanted to come in and talk, though he declined at those times. He has been taking his medications and had no issue with adding Haldol at bedtime. He appears to tolerate his psychotropic medications. MENTAL STATUS: Patient as noted had disorganized behavior. Mostly he would make 1 or 2 odd comments when I would talk to him. His comments were pretty much disconnected to any at hand issues. He otherwise did not make an effort to give any information or voice any concerns. His affect was intense. His mood dysphoric. It was difficult to assess how distressed he might be. His behavior is suggestive of disorganized thoughts from psychosis. He is oriented to circumstances and surroundings. ASSESSMENT: I will continue the current diagnosis and treatment plan. I will continue psychotropic medications the same. Risperdal has been increased to 3 mg twice a day. Haldol has been added for continued psychotic symptoms. The patient was not able to engage in a conversation relating to medication issues. We will focus on stabilization and discharge planning. MMKAINL / QUINTONN: [id number] /
[2020-09-05] MEDS: PANTOPRAZOLE 40 MG TABLET PO SCH (09:02)
[2020-09-05] MEDS: risperiDONE 1 MG TAB PO SCH ×2 (09:02→18:44)
--- NOTE | 2020-09-05 12:25 | P.PN ---
Progress Note - Text Progress Note Date: 09/05/20 Clinical Problems: Schizoaffective disorder bipolar type, cannabis use disorder moderate, rule out antisocial personal disorder Interim history: I reviewed the medical record, interviewed the patient and discussed his treatment and treatment plan during team meeting. He came into my office but provided little information. He was guarded. He denied that he had problems or concerns but anticipates to be discharged after his probate hearing. He would not talk about aftercare or aftercare plans. He is attending therapeutic groups and activities. The therapists complain that he is intrusive and inappropriate in groups. He requires multiple redirections to maintain focus and attention. He is had no episodes of behavioral dyscontrol. Over the weekend, the covering psychiatrist started Haldol 10 mg at bedtime in addition to his current dose of risperidone. He alleged that he is unaware of his psychiatrist started a second antipsychotic. Mental status exam: He presented as a somewhat disheveled appearing young male who was pleasant on approach. He made eye contact and appeared to attend to the interview. He had an angry facial expression. He showed slight psychomotor retardation but had no abnormal involuntary movements. Speech was not spontaneous. He provided little information and answered questions tersely. His affect was angry. He did not express suicidal or homicidal ideation. He did not express ideas reference or clear paranoid ideations or delusions. His thinking was concrete but his associations appeared goal directed. He does not appear to responding to internal stimuli. Assessment: He is less irritable and agitated on admission. His speech is no longer pressured but is angry. He continues to be disruptive in structure social circumstances. Plan: Continue inpatient treatment pending the probate hearing. Continue risperidone 3 mg twice a day and Haldol 10 mg at bedtime. Discuss continuating only 1 antipsychotic either risperidone or haloperidol. Encouraged continued participation in therapeutic groups and activities. Evaluate clinical status response to treatment daily basis.
[2020-09-05] MEDS: traZODone HCL 50 MG TAB PO SCH (20:56)
[2020-09-05] MEDS: haloperidoL 5 MG TAB PO SCH (20:56)
[2020-09-06] MEDS: PANTOPRAZOLE 40 MG TABLET PO SCH (09:38)
[2020-09-06] MEDS: risperiDONE 1 MG TAB PO SCH ×2 (09:38→17:40)
--- NOTE | 2020-09-06 12:28 | P.PN ---
Progress Note - Text Progress Note Date: 09/06/20 Clinical Problems: Schizoaffective disorder bipolar type, cannabis use disorder moderate, rule out antisocial personal disorder Interim history: Reviewed the medical record, interviewed the patient and discussed his treatment and treatment plan during team meeting. When I arrived on the unit this morning he gestured with his fingers as though she were shooting a gun. He later came to my office and became acutely distressed. I approached about signing consent for psychotropic medications. He alleged that he was unaware that the covering physician this week, started Haldol. He referred to Haldol as "hellfire" and laughed hysterically as he said the word "hellfire". He was angry and confrontational. He did not sign consent and demanded to be taken off the Haldol. Mental status exam: Presented as a disheveled appearing young male who is angry and demanding. He made eye contact and appeared to attend to the interview. No abnormal involuntary movements. She had slight psychomotor retardation. His speech was spontaneous and consistent with his mood. His affect was labile and at times intense and inappropriate. His thinking was concrete and associations weren't fully organized goal directed. He did not appear to be responding to internal stimuli. Assessment: He Remains psychotic, angry and labile. He shows no insight or understanding of his illness but has been compliant with prescribed psychotropic medications. Plan: Continue inpatient treatment. Probate hearing pending. Continue Risperdal 3 mg twice a day and continue discuss treatment with Haldol. Transition to Concerta after receives the court ordered for treatment.
[2020-09-06] MEDS: traZODone HCL 50 MG TAB PO SCH (22:07)
[2020-09-06] MEDS: haloperidoL 5 MG TAB PO SCH (22:07)
[2020-09-07] MEDS: risperiDONE 1 MG TAB PO SCH ×2 (09:00→17:44)
[2020-09-07] MEDS: PANTOPRAZOLE 40 MG TABLET PO SCH (09:01)
--- NOTE | 2020-09-07 12:21 | P.PN ---
Progress Note - Text Progress Note Date: 09/07/20 Clinical Problems: Schizoaffective disorder bipolar type, cannabis use disorder moderate, rule out antisocial personal disorder Interim history: I reviewed the medical record, interviewed the patient and discussed his treatment and treatment plan during team meeting. He was pleasant on approach and denied concerns often wished to be discharged. He is had no episodes of behavioral dyscontrol. His been compliant with his medications included Haldol 10 mg at bedtime. He did not complain today about the continued prescription of Haldol in addition to the risperidone. She would not talk about his past history. When I inquired about the issues between him and his mother he told me was "pretty such information"that is only available on a "need to know basis." And I don't need to know that information. The mental health social worker met with his examining officer who recommended that he finished the last 30 days of his probation in senior care if unless we find a suitable alternative and community. Mental status exam: He resented as a disheveled appearing young male who is angry and demanding. He made eye contact and appeared to attend to the interview. No abnormal involuntary movements. He was restless and frequently paces the unit. His speech was spontaneous and consistent with his mood. His affect was labile and he was also guarded and suspicious.. He intermittently laughed hysterically. His thinking was concrete and associations weren't fully organized goal directed. He did not appear to be responding to internal stimuli. Assessment: He paranoid, restless and labile. He shows no insight or understanding of his illness but has been compliant with prescribed psychotropic medications. Plan: Continue inpatient treatment. Probate hearing pending. Continue Risperdal 3 mg twice a day and continue discuss treatment with Haldol. Transition to [facility] after receives the court ordered for treatment.
[2020-09-07] MEDS: haloperidoL 5 MG TAB PO SCH (21:06)
[2020-09-07] MEDS: traZODone HCL 50 MG TAB PO SCH (21:06)
[2020-09-08] MEDS: PANTOPRAZOLE 40 MG TABLET PO SCH (09:16)
[2020-09-08] MEDS: risperiDONE 1 MG TAB PO SCH ×2 (09:16→18:39)
--- NOTE | 2020-09-08 12:20 | P.PN ---
Progress Note - Text Progress Note Date: 09/08/20 Clinical Problems: Schizoaffective disorder bipolar type, cannabis use disorder moderate, rule out antisocial personal disorder Interim history: I reviewed the medical record, interviewed the patient and discussed his treatment and treatment plan during team meeting. He came to my office with request to be discharged after the probate hearing this afternoon. Explained that the plan is to discharge him tomorrow. I also made them aware that he has a warrant for his arrest and may be transported by [facility] officer head [facility] the [facility] of [facility]. He has no objections to being discharged tomorrow or returning to [facility]. He denied feeling depressed. He denied experiencing auditory, visual or olfactory hallucinations. Denied ideas of reference, thought insertion, thought broadcasting or thought control. His behavior has been controlled on the unit. He is attending therapeutic groups and activities and the therapist felt that he requires frequent redirection for interrupting the therapist and other patients. He had no objection to continuing Haldol in addition to the risperidone. Mental status exam: He resented as a disheveled appearing young male who was pleasant on approach. He made eye contact and appeared to attend to the interview. He had no abnormal involuntary movements. He was not restless but frequently paces the unit. His speech was spontaneous and consistent with his mood. His affect was wanted, stable and appropriate he did not laugh inappropriately.. His thinking was concrete and associations weren't fully organized goal directed. He did not appear to be responding to internal stimuli. Assessment: He is less paranoid and labile. He shows no insight or understanding of his illness but has been compliant with prescribed psychotropic medications. Plan: Continue inpatient treatment. Probate hearing this afternoon. Continue Risperdal 3 mg twice a day and and Haldol 10 mg at bedtime. Plan for discharge on 09/09/2020 to the custody of his correction officer head.
[2020-09-08 15:32] VITALS: BMI 21.5
[2020-09-08] MEDS: traZODone HCL 50 MG TAB PO SCH (20:30)
[2020-09-08] MEDS: haloperidoL 5 MG TAB PO SCH (20:30)
[2020-09-09 06:56] VITALS: BP 113/55; PULSE 72; TEMP 98
[2020-09-09] MEDS: risperiDONE 1 MG TAB PO SCH (10:59)
[2020-09-09] MEDS: PANTOPRAZOLE 40 MG TABLET PO SCH (10:59)
--- NOTE | 2020-09-09 12:07 | P.DS ---
Providers Date of admission: 08/30/20 23:51 Attending physician: Herson France MD Consults: 08/31/20 00:21 Consult Physician Routine Consulting Provider: Awilda Physician Consult Reason/Comments: H&P and medical Do you want consulting provider notified?: Yes Primary care physician: [facility] - Discharge Diagnosis(es) (1) Schizoaffective disorder, bipolar type Current Visit: Yes Status: Chronic Priority: High (2) Involuntary commitment Current Visit: Yes Status: Acute Priority: High (3) Noncompliance Current Visit: No Status: Chronic Priority: High Hospital Course: HISTORY: He is a 19-year-old single male admitted to psychiatric unit involuntarily. His mother completed a Petition that read "refusal of medications, disoriented, hearing voices, hiding belongings, irrational thoughts and actions, aggressive, confused." He was unable to explain the reason for this hospitalization he stated he was "minding my own business when the police came and told them they have to take me in for protective custody." He denied problems or concerns and denied the need for psychiatric hospitalizations. He is well known to psychiatric unit from prior hospitalizations. This is his fifth admission since May 2019. He was last discharged from the unit in June 2020 to the [facility]. His discharge discharge medications included Zyprexa 50 mg daily. Between his last admission and the current [facility] placed him at the [facility]. His mother told the [facility] nurse that he was in [facility]. He left the house to go to a Halloween libertarian on Saturday. After the libertarian he became more psychotic. He was discharged from [facility] on the day of admission. He took some of his personal belongings and buried them in a park. Then returned [facility] and took more items went back to Park and buried them as well. His mother is afraid of him (she has a PPO) and called the police as soon as she learned that he was discharged from the [facility]. He admits to stopping his medications while he was in [facility]. Apparently the psychiatrist that [facility] placed him on Risperdal Consta. He bragged about refusing to continue with the shots (" I don't need needles.") And then failing to take the prescribed oral medication. He denied feeling depressed or having thoughts of or suicide. He denied homicidal ideation. He alleged that the protective order was a result of a plea bargain and denied that he had threatened or assaulted his mother. He denied experiencing distress and anxiety. He denied obsessions or compulsions. He denied experiencing auditory, visual or olfactory hallucinations, ideas reference, thought insertion, thought broadcasting or thought control. He denied use of drugs with the exception of marijuana. His breath alcohol level in the EC was negative and his urine drug screen was positive for cannabinoids. HOSPITAL COURSE: We admitted him to the psychiatric unit involuntarily and provided a comprehensive biopsychosocial assessment. The sourcing consultant planner/scheduler completed initial physical exam and medical history and did not diagnose a major medical problem. Her resumed his outpatient dose of risperidone 3 mg by mouth twice a day. He had episodes of agitation when he arrived on the unit and req uired IM injection of Ativan and Geodon. The covering psychiatrist started haloperidol in addition to the risperidone. Once his psychiatric status improved with reduced the dose of Haldol and did not consolidated discharge medication list. He was agitated, restless, impulsive and argumentative he first arrived on the unit. He was disruptive in therapeutic groups and activities and required frequent redirection. However, he had no episodes of behavioral dyscontrol and had no episodes of seclusion and restraint. He refused to consent to CONSTA. After his probate hearing he received a 60/180 involuntary treatment order. He received his first injection of CONSTA after the order and prior to discharge. The social human services assistants spoke with his protective services officer and learned that he has a warrant for his arrest. However the social human services assistants recommended that we discharge him to a senior living with recommendations to keep his appointment with the officer. MENTAL STATUS ON DISCHARGE: At time of discharge she presented as a tall thin young male who was pleasant on approach. He made eye contact and attended to interview. He had no distinguishing features or prominent physical abnormalities. He had a blunted facial expression. He had slight psychomotor retardation but no abnormal involuntary movements. His speech was spontaneous with decreased rate and rhythm. His affect was blunted but stable and appropriate. He denied suicidal ideation or wishes. He denied homicidal ideation. He did not express feelings of hopelessness, helplessness or worthlessness. He did not express ideas reference, paranoid ideation or delusions. His thinking was concrete but his associations were coherent, logical and goal directed. He denied hallucinations and did not appear to be responding to internal stimuli. DISPOSITION: He was discharged local senior living with follow-up appointments at [facility]. His discharge psychotropic medications included risperidone 3 mg by mouth twice a day and CONSTA 25 mg every 14 days, called his next injection is due on 09/23/2020. Patient Condition at Discharge: Stable Plan - Discharge Summary New Discharge Prescriptions: Continue Nicotine 7Mg/24Hr Patch [Habitrol] 1 patch TRANSDERM DAILY #14 patch Acetaminophen Tab [Tylenol] 650 mg PO Q4HR PRN tab PRN Reason: Pain/Discomfort traZODone HCL [Desyrel] 50 mg PO HS Pantoprazole [Protonix] 40 mg PO QAM risperiDONE 3 mg PO BID #60 tab risperiDONE MICROSPHERES [RisperDAL CONSTA] 25 mg IM Q14D #1 syr Discontinued OLANZapine [ZyPREXA] 15 mg PO HS 30 Days tab LORazepam [Ativan] 0.5 mg PO BID Discharge Medication List Acetaminophen Tab [Tylenol] 650 mg PO Q4HR PRN tab 07/26/20 [Rx] Nicotine 7Mg/24Hr Patch [Habitrol] 1 patch TRANSDERM DAILY #14 patch 07/26/20 [Rx] Pantoprazole [Protonix] 40 mg PO QAM 08/30/20 [History] traZODone HCL [Desyrel] 50 mg PO HS 08/30/20 [History] risperiDONE 3 mg PO BID #60 tab 09/09/20 [Rx] risperiDONE MICROSPHERES [RisperDAL CONSTA] 25 mg IM Q14D #1 syr 09/09/20 [Rx] Follow up Appointment(s)/Referral(s): [facility] [Outside] - 09/13/20 1:30 pm (09-13-20 @ 1:30 with OMEGA Epperson at [facility] office 09-15-20 @ 10:00 with James Torres by phone) [facility] [Primary Care Provider] - 1-2 days Activity/Diet/Wound Care/Special Instructions: Activity and diet as tolerated. Avoid the use of street drugs and alcohol. Take all medications as prescribed. When you are in need of refills on your medications please contact your medical provider and/or outpatient psychiatrist to have this done. Please go to scheduled outpatient appointment for aftercare treatment. If symptoms return or become worse, call the crisis line at and/or go to the nearest emergency room for evaluation. Discharge Disposition: HOME SELF-CARE
[2020-09-09] MEDS ORDERED: haloperidoL 5 MG TAB PO SCH (21:00)
== END 2020-09-09 14:09 | disposition home or self-care (01) | DRG 885 ==
LOC: EC 20:51 → 3MHU 23:51
PROVIDERS: ADMIT Psychiatry & Neurology Psychiatry; ATTEND Psychiatry & Neurology Psychiatry
DX: F25.0 Schizoaffective disorder, bipolar type (principal); F12.10 Cannabis abuse, uncomplicated; F17.210 Nicotine dependence, cigarettes, uncomplicated; Z65.3 Problems related to other legal circumstances; F90.9 Attention-deficit hyperactivity disorder, unspecified type; T43.96XA Underdosing of unspecified psychotropic drug, initial encounter; Z91.128 Patient's intentional underdosing of medication regimen for other reason; Z91.19 Patient's noncompliance with other medical treatment and regimen; Z91.83 Wandering in diseases classified elsewhere; F41.9 Anxiety disorder, unspecified
CPT/HCPCS: 80053; 80061; 80306; 82075; 83036; 84443; 85025; 99285

== ENCOUNTER 2020-09-28 08:48 | Inpatient (IN) | payer MEDICAID, OTHER ==
--- NOTE | 2020-09-28 09:10 | ED ---
General Adult HPI - General Chief complaint: Psychiatric Symptoms Stated complaint: Mental Health Time Seen by Provider: 09/28/20 09:03 Source: patient, police, RN notes reviewed Mode of arrival: ambulatory Limitations: no limitations - History of Present Illness Initial comments: Patient is a 19-year-old male presenting to the emergency department with police officers for mental health evaluation. Patient reportedly has been acting delusional. Patient has very limited interaction and is prefer not to answer questions. Patient will not or decline either affirmative or negative. Patient denies suicidal thoughts. Patient denies having racing thoughts or delusional thoughts. Patient will not answer is on medication. Patient denies any physic al complaints. History is limited. Patient denies hallucinations. - Related Data Home Medications Medication Instructions Recorded Confirmed OLANZapine [ZyPREXA] 20 mg PO HS 09/28/20 09/28/20 Allergies Allergy/AdvReac Type Severity Reaction Status Date / Time No Known Allergies Allergy Verified 09/28/20 09:41 Review of Systems ROS Statement: Those systems with pertinent positive or pertinent negative responses have been documented in the HPI. ROS Other: All systems not noted in ROS Statement are negative. Constitutional: Denies: fever Eyes: Denies: eye pain ENT: Denies: ear pain Respiratory: Denies: cough Cardiovascular: Denies: chest pain Endocrine: Denies: fatigue Gastrointestinal: Denies: abdominal pain Genitourinary: Denies: dysuria Musculoskeletal: Denies: back pain Skin: Denies: rash Neurological: Denies: weakness Psychiatric: Reports: as per HPI Past Medical History Past Medical History: No Reported History History of Any Multi-Drug Resistant Organisms: None Reported Past Surgical History: No Surgical Hx Reported Additional Past Surgical History / Comment(s): dog bite, plastic surgery to nose Past Anesthesia/Blood Transfusion Reactions: No Reported Reaction Past Psychological History: ADD/ADHD, Anxiety, Bipolar, Depression, Schizophrenia Smoking Status: Current every day smoker Past Alcohol Use History: Abuse, Occasional Past Drug Use History: Cocaine, Marijuana - Past Family History Mother Family Medical History: No Reported History Father Family Medical History: No Reported History General Exam Limitations: no limitations General appearance: alert, in no apparent distress Head exam: Present: atraumatic Eye exam: Present: normal appearance Respiratory exam: Present: normal lung sounds bilaterally Cardiovascular Exam: Present: regular rate, normal rhythm GI/Abdominal exam: Present: soft. Absent: tenderness Extremities exam: Present: normal inspection Neurological exam: Present: alert Psychiatric exam: Present: flat affect Skin exam: Present: normal color Course Vital Signs 09/28/20 08:51 Temperature 97.7 F Pulse Rate 91 Respiratory 18 Rate Blood Pressure 135/88 O2 Sat by Pulse 100 Oximetry Medical Decision Making - Medical Decision Making Patient was admitted to mental health unit - Lab Data Lab Results 09/28/20 09/28/20 Range/Units 10:06 10:06 Urine Opiates Screen Not Detected (NotDetected) Ur Oxycodone Screen Not Detected (NotDetected) Urine Methadone Screen Not Detected (NotDetected) Ur Propoxyphene Screen Not Detected (NotDetected) Ur Barbiturates Screen Not Detected (NotDetected) U Tricyclic Antidepress Not Detected (NotDetected) Ur Phencyclidine Scrn Not Detected (NotDetected) Ur Amphetamines Screen Not Detected (NotDetected) U Methamphetamines Scrn Not Detected (NotDetected) U Benzodiazepines Scrn Not Detected (NotDetected) Urine Cocaine Screen Not Detected (NotDetected) U Marijuana (THC) Screen Detected H (NotDetected) Coronavirus (PCR) Not Detected (Not Detectd) Disposition Clinical Impression: Acute psychosis Disposition: TRANSFER TO PSYCH HOSP/UNIT Is patient prescribed a controlled substance at d/c from ED?: No
[2020-09-28 11:52] LABS: Amphetamine Screen,Urine Not Detected (NotDetected); Barbiturate Screen,Urine Not Detected (NotDetected); Benzodiazepines Screen,Urine Not Detected (NotDetected); Cocaine Screen,Urine Not Detected (NotDetected); Methadone Screen, Urine Not Detected (NotDetected); Opiate Screen,Urine Not Detected (NotDetected); Oxycodone Screen, Urine Not Detected (NotDetected); Phencyclidine Screen,Urine Not Detected (NotDetected); Tricyclic Antidepressant,Urine Not Detected (NotDetected); Urn Cannabinoid Scrn Detected (NotDetected)
[2020-09-28] MEDS ORDERED: ACETAMINOPHEN TAB 325 MG TAB PO PRN (12:22)
[2020-09-28] MEDS ORDERED: MAG HYDROX/AL HYDROX/SIMETH 30 ML CUP PO PRN (12:22)
[2020-09-28] MEDS ORDERED: MAGNESIUM HYDROXIDE 2,400 MG/10 ML CUP PO PRN (12:22)
[2020-09-28] MEDS ORDERED: LORazepam 2 MG/ML INJ IM PRN (12:26)
[2020-09-28] MEDS ORDERED: haloperidoL 5 MG TAB PO PRN (12:27)
[2020-09-28] MEDS ORDERED: diphenhydrAMINE 50 MG/ML 1 ML VIAL ONE (12:28)
[2020-09-28] MEDS ORDERED: diphenhydrAMINE 50 MG/ML 1 ML VIAL IM PRN (12:28)
[2020-09-28] MEDS ORDERED: LORazepam 2 MG/ML INJ ONE (12:28)
[2020-09-28] MEDS ORDERED: diphenhydrAMINE 50 MG CAP PO PRN (12:28)
[2020-09-28] MEDS ORDERED: HALOPERIDOL LACTATE 5 MG/ML 1 ML VIAL ONE (12:28)
[2020-09-28] MEDS: risperiDONE 1 MG TAB PO SCH ×2 (12:30→22:40)
[2020-09-28] MEDS: LORazepam 2 MG/ML INJ IM STA ×2 (12:32→15:44)
[2020-09-28] MEDS: HALOPERIDOL LACTATE 5 MG/ML 1 ML VIAL IM PRN (12:45)
[2020-09-28] MEDS: NICOTINE 14MG/24HR PATCH TRANSDERM SCH (13:00)
[2020-09-28] MEDS: traZODone HCL 50 MG TAB PO SCH (22:40)
--- NOTE | 2020-09-29 00:16 | P.PN ---
Progress Note - Text Progress Note Date: 09/28/20 attempted to evaluate the patient , however , he was sedated an inappropriate for evaluation at this time 09/28/2020 2030
[2020-09-29] MEDS: risperiDONE 1 MG TAB PO SCH (08:54)
[2020-09-29] MEDS: PANTOPRAZOLE 40 MG TABLET PO SCH (08:55)
[2020-09-29] MEDS: NICOTINE 14MG/24HR PATCH TRANSDERM SCH (10:08)
--- NOTE | 2020-09-29 11:49 | P.HP ---
Psychiatric H&P - . H&P Date: 09/29/20 History & Physical: IDENTIFYING DATA: He is a 20-year-old single male transferred from skilled nursing with a petition completed by the social work faculty member at [facility]. He is currently on a 160 day involuntary treatment order that began September 08 2020 HISTORY OF PRESENT ILLNESS: He is known to this unit from prior admissions. This is his sixth admission to the unit and the fifth for this year. We last discharged him on 09/09/2020 with diagnosis of a schizoaffective disorder bipolar type. We unfortunately discharge him to a intermediate because he has no income, sabotaged placements through [facility] and cannot live wi th his family due to his aggressive and disruptive behavior (his mother has a PPO). He had a follow-up appointment scheduled on 09/13/2020 at [facility]. He was mute during the interview. He stared blankly and would not answer questions. According to the Petition, completed by the match up worker, while he was in skilled nursing he was delusional and agitated. He refused to take prescribed psychotropic medications. He told the psychiatric nurse that he "don't need medication". The psychiatric nurse notes that he needs to be petitioned by the social work faculty member, he was a harm to himself and others, doing karate in his cell, removed his clothes and placed his face mask on his genitals. He will put the mask on his face and wrapped a sock around his forehead. The note also ind icates that he stands naked in his cell "yelling random things at people." According to information from [facility] he did not keep his follow-up appointment. The [facility] liaison saw him in skilled nursing on 09/28/2020. He is verbally aggressive with staff and refusing to seek medical staff in skilled nursing. He refused to answer questions and refused to take his medications. During his last hospitalization the social work faculty member to coordinate a meeting with [facility] and his zoology technical officer. As a result meeting his ambulance operations supervisor initiated guardianship and the guardianship hearing is scheduled for November. We suspect that his zoology technical officer initiated the arrest that led to his incarceration. PAST PSYCHIATRIC HISTORY: He has long history of mental illness and mental health treatment beginning in childhood. He was initially treated with psychostimulants for purported ADHD and/or conduct disorder. In addition to the 5 admissions at this facility has been at other psychiatric hospitals in the community. His most recent diagnoses include unspecified psychotic disorder, schizoaffective disorder and cannabis use disorder. He is frequently noncompliant with treatment. His last admission was involuntarily under a demand for hearing after he deferred the probate hearing from a mission prior. PAST MEDICAL HISTORY: No major medical problems. ALLERGIES: NO KNOWN DRUG ALLERGIES SUBSTANCE USE HISTORY: He has a history of marijuana use and his UDS was positive for marijuana. FAMILY PSYCHIATRIC/SUBSTANCE USE HISTORY: Unknown LEGAL HISTORY: He is a skilled nursing hold and returning to skilled nursing once his inpatient psychiatric treatment is completed. He has a history of legal problems beginning in adolescence. He was involved in the juvenile system. He is open charges of assault. SOCIAL HISTORY: He is raised by his mother and stepfather. He completed school only to the 10th grade. His history of suspensions but denied school expulsions. He lived with various family members due to his behavioral problems. He has had periods of homelessness. He has no income and currently is homeless. MENTAL STATUS EXAM: He presented as a thin 20-year-old male who refused to answer questions. He stood mute throughout the attempted interview. He did not make eye contact and did not appear to attend to the interview. He had a flat facial expression. He had no abnormality of psychomotor activity. He appeared angry. He did not appear to be responding to internal stimuli. STRENGTHS: Good physical health, active with community mental health WEAKNESSES: Lack of income, lack of housing, recurrent legal problems, chronic and suspicious to behavioral mental health problems IMPRESSION: Is a 19-year-old single male with long history of behavioral mental problems beginning in childhood that affect his ability to attend to complete school, maintaining gainful employment or maintaining consistent supportive interpersonal relationships. He is had multiple psychi atric hospitalizations as well as recurrent involvement with the legal system. He presented to the unit involuntarily on transfer from the skilled nursing where he displayed bizarre behavior. He also refused to take prescribed psychotropic medications. PRINCIPLE DIAGNOSIS: Schizoaffective disorder bipolar type, poor compliance with psychiatric treatment, physical problems RECOMMENDATION: Admitted to the psychiatric unit. Safety precautions. Consult medicine for initial physical exam and medical history. construction worker completed initial psychosocial assessment coordinate discharge and aftercare. Discontinue risperidone 3 mg by mouth twice a day because Risperdal CONSTA in on on the skilled nursing formulary. Begin Haldol 5 mg by mouth twice a day; Haldol 5 mg IM if he refuses the by mouth dose. Once establish tolerance begin Haldol decanoate. Haldol and/or Ativan when necessary for agitation or aggression. Encourage participation in therapeutic groups and activities. Evaluate clinical status response to treatment on a daily basis. Allergies Allergy/AdvReac Type Severity Reaction Status Date / Time No Known Allergies Allergy Verified 09/28/20 13:03 Vital Signs Temp 97.5 F L 09/28/20 18:12 Pulse 86 09/28/20 12:02 Resp 16 09/28/20 12:02 BP 135/74 09/28/20 12:02 Pulse Ox 96 09/28/20 12:02 Intake & Output 09/28/20 09/29/20 09/29/20 18:59 06:59 18:59 Weight 67.9 kg Laboratory Last Values Urine Opiates Screen Not Detected (NotDetected) 09/28/20 10:06 Ur Oxycodone Screen Not Detected (NotDetected) 09/28/20 10:06 Urine Methadone Screen Not Detected (NotDetected) 09/28/20 10:06 Ur Propoxyphene Screen Not Detected (NotDetected) 09/28/20 10:06 Ur Barbiturates Screen Not Detected (NotDetected) 09/28/20 10:06 U Tricyclic Antidepress Not Detected (NotDetected) 09/28/20 10:06 Ur Phencyclidine Scrn Not Detected (NotDetected) 09/28/20 10:06 Ur Amphetamines Screen Not Detected (NotDetected) 09/28/20 10:06 U Methamphetamines Scrn Not Detected (NotDetected) 09/28/20 10:06 U Benzodiazepines Scrn Not Detected (NotDetected) 09/28/20 10:06 Urine Cocaine Screen Not Detected (NotDetected) 09/28/20 10:06 U Marijuana (THC) Screen Detected (NotDetected) H 09/28/20 10:06 Coronavirus (PCR) Not Detected (Not Detectd) 09/28/20 10:06 09/29/20 09:41 09/29/20 11:42
[2020-09-29] MEDS: traZODone HCL 50 MG TAB PO SCH (20:17)
[2020-09-30] MEDS: NICOTINE 14MG/24HR PATCH TRANSDERM SCH (09:59)
[2020-09-30] MEDS: PANTOPRAZOLE 40 MG TABLET PO SCH (10:00)
[2020-09-30] MEDS: HALOPERIDOL LACTATE 5 MG/ML 1 ML VIAL IM PRN ×2 (11:02→21:09)
--- NOTE | 2020-09-30 11:48 | P.PN ---
Progress Note - Text Progress Note Date: 09/30/20 Clinical Problems: Schizoaffective disorder bipolar type, poor compliance with psychiatric treatment, legal problems Interim history: I reviewed the medical record, attempted to interview the patient and discuss his treatment and treatment plan during team meeting. He refused to get out of bed to speak with me. I approached him again when he was pacing the hallway and he declined to come into my office or speak with me. He has shown no episodes of behavioral dyscontrol since admission to the unit. He took his initial dose of Haldol yesterday but refused this morning and received Haldol 5 mg IM since he is on a involuntary treatment order. He attended to therapeutic groups yesterday and the therapist now that he was disruptive. He slept 4 hours last night. Mental status exam: He presented as a tall thin male who is angry and uncooperative. He initially would not make eye contact and would not take blankets off his head. Later, he made eye contact but spoke little. He is restless inpatient unit. He is not agitated and did not appear to be responding to internal stimuli. Assessment: He is severely mentally ill and has been noncompliant with treatment. He was transferred from nursing home because he had refused to take prescribed psychotropic medications and was still saying bizarre and aggressive behavior. Plan: Continue inpatient treatment. Continue safety precautions. Continue Haldol 4 mg by mouth twice a day and Haldol 5 mg IM decreases the dose. Con tinue Haldol and Ativan for agitation or aggression. Begin Haldol decanoate once reestablish tolerance to Haldol. Evaluate clinical status response to treatment on a daily basis.
[2020-09-30] MEDS: LORazepam 1 MG TAB PO PRN (17:01)
[2020-09-30] MEDS: traZODone HCL 50 MG TAB PO SCH (21:07)
[2020-10-01] MEDS: NICOTINE 14MG/24HR PATCH TRANSDERM SCH (09:23)
[2020-10-01] MEDS: PANTOPRAZOLE 40 MG TABLET PO SCH (09:23)
[2020-10-01] MEDS: HALOPERIDOL LACTATE 5 MG/ML 1 ML VIAL IM PRN ×2 (09:38→20:39)
--- NOTE | 2020-10-01 09:53 | P.PN ---
Progress Note - Text Progress Note Date: 10/01/20 Interval history: Patient was seen laying in his bed today with his sheets covering his face and entire body and was sleeping. Patient acknowledges entry writer's voice and responded with grunting. He claims that he did not want to get out of bed today and did not want to participate in the interview. Patient told entry writer to leave his room and stopped talking. Mental status exam: General Appearance: Patient appears to be covered with his blankets, stated age is alert, uncooperative. Behavior: [No agitated behavior. uncooperative Speech: Patient's speech is fluent and nonpressured. Responds with grunting. Mood/Affect: Unable to assess Suicidality/Homicidality: Unable to assess Perceptions: Unable to assess Though content/process: [place], grunting. Memory and concentration: Unable to assess Judgment and insight: poor Assessment/Plan: Continue with current diagnosis. Patient continues to meet criteria for inpatient psychiatric admission for symptom stabilization and safety.Patient will be maintained on current psychotropic medication regimen. Patient to receive Haldol IM if he refuses by mouth. Monitor for medication compliance and for any psychotropic medication side effects. Will continue to monitor ongoing response to treatment. Encouraged participation in milieu.
[2020-10-01] MEDS: LORazepam 1 MG TAB PO PRN (18:11)
[2020-10-01] MEDS: traZODone HCL 50 MG TAB PO SCH (20:39)
[2020-10-02] MEDS: PANTOPRAZOLE 40 MG TABLET PO SCH (09:14)
[2020-10-02] MEDS: NICOTINE 14MG/24HR PATCH TRANSDERM SCH (09:14)
[2020-10-02] MEDS: HALOPERIDOL LACTATE 5 MG/ML 1 ML VIAL IM PRN ×2 (09:21→21:35)
--- NOTE | 2020-10-02 12:52 | P.PN ---
Progress Note - Text Progress Note Date: 10/02/20 Interval history: Patient was seen laying in his bed today with his sheets covering his face and entire body and was sleeping. Patient was able to be woken by staff writer and once against acknowledged writers voice and turned to him. He states that he does not feel like getting up out of bed and continued to answer questions mainly by grunting. He denied any overnight complaints. He states that he is feeling tired this morning. He was seen ambulating in the hallways earlier and was polite to staff writer. He denied any auditory or visual hallucinations at this time denied any suicidal or homicidal ideations intent or plan. Mental status exam: General Appearance: Patient appears to be covered with his blankets, stated age is alert, mildly more cooperative today. He continues to have poor hygiene and grooming. Behavior: No agitated behavior. Mildly more cooperative today. Speech: Patient's speech is fluent and nonpressured. Responds mainly with grunting and answer some questions appropriately. Mood/Affect: Patient denies any changes in his mood today as a constricted affect. Suicidality/Homicidality: Denies Perceptions: Does not endorse any delusions or paranoia today. Though content/process: [place], grunting. More verbal today. Memory and concentration: Unable to assess Judgment and insight: poor, particularly mildly Assessment/Plan: Continue with current diagnosis. Patient continues to meet criteria for inpatient psychiatric admission for symptom stabilization and s afety.Patient will be maintained on current psychotropic medication regimen. Patient to receive Haldol IM if he refuses by mouth. Monitor for medication compliance and for any psychotropic medication side effects. Will continue to monitor ongoing response to treatment. Encouraged participation in milieu.
[2020-10-02] MEDS: LORazepam 1 MG TAB PO PRN (13:15)
[2020-10-02] MEDS: traZODone HCL 50 MG TAB PO SCH (21:41)
[2020-10-03] MEDS: NICOTINE 14MG/24HR PATCH TRANSDERM SCH ×2 (08:54→08:59)
[2020-10-03] MEDS: PANTOPRAZOLE 40 MG TABLET PO SCH (08:54)
[2020-10-03] MEDS ORDERED: HALOPERIDOL DECANOATE 50 MG/ML 1 ML VIAL IM SCH (09:30)
[2020-10-03] MEDS ORDERED: QUEtiapine 25 MG TAB PO PRN (12:12)
--- NOTE | 2020-10-03 12:12 | P.PN ---
Progress Note - Text Progress Note Date: 10/03/20 Clinical Problems: Schizoaffective disorder bipolar type, poor compliance with psychiatric treatment, legal problems Interim history: I reviewed the medical record, interviewed the patient and discussed his treatment and treatment plan during team meeting. He came to my office for the interview. He complained of difficulty sleeping and requested a nighttime dose of Seroquel. He is also concerned about returning to detention although and asked if the time in the hospital would be applied towards his sentence. He denied the need for treatment of his mental illness and has been refusing oral Haldol. I explained that I will discontinue the oral Haldol and begin weekly injections of Haldol Decanoate. He attended one therapeutic group and the therapist reported that he was calm, pleasant and cooperative. He slept 7 hours last night. Mental status exam: He presented as a casually groomed thin young male who was pleasant on approach. He made eye contact and appeared to attend to the interview. He had a flat facial expression. He showed psychomotor retardation but no abnormal involuntary movements. Her speech was nonspontaneous and a decreased rate, rhythm and volume. His affect was unreactive. He denied suicidal ideation or wishes. He denied feeling hopeless or helpless. He did not express clear ideas reference, paranoid ideation or delusions. His gait was concrete but his associations were coherent, logical and goal directed. Assessment: He showed no adverse reaction to oral and IM injections of Haldol. Plan: Continue inpatient treatment. Safety precautions. Discontinue Haldol 4 mg twice a day. Begin Haldol decanoate 100 mg weekly for 4 weeks then continue Haldol Decanoate 100 200 mg monthly. Seroquel 25 mg by mouth at bedtime when necessary for sleep. Continue Ativan and/or Haldol when necessary for agitation or aggression. Encourage participation in therapeutic groups and activities. Evaluate clinical status response to treatment daily basis.
[2020-10-03] MEDS: LORazepam 1 MG TAB PO PRN (16:55)
[2020-10-04 06:50] VITALS: BP 128/60; PULSE 73; RESP 16; TEMP 97.7
[2020-10-04] MEDS: PANTOPRAZOLE 40 MG TABLET PO SCH (08:45)
[2020-10-04] MEDS: NICOTINE 14MG/24HR PATCH TRANSDERM SCH ×2 (08:45→08:48)
[2020-10-04] MEDS ORDERED: QUEtiapine 50 MG TAB PO PRN (08:57)
[2020-10-04] MEDS ORDERED: LORazepam 0.5 MG TAB PO SCH (09:00)
--- NOTE | 2020-10-04 11:51 | P.DS ---
Providers Date of admission: 09/28/20 11:55 Attending physician: Herson France MD Consults: 09/28/20 12:22 Consult Physician Routine Consulting Provider: Awilda Nowak Consult Reason/Comments: H&P for mental health admission. Do you want consulting provider notified?: Yes Primary care physician: [facility] Diagnosis(es) (1) Schizoaffective disorder Current Visit: No Status: Chronic Priority: High (2) Poor compliance with medication Current Visit: No Status: Chronic Priority: High (3) Legal problem Current Visit: Yes Status: Chronic Priority: Medium Hospital Course: HISTORY: He is a 20-year-old single male who is well known to this psychiatric unit from his multiple prior admissions. Since his last admission he was incarcerated for violation of probation. He was transferred from assisted with a petition completed by the social science manager and [facility]. He is currently on a 60 day involuntary treatment order that began in August 2020. According to the petition he was delusional and agitated in assisted. He refused to take prescribed psychotropic medications. He told the psychiatric use that he didn't need the medications. He did not keep his aftercare appointments with [facility]. HOSPITAL COURSE: We admitted him to the psychiatric unit under care of this data analyst report writer. We provided a comprehensive biopsychosocial assessment. The information systems consultant biostatistician attempted to complete initial physical exam and medical history but the patient refused to cooperate. He likewise refused blood draws but his urine drug screen was positive for marijuana. We reviewed the assisted formulary. The only long-acting injectable antipsychotics on the assisted formulary were Prolixin and Haldol. Because he is on a involuntary treatment order we administered Haldol IM when he refused oral Haldoll. Once we establish tolerance, we began Haldol Decanoate 100 mg IM weekly as part of a titration schedule. He plan to continue the weekly injections for 4-5 weeks then transitioned to monthly injections. He posed no management problem and had no episodes of behavioral dyscontrol. Her main his room for several days but can on his room and was appropriate in groups (in the past he has always been inappropriate and disruptive in therapeutic groups and activities). MENTAL STATUS ON DISCHARGE: Time of discharge she presented as a tall, thin casually groomed 20-year-old male who was pleasant on approach. He made eye contact and attended to the interview. He had no distinguishing features or prominent physical abnormalities. He had a blunted facial expression. He showed psychomotor retardation but no abnormal involuntary movements. His speech was spontaneous with decreased rate, volume and rhythm. His affect was blunted but stable and appropriate. He denied suicidal ideation or wishes. He denied homicidal ideation. He expressed feelings of helplessness regarding his legal problems and his incarceration. He did not express ideas reference, paranoid ideation or delusions. His thinking was concrete because associations were coherent and logical. He denied hallucinations did not appear to responding to internal stimuli. DISPOSITION: Discharge back to assisted. Continue Haldol Decanoate 100 mg IM weekly; his next injection is due on 10/10/2020. Continue Seroquel 50 mg at bedtime when necessary for sleep. Plan - Discharge Summary Discharge Rx Participant: No New Discharge Prescriptions: New Nicotine 14Mg/24Hr Patch [Habitrol] 1 patch TRANSDERM DAILY patch Haloperidol Decanoate [Haldol D] 0 mg IM Q7DAYS 7 Days #1 vial QUEtiapine [SEROquel] 50 mg PO HS PRN #30 tab PRN Reason: Insomnia Discontinued OLANZapine [ZyPREXA] 20 mg PO HS Discharge Medication List Haloperidol Decanoate [Haldol D] 0 mg IM Q7DAYS 7 Days #1 vial 10/04/20 [Rx] Nicotine 14Mg/24Hr Patch [Habitrol] 1 patch TRANSDERM DAILY patch 10/04/20 [Rx] QUEtiapine [SEROquel] 50 mg PO HS PRN #30 tab 10/04/20 [Rx] Follow up Appointment(s)/Referral(s): Yifan Gutierrez [Other] - 10/04/20 4:00 pm (Intake) [facility] [Primary Care Provider] - 1 Week Patient Instructions/Handouts: How to Stop Smoking (DC) Activity/Diet/Wound Care/Special Instructions: Activity and diet as tolerated. Avoid the use of street drugs and alcohol. Take all medications as prescribed. When you are in need of refills on your medications please contact your medical provider and/or outpatient psychiatrist to have this done. Please go to scheduled outpatient appointment for aftercare treatment. If symptoms return or become worse, call the crisis line at and/or go to the nearest emergency room for evaluation. Discharge Disposition: DC/TRANSFER COURT/LAW
== END 2020-10-04 14:28 | disposition home or self-care (01) | DRG 885 ==
LOC: EC 08:48 → 3MHU 11:55
PROVIDERS: ADMIT Psychiatry & Neurology Psychiatry; ATTEND Psychiatry & Neurology Psychiatry
DX: F25.0 Schizoaffective disorder, bipolar type (principal); Z59.0 Homelessness; F12.10 Cannabis abuse, uncomplicated; F90.9 Attention-deficit hyperactivity disorder, unspecified type; Z20.828 Contact with and (suspected) exposure to other viral communicable diseases; F41.9 Anxiety disorder, unspecified; G47.9 Sleep disorder, unspecified; Z91.19 Patient's noncompliance with other medical treatment and regimen; F17.210 Nicotine dependence, cigarettes, uncomplicated; Z71.6 Tobacco abuse counseling; Z79.899 Other long term (current) drug therapy; Z56.0 Unemployment, unspecified; Z65.3 Problems related to other legal circumstances; Z87.828 Personal history of other (healed) physical injury and trauma; Z98.890 Other specified postprocedural states
CPT/HCPCS: 80306; 82075; 87635; 99284

== ENCOUNTER 2020-10-07 16:10 | Emergency (ER) | payer OTHER ==
[2020-10-07 16:31] VITALS: BP 154/74; PULSE 78; RESP 18; TEMP 99.1
--- NOTE | 2020-10-07 17:54 | ED ---
General Adult HPI - General Chief complaint: Psychiatric Symptoms Stated complaint: EPS Eval Time Seen by Provider: 10/07/20 16:33 Source: patient, RN notes reviewed, old records reviewed Mode of arrival: ambulatory Limitations: no limitations - History of Present Illness Initial comments: 20-year-old male patient to ED. He initially called [facility] requesting a urination. However patient denying any mental health complaints. Denies any suicidal or homicidal ideations. Denies any physical complaints. Systemic: Pt denies fatigue, fever/chills, rash. Pt denies weakness, night sweats, weight loss. Neuro: Pt denies headache, visual disturbances, syncope or pre-syncope. HEENT: Pt denies ocular discharge or irritation, otalgia, rhinorrhea, pharyngitis or notable lymphadenopathy. Cardiopulmonary: Pt denies chest pain, SOB, heart palpitations, dyspnea on exertion. Abdominal/GI: Pt denies abdominal pain, n/v/d. : Pt denies dysuria, burning w/ urination, frequency/urgency. Denies new onset urinary or bowel incontinence. MSK: Pt denies myalgia, loss of strength or function in extremities. Neuro: Pt denies new onset weakness, paresthesias. - Related Data Previous Rx's Medication Instructions Recorded Haloperidol Decanoate [Haldol D] 0 mg IM Q7DAYS 7 Days #1 vial 10/04/20 Nicotine 14Mg/24Hr Patch [Habitrol] 1 patch TRANSDERM DAILY patch 10/04/20 QUEtiapine [SEROquel] 50 mg PO HS PRN #30 tab 10/04/20 Allergies Allergy/AdvReac Type Severity Reaction Status Date / Time No Known Allergies Allergy Verified 10/07/20 16:31 Review of Systems ROS Statement: Those systems with pertinent positive or pertinent negative responses have been documented in the HPI. ROS Other: All systems not noted in ROS Statement are negative. Past Medical History Past Medical History: No Reported History History of Any Multi-Drug Resistant Organisms: None Reported Past Surgical History: No Surgical Hx Reported Additional Past Surgical History / Comment(s): dog bite, plastic surgery to nose Past Anesthesia/Blood Transfusion Reactions: No Reported Reaction Past Psychological History: ADD/ADHD, Anxiety, Bipolar, Depression, Schizophrenia Smoking Status: Current every day smoker - Past Family History Mother Family Medical History: No Reported History Father Family Medical History: No Reported History General Exam - General Exam Comments Initial Comments: Constitutional: NAD, AOX3, Pt has pleasant affect. HEENT: NC/AT, trachea midline, neck supple, no lymphadenopathy. External ears appear normal, without discharge. Mucous membranes moist. Eyes PERRLA, EOM intact. There is no scleral icterus. No pallor noted. Cardiopulmonary: RRR, no murmurs, rubs or gallops, no JVD noted. Lungs CTAB in anterior and posterior garcia. No peripheral edema. Abdominal exam: Abdomen soft and non-distended. Neuro: CN II-XII grossly intact. No nuchal rigidity. MSK: Full active ROM in upper and lower extremities, 5/5 stregnth. Limitations: no limitations Course Vital Signs 10/07/20 16:28 Temperature 99.1 F Pulse Rate 78 Respiratory 18 Rate Blood Pressure 154/74 O2 Sat by Pulse 98 Oximetry Medical Decision Making - Medical Decision Making 20-year-old male patient to ED for psychiatric evaluation. Denies any psychiatric complaints. Vital signs are stable, afebrile. Physical exam negative for acute pathology. Upon evaluation by emergency psychiatric services patient reports that he really just wanted to get some food from the emergency department. She will be discharged will follow-up with his primary care provider and psychiatrist. Case discussed with Dr. Bagley. - Lab Data Lab Results 10/07/20 Range/Units 17:06 Coronavirus (PCR) Not Detected (Not Detectd) Disposition Clinical Impression: Psychiatric disorder Disposition: HOME SELF-CARE Condition: Stable Instructions (If sedation given, give patient instructions): Depression (ED) Additional Instructions: Follow up with PCP tomorrow. Follow up with psychiatrist tomorrow. Return to ED with any worsening symptoms. Is patient prescribed a controlled substance at d/c from ED?: No Referrals: [facility] [Primary Care Provider] - 1-2 days
== END 2020-10-07 18:02 | disposition home or self-care (01) ==
LOC: EC 16:10
DX: Z03.818 Encounter for observation for suspected exposure to other biological agents ruled out (principal); F99 Mental disorder, not otherwise specified; F17.200 Nicotine dependence, unspecified, uncomplicated
CPT/HCPCS: 82075; 87635; 99284

== ENCOUNTER 2020-10-26 16:23 | Inpatient (IN) | payer MEDICAID, OTHER ==
[2020-10-26 17:25] LABS: Amphetamine Screen,Urine Not Detected (NotDetected); Barbiturate Screen,Urine Not Detected (NotDetected); Benzodiazepines Screen,Urine Detected (NotDetected); Cocaine Screen,Urine Not Detected (NotDetected); Methadone Screen, Urine Not Detected (NotDetected); Opiate Screen,Urine Not Detected (NotDetected); Oxycodone Screen, Urine Not Detected (NotDetected); Phencyclidine Screen,Urine Not Detected (NotDetected); Tricyclic Antidepressant,Urine Detected (NotDetected); Urn Cannabinoid Scrn Detected (NotDetected)
--- NOTE | 2020-10-26 18:20 | ED ---
Psych HPI - General Source: patient, police Mode of arrival: ambulatory <Galina Michael - Last Filed: 10/26/20 21:57> <Kerrie Warren - Last Filed: 10/29/20 14:05> - General Chief Complaint: Psychiatric Symptoms Stated Complaint: Ehs Teacher Order Time Seen by Provider: 10/26/20 16:33 - History of Present Illness Initial Comments: Patient is a 20-year-old male with psych history, presenting to the emergency Department by MANNY CROFT with court ordered to dentition. Patient just got out of [facility] today and step dad thought that patient was exhibiting rational symptoms and thought the patient might be "using drugs." Patient denies any suicidal or homicidal thoughts at this time. Patient denies any pain anywhere, denies any fever or chills. He denies any alcohol or drug use today. He states only medicine he's been taking his own prescribed to him. He has no further complaints at this time. (Galina Michael) - Related Data Home Medications Medication Instructions Recorded Confirmed Haloperidol Decanoate [Haldol D] 100 mg IM Q7DAYS 10/26/20 10/26/20 LORazepam [Ativan] 0.5 mg PO BID PRN 10/26/20 10/26/20 Previous Rx's Medication Instructions Recorded Nicotine 14Mg/24Hr Patch [Habitrol] 1 patch TRANSDERM DAILY patch 10/04/20 QUEtiapine [SEROquel] 50 mg PO HS PRN #30 tab 10/04/20 Allergies Allergy/AdvReac Type Severity Reaction Status Date / Time No Known Allergies Allergy Verified 10/26/20 16:32 Review of Systems ROS Other: All systems not noted in ROS Statement are negative. <Galina Michael - Last Filed: 10/26/20 21:57> ROS Other: All systems not noted in ROS Statement are negative. <Kerrie Warren - Last Filed: 10/29/20 14:05> ROS Statement: Those systems with pertinent positive or pertinent negative responses have been documented in the HPI. Past Medical History Past Medical History: No Reported History History of Any Multi-Drug Resistant Organisms: None Reported Past Surgical History: No Surgical Hx Reported Additional Past Surgical History / Comment(s): dog bite, plastic surgery to nose Past Anesthesia/Blood Transfusion Reactions: No Reported Reaction Past Psychological History: ADD/ADHD, Anxiety, Bipolar, Depression, Schizophrenia Smoking Status: Current every day smoker Past Alcohol Use History: None Reported Past Drug Use History: Marijuana - Past Family History Mother Family Medical History: No Reported History Father Family Medical History: No Reported History <Galina Michael - Last Filed: 10/26/20 21:57> General Exam Limitations: no limitations <Galina Michael - Last Filed: 10/26/20 21:57> - General Exam Comments Initial Comments: GENERAL: Patient is well-developed and well-nourished. Patient is nontoxic and in no acute distress. HEAD: Atraumatic, normocephalic. EYES: Pupils equal round and reactive to light, extraocular movements intact, sclera anicteric, conjunctiva are normal. Eyelids were unremarkable. ENT: TMs normal, nares patent, oropharynx clear without exudates. Moist mucous membranes. NECK: Normal range of motion, supple without lymphadenopathy or JVD. LUNGS: Unlabored respirations. Breath sounds clear to auscultation bilaterally and equal. No wheezes rales or rhonchi. HEART: Regular rate and rhythm without murmurs, rubs or gallops. ABDOMEN: Soft, nontender, normoactive bowel sounds. No guarding, no rebound. No masses appreciated. : Deferred MUSCULOSKELETAL: Normal extremities with adequate strength and normal range of motion, no pitting or edema. No clubbing or cyanosis. NEUROLOGICAL: Patient is alert and oriented x 3. Motor and sensory are also intact. Cranial nerves II through XII grossly intact. Symmetrical smile. Normal speech, normal gait. PSYCH: Normal mood, normal affect. SKIN: Warm, Dry, normal turgor, no rashes or lesions noted. (Galina Michael) Course Vital Signs 10/26/20 10/26/20 16:28 16:45 Temperature 98.6 F 98.3 F Pulse Rate 102 H 87 Respiratory 18 16 Rate Blood Pressure 121/72 129/65 O2 Sat by Pulse 97 96 Oximetry Medical Decision Making <Galina Michael - Last Filed: 10/26/20 21:57> <Kerrie Warren - Last Filed: 10/29/20 14:05> - Medical Decision Making Patient is a 20-year-old male with psych history, presenting after a pickup order. He was discharged from [facility] today. He denies any drugs or alcohol today. He denies being suicidal or homicidal. Urine drug screen is positive for tricyclic antidepressants, benzos and marijuana. Patient was e valuated by EPS. Patient will be admitted to psych unit. (Galina Michael) I was available for consultation in the emergency department. The history and physical exam were done by the midlevel provider. I was consulted for this patients care. I reviewed the case with the midlevel provider and based on their presentation of the patient, I agree with the assessment, medical decision making and plan of care as documented. Chart was dictated using [employer] dictation software. Attempts were made to correct any dictation errors however some typographical errors may persist. Patient was seen during a national state of emergency due to the Covid-19 pandemic. (Kerrie Warren) - Lab Data Lab Results 10/26/20 Range/Units 17:02 Urine Opiates Screen Not Detected (NotDetected) Ur Oxycodone Screen Not Detected (NotDetected) Urine Methadone Screen Not Detected (NotDetected) Ur Propoxyphene Screen Not Detected (NotDetected) Ur Barbiturates Screen Not Detected (NotDetected) U Tricyclic Antidepress Detected H (NotDetected) Ur Phencyclidine Scrn Not Detected (NotDetected) Ur Amphetamines Screen Not Detected (NotDetected) U Methamphetamines Scrn Not Detected (NotDetected) U Benzodiazepines Scrn Detected H (NotDetected) Urine Cocaine Screen Not Detected (NotDetected) U Marijuana (THC) Screen Detected H (NotDetected) Disposition Decision Date: 10/26/20 Decision Time: 21:59 <Galina Michael - Last Filed: 10/26/20 21:57> <Kerrie Warren - Last Filed: 10/29/20 14:05> Clinical Impression: Suicidal ideation Disposition: TRANSFER TO PSYCH HOSP/UNIT Condition: Stable
[2020-10-26] MEDS ORDERED: ACETAMINOPHEN TAB 325 MG TAB PO PRN (21:42)
[2020-10-26] MEDS ORDERED: MAG HYDROX/AL HYDROX/SIMETH 30 ML CUP PO PRN (21:42)
[2020-10-26] MEDS ORDERED: LORazepam 1 MG TAB PO PRN (21:42)
[2020-10-26] MEDS ORDERED: MAGNESIUM HYDROXIDE 2,400 MG/10 ML CUP PO PRN (21:42)
[2020-10-26] MEDS ORDERED: haloperidoL 5 MG TAB PO PRN (21:53)
[2020-10-26] MEDS ORDERED: LORazepam 2 MG/ML INJ IM PRN (21:53)
[2020-10-26] MEDS ORDERED: HALOPERIDOL LACTATE 5 MG/ML 1 ML VIAL IM PRN (21:53)
[2020-10-26] MEDS ORDERED: HALOPERIDOL DECANOATE 100 MG/ML 1 ML VIAL IM SCH (22:00)
[2020-10-26] MEDS: NICOTINE 7MG/24HR PATCH TRANSDERM SCH (22:34)
--- NOTE | 2020-10-26 23:46 | P.PN ---
Progress Note - Text Progress Note Date: 10/26/20 patient was sleeping and could not be evaluated at this time
[2020-10-27 00:33] VITALS: RESP 16
[2020-10-27] MEDS: NICOTINE 7MG/24HR PATCH TRANSDERM SCH (08:38)
[2020-10-27] MEDS ORDERED: HALOPERIDOL DECANOATE 100 MG/ML 1 ML VIAL IM SCH (12:00)
--- NOTE | 2020-10-27 12:10 | P.HP ---
Psychiatric H&P - . H&P Date: 10/27/20 History & Physical: IDENTIFYING DATA: He is a 20-year-old single male [facility] from [facility] with a petition completed by the trail maintenance worker at [facility]. He is currently on a 160 day involuntary treatment order that began September 08 2020. HISTORY OF PRESENT ILLNESS: He is well known to this service from prior admissions. This is his sixth admission this year. He was discharged from [facility] on 10/24/2020 The police brought him to the ED from [facility]. According to their report he had threatened to kill his stepfather. The mobile crisis team was also present and reported that he had threatened other people at [facility]. He admitted to threatening his stepfather because his first stepfather had threatened him. He denied that he was experiencing auditory, visual or olfactory hallucinations. He denied ideas reference, thought insertion, thought broadcasting or thought control. He did not express clear organized delusional belief. He denied feeling depressed or having thoughts of or suicide. He denied current homicidal ideation. I spoke to the clinical director at [facility] because of the multiple psychiatric hospitalizations. The clinical director was unaware of the extent of the hospitalizations once he refused to chart recommended a referral to their ACT team as well as transfer his care to a psychiatrist (he was under the care of one of the nurse practitioners). PAST PSYCHIATRIC HISTORY: We last discharged him on 10/04/2020 on Haldol 100 mg IM weekly. [facility] and [facility] for "a [facility]" then mental health arranged for a room and board. He was at room and board for "a couple of days" then admitted to [facility]. Nurse confirmed that he received an injection of Prolixin Decanoate at [facility] on 10/15/2020. PAST MEDICAL HISTORY: No major medical problems. ALLERGIES: NO KNOWN DRUG ALLERGIES SUBSTANCE USE HISTORY: He has a history of marijuana use and his UDS was positive for marijuana. FAMILY PSYCHIATRIC/SUBSTANCE USE HISTORY: Unknown LEGAL HISTORY: [facility] is a [facility] and [facility] once his [facility] treatment is completed. He has a history of legal problems beginning in adolescence. He was involved in the juvenile system. He is open charges of assault. SOCIAL HISTORY: He is raised by his mother and stepfather. He completed school only to the 10th grade. His history of suspensions but denied school expulsions. He lived with various family members due to his behavioral problems. He has had periods of homelessness. He has no income and currently is homeless although he alleges that she can return to live with his mother as long as she continues with outpatient mental health treatment. MENTAL STATUS EXAM: He presented as a tall thin 20-year-old male was pleasant on approach. He made eye contact and attended to the interview. He had no distinguishing features or prominent physical abnormalities. He had a blunted facial expression. He was alert and oriented to person, place and time. He has psychomotor retardation but no abnormal involuntary movements. His speech was spontaneous with decreased rate, volume and rhythm. His affect was flat. He denied suicidal ideation, wishes or homicidal ideation. He did not express feelings of hopelessness, helplessness or worthlessness. He ruminated about his living situation and plans to return to live with his brother. He did not express ideas reference, paranoid ideation or delusional thoughts. His thinking was concrete but his associations were coherent. He denied hallucinations did not appear to be responding to internal stimuli. Global impression of intellect is average. He has limited understanding awareness of his illness and need for treatment. STRENGTHS: Good physical health, engagement with community mental health services WEAKNESSES: Chronic and persistent mental illness, poor problem-solving skills, poor anger management skills, history of poor compliance with mental health treatment. IMPRESSION: He is a 20-year-old single male readmitted to the psychiatric unit 2 days after discharge from another psychiatric hospital. He is chronically and persistently mentally ill. The admission occurred after a behavioral outburst that [facility] where he threatened his step father and, apparently, staff at [facility]. He is had multiple psychiatric hospitalizations here and that other facilities. The best be treated inpatient basis with combination of psychopharmacology and multimodal therapy. She resumed treatment with long acting injectable antipsychotic medications. PRINCIPLE DIAGNOSIS: Schizoaffective disorder bipolar type, poor compliance with psychiatric treatment, physical problems RECOMMENDATION: Admitted to the psychiatric unit. Safety precautions. Consult medicine for initial physical exam and medical history. print finishing worker completed initial psychosocial assessment coordinate discharge and aftercare. Haldol Decanoate 100 mg IM every 7 days. Haldol and/or Ativan when necessary for agitation or aggression. He would benefit from close and intense mental health services as well as continuing with long acting injectable antipsychotic medications. Encourage participation in therapeutic groups and activities. Evaluate clinical status response to treatment on a daily basis. Allergies Allergy/AdvReac Type Severity Reaction Status Date / Time No Known Allergies Allergy Verified 10/26/20 16:32 Vital Signs Temp 97.6 F 10/27/20 02:47 Pulse 92 10/27/20 02:47 Resp 16 10/27/20 02:47 BP 122/79 10/27/20 02:47 Pulse Ox 97 10/26/20 22:45 Intake & Output 10/26/20 10/27/20 10/27/20 18:59 06:59 18:59 Weight 72.575 kg 70.8 kg Laboratory Last Values Urine Opiates Screen Not Detected (NotDetected) 10/26/20 17:02 Ur Oxycodone Screen Not Detected (NotDetected) 10/26/20 17:02 Urine Methadone Screen Not Detected (NotDetected) 10/26/20 17:02 Ur Propoxyphene Screen Not Detected (NotDetected) 10/26/20 17:02 Ur Barbiturates Screen Not Detected (NotDetected) 10/26/20 17:02 U Tricyclic Antidepress Detected (NotDetected) H 10/26/20 17:02 Ur Phencyclidine Scrn Not Detected (NotDetected) 10/26/20 17:02 Ur Amphetamines Screen Not Detected (NotDetected) 10/26/20 17:02 U Methamphetamines Scrn Not Detected (NotDetected) 10/26/20 17:02 U Benzodiazepines Scrn Detected (NotDetected) H 10/26/20 17:02 Urine Cocaine Screen Not Detected (NotDetected) 10/26/20 17:02 U Marijuana (THC) Screen Detected (NotDetected) H 10/26/20 17:02 10/27/20 11:50
--- NOTE | 2020-10-27 23:31 | P.CONS ---
History of Present Illness - Reason for Consult Consult date: 10/27/20 - History of Present Illness Patient is a 20-year-old male with a PMH of bipolar disorder who was brought in under police custody after he was petitioned for erratic behavior. Patient was admitted to the mental health unit where he was seen and evaluated earlier today. The patient reported feeling well and denied active complaints. He reports using marijuana and smoking 1-2 cigarettes per day but denied any additional drug use. He denied chest pain, shortness of breath, fever, chills, nausea, vomiting, abdominal pain, diarrhea. Review of Systems Pertinent positives and negatives as discussed in HPI, a complete review of systems was performed and all other systems are negative. Past Medical History Past Medical History: No Reported History History of Any Multi-Drug Resistant Organisms: None Reported Past Surgical History: No Surgical Hx Reported Additional Past Surgical History / Comment(s): dog bite, plastic surgery to nose Past Anesthesia/Blood Transfusion Reactions: No Reported Reaction Past Psychological History: ADD/ADHD, Anxiety, Bipolar, Depression, Schizophrenia Smoking Status: Current every day smoker Past Alcohol Use History: None Reported Past Drug Use History: Marijuana - Past Family History Mother Family Medical History: No Reported History Father Family Medical History: No Reported History Medications and Allergies Home Medications Medication Instructions Recorded Confirmed Type Nicotine 14Mg/24Hr Patch [Habitrol] 1 patch TRANSDERM DAILY patch 10/04/20 10/26/20 Rx QUEtiapine [SEROquel] 50 mg PO HS PRN #30 tab 10/04/20 10/26/20 Rx Haloperidol Decanoate [Haldol D] 100 mg IM Q7DAYS 10/26/20 10/26/20 History LORazepam [Ativan] 0.5 mg PO BID PRN 10/26/20 10/26/20 History Allergies Allergy/AdvReac Type Severity Reaction Status Date / Time No Known Allergies Allergy Verified 10/26/20 16:32 Physical Exam Vitals: Vital Signs Temp Pulse Resp BP 10/27/20 19:38 97.4 F L 10/27/20 13:21 99.2 F 10/27/20 02:47 97.6 F 92 16 122/79 General: non toxic, no distress, appears at stated age, normal weight Derm: no unusual rashes/lesions no unusual ecchymoses, warm, dry Head: atraumatic, normocephalic, symmetric Eyes: EOMI, no lid lag, anicteric sclera, pupils equal round reactive to light ENT: Nose and ears atraumatic, no thrush, no pharyngeal erythema Neck: No thyromegaly, no cervical lymphadenopathy, trachea midline, supple Mouth: no lip lesion, mucus membranes moist Cardiovascular: S1S2 reg, no murmur, positive posterior tibial pulse bilateral, no edema, capillary refill less than 2 seconds Lungs: CTA bilateral, no rhonchi, no rales , no accessory muscle use Abdominal: soft, nontender to palpation, no guarding, no appreciable organomegaly, normal bowel sounds Ext: no gross muscle atrophy, muscle strength 5 out of 5 in all 4 extremities grossly, no contractures, Neuro: CN II-XI grossly intact, light touch intact all 4 extremities, finger to nose within normal limits, Psych: Alert, oriented, appropriate affect Assessment and Plan Plan: Marijuana abuse, tobacco abuse -Advised on the importance of cessation Bipolar disorder -As per psychiatry Thank you for allowing us to participate in the care of this patient. We will follow peripherally. Do not hesitate to contact us with questions. Someone can be reached from the [facility] hospitalist group at all hours of the day at [phone].
[2020-10-28] MEDS: NICOTINE 7MG/24HR PATCH TRANSDERM SCH (08:54)
--- NOTE | 2020-10-28 11:12 | P.PN ---
Progress Note - Text Progress Note Date: 10/28/20 Clinical Problems: Schizoaffective disorder bipolar type, poor compliance with psychiatric treatment, cannabis use Interim history: I reviewed the medical record, interviewed the patient and discuss his treatment and treatment plan during team meeting. He consented to continue Haldol Decanoate 100 mg weekly and receives an injection yesterday. He had no episodes of behavioral dyscontrol. He denied problems or concerns other than wishing to live with his mother after discharge. athletic turf worker left a message but has not been able to speak with his mother to confirm. He attends therapeutic groups intermittently. He slept 5 hours last night. Mental status exam: He presented as a casually groomed, 20-year-old male who was pleasant on approach. He made eye contact and appeared to attend to the interview. He had a blunted facial expression. He showed slight psychomotor retardation but no abnormal involuntary movements. His speech was spontaneous with decreased rate and rhythm. His affect was blunted, stable and appropriate. He denied suicidal ideation or wishes. He denied homicidal ideation. He denied that he has homicidal thoughts towards his stepfather. He denied feeling hopeless, helpless or worthless. He ruminated about returning home to live with his mother. He did not express ideas reference, paranoid ideation delusions. His thinking was concrete but his associations were coherent, logical and goal directed. He denied hallucinations and did not appear to responding to internal stimuli. Assessment: He has had no episodes of behavioral dyscontrol, no periods of agitation or inappropriate expressions of anger since admission. He has not made threats towards staff, family, community providers or other patients. His been compliant with treatment. He would greatly benefit from closer outpatient supervision and I concur with the plan to refer him for the ACT program Plan: Continue inpatient treatment. Safety precautions. Continue Haldol decanoate 100 mg IM weekly. athletic turf worker to clarify discharge plan and coordinate discharge and aftercare services with [facility]. Encouraged continued participation in therapeutic groups and activities. Evaluate clinical status response to treatment daily basis.
[2020-10-28 20:33] LABS: Amorphous Sediment,Urine Moderate /hpf; Appearance,Urine Turbid (Clear); Bilirubin,Urine Negative (Negative); Blood,Urine Negative (Negative); Color,Urine Yellow; Glucose,Urine (UA) Negative (Negative); Ketones,Urine Negative (Negative); Leukocyte Esterase,Urine Negative (Negative); Mucus,Urine Rare /hpf; Nitrite,Urine Negative (Negative); Protein,Urine Negative (Negative); Urobilinogen,Urine <2.0 mg/dL (<2.0); WBC,Urine 1 /hpf (0-5)
[2020-10-29] MEDS: NICOTINE 7MG/24HR PATCH TRANSDERM SCH (09:31)
[2020-10-29 09:34] VITALS: BP 130/86; PULSE 118
--- NOTE | 2020-10-29 13:22 | P.PN ---
Progress Note - Text Progress Note Date: 10/29/20 Clinical Problems: Schizoaffective disorder bipolar type, poor compliance with psychiatric treatment, cannabis use Interim history: I reviewed the medical record and interviewed the patient. He apologized for his behavior last night. He attributed to a "misunderstanding" with one of the nursing aides. According to record he became agitated and sexually inappropriate yesterday evening. He could not be redirected and confronted when approached by the male nurse. With the assistance of security nursing administered Haldol 5 mg and Ativan 1 mg IM. He attends few therapeutic groups and activities. He slept 6 hours last night. Mental status exam: He presented as a casually groomed, 20-year-old male who was pleasant on approach. He made eye contact and appeared to attend to the interview. He had a blunted facial expression. He showed slight psychomotor retardation but no abnormal involuntary movements. His speech was spontaneous with decreased rate and rhythm. His affect was blunted, stable and appropriate. He denied suicidal ideation or wishes. He denied homicidal ideation. He denied that he has homicidal thoughts towards his stepfather. He denied feeling hopeless, helpless or worthless. He ruminated about returning home to live with his mother. He did not express ideas reference, paranoid ideation delusions. His thinking was concrete but his associations were coherent, logical and goal directed. He denied hallucinations and did not appear to responding to internal stimuli. Assessment: He is having behavioral dyscontrol and inappropriate behavior requiring intramuscular administration of medications. Plan: Continue inpatient treatment. Safety precautions. Continue Haldol decanoate 100 mg IM weekly. Continue Haldol and/or Ativan IM or by mouth for agitation or aggression. bottom worker to clarify discharge plan and coordinate discharge and aftercare services with [facility]. Encouraged continued participation in therapeutic groups and activities. Evaluate clinical status response to treatment daily basis.
[2020-10-30] MEDS: NICOTINE 7MG/24HR PATCH TRANSDERM SCH (08:43)
--- NOTE | 2020-10-30 13:16 | P.PN ---
Progress Note - Text Progress Note Date: 10/30/20 Clinical Problems: Schizoaffective disorder bipolar type, poor compliance with psychiatric treatment, cannabis use Interim history: I reviewed the medical record and interviewed the patient. He denied problems and concern was then discharged. He continues to maintain that he may return to his mother's home. curtain worker made 2 attempts to speak with his mother to confirm. He's had no episodes of behavioral dyscontrol or inappropriate behavior over the last 24 hours. He attends few therapeutic groups and activities. He slept 6 hours last night. Mental status exam: He presented as a casually groomed, 20-year-old male who was pleasant on approach. He made eye contact and appeared to attend to the interview. He had a blunted but bright facial expression. He showed slight psychomotor retardation but no abnormal involuntary movements. His speech was spontaneous with decreased rate and rhythm. His affect was blunted, stable and appropriate. He denied suicidal ideation or wishes. He denied homicidal ideation. He denied homicidal thoughts towards his stepfather. He denied feeling hopeless, helpless or worthless. He ruminated about returning home to live with his mother. He did not express ideas reference, paranoid ideation delusions. His thinking was concrete but his associations were coherent, logical and goal directed. He denied hallucinations and did not appear to responding to internal stimuli. Assessment: He's had no episodes of behavioral dyscontrol over the last 24 hours Plan: Continue inpatient treatment. Safety precautions. Continue Haldol decanoate 100 mg IM weekly. Continue Haldol and/or Ativan IM or by mouth for agitation or aggression. curtain worker to clarify discharge plan and coordinate discharge and aftercare services with [facility]. Encouraged continued participation in therapeutic groups and activities. Evaluate clinical status response to treatment daily basis.
[2020-10-31] MEDS: NICOTINE 7MG/24HR PATCH TRANSDERM SCH (08:51)
--- NOTE | 2020-10-31 11:26 | P.PN ---
Progress Note - Text Progress Note Date: 10/31/20 Clinical Problems: Schizoaffective disorder bipolar type, poor compliance with psychiatric treatment, cannabis use Interim history: I reviewed the medical record, interviewed the patient and discuss his treatment and treatment plan during team meeting. He is anxious to be discharged and approached me several times today about discharge. Each time I explained that we need to verify whether he can return to live with his mother. The social services assistant has made 2 attempts to reach her. She has not returned our calls. The social services assistant will continue reaching out to her today. I explained that as soon as we confirmed that he may return to live with her we will discharge him otherwise we will have to arrange alternative placement. He is had no episodes of behavioral dyscontrol since Saturday. He is not received when necessary's for agitation, aggression or inappropriate behavior. He inter mittently attends therapeutic groups and does not disrupt groups when he attends. Mental status exam: He presented as a casually groomed, 20-year-old male who was pleasant on approach. He made eye contact and appeared to attend to the interview. He had a blunted but bright facial expression. He showed slight psychomotor retardation but no abnormal involuntary movements. His speech was spontaneous with decreased rate and rhythm. His affect was blunted, stable and appropriate. He denied suicidal ideation or wishes. He denied homicidal ideation. He denied homicidal thoughts towards his stepfather. He denied feeling hopeless, helpless or worthless. He ruminated about returning home to live with his mother. He did not express ideas reference, paranoid ideation delusions. His thinking was concrete but his associations were coherent, logical and goal directed. He denied hallucinations and did not appear to responding to internal stimuli. Assessment: He's had no episodes of behavioral dyscontrol over the last 72 hours Plan: Continue inpatient treatment. Safety precautions. Continue Haldol decanoate 100 mg IM weekly. Continue Haldol and/or Ativan IM or by mouth for agitation or aggression. material requirements worker to clarify discharge plan and coordinate discharge and aftercare services with [facility]. Encouraged continued participation in therapeutic groups and activities. Evaluate clinical status response to treatment daily basis.
[2020-11-01] MEDS: NICOTINE 7MG/24HR PATCH TRANSDERM SCH (08:11)
--- NOTE | 2020-11-01 11:10 | P.DS ---
Providers Date of admission: 10/26/20 21:30 Attending physician: Herson France MD Consults: 10/26/20 21:42 Consult Physician Routine Consulting Provider: [facility] Consult Reason/Comments: H and P Do you want consulting provider notified?: Yes Primary care physician: [facility] Diagnosis(es) (1) Schizoaffective disorder, bipolar type Current Visit: No Status: Chronic Priority: High (2) Poor compliance with medication Current Visit: No Status: Chronic Priority: High (3) Legal problem Current Visit: No Status: Chronic Priority: Low (4) Cannabis use disorder, mild, abuse Current Visit: No Status: Chronic Priority: Medium Hospital Course: HISTORY: He is a 20-year-old single male transferred from [facility] with a petition completed by the social work assistant. He is currently on a 160 day involuntary treatment order that began September 08 2020. He is well known to this service from prior admissions. This is his sixth admission to this unit alone this year. He was discharged from [facility] on 10/24/2020 The police brought him to the ED from [facility]. According to their report he had threatened to kill his stepfather. The mobile crisis team was also present and reported that he had threatened staff at [facility]. He admitted to threatening his stepfather because his first stepfather had threatened him. He denied that he was experiencing auditory, visual or olfactory hallucinations. He denied ideas reference, thought insertion, thought broadcasting or thought control. He did not express clear organized delusional belief. He denied feeling depressed or having thoughts of or suicide. He denied current homicidal ideation. I spoke to the clinical director at [facility] because of the multiple psychiatric hospitalizations. The clinical director was unaware of the extent of the hospitalizations once he refused to chart recommended a referral to their ACT team as well as transfer his care to a psychiatrist (he was under the care of one of the nurse practitioners). We last discharged him on 10/04/2020 on Haldol 100 mg IM weekly. He was on retirement hold and we discharged him back to retirement. He stated he was in [facility] "a [facility]" [facility]. He was at room and board for "a couple of days" then admitted to [facility]. Nurse confirmed that he received an injection of Prolixin Decanoate at [facility] on 10/15/2020. HOSPITAL COURSE: We admitted him to the psychiatric unit voluntarily under the care of this life insurance underwriter. We provided a comprehensive biopsychosocial assessment. The actuarial consultant associate professor of forestry completed initial physical exam and medical history and did not diagnose major medical condition. Her resume treatment with Haldol decanoate 100 mg weekly and production superintendent hydro and an injection on 10/27/2021. He had one episodes of inappropriate behavior resulting in administration of IM medications . He had no episodes of aggressive behavior and did not require seclusion or restraint during this admission. He participated in therapeutic groups and activities. He was preoccupied with discharge throughout the hospitalization. He alleged that his mother invited him to return home. particleboard factory worker spoke with his mother confirmed that she invited him home. He met with his ACT team prior to discharge. MENTAL STATUS ON DISCHARGE: He presented as a tall thin, sick groomed 20-year-old male who was pleasant on approach. He made eye contact and attended to the interview. He had no distinguishing features or prominent physical abnormalities. He had a flat facial expression. He showed psychomotor retardation but no abnormal involuntary movements. Her speech was spontaneous slow with decreased rhythm. His affect was blunted but stable. He denied suicidal ideation, wishes or homicidal ideation. Denied feeling hopeless, helpless or worthless. He did not express ideas reference, paranoid ideation or delusions. His thinking was concrete but his associations were coherent, logical and goal directed. He denied hallucinations did not appear to responding to internal stimuli. DISPOSITION: He was discharged to his mother's home. His discharge medication was Haldol decanoate 100 mg weekly; business injection is due on 11/03/2020. He will receive ACT case management services. Patient Condition at Discharge: Stable Plan - Discharge Summary New Discharge Prescriptions: Continue Nicotine 14Mg/24Hr Patch [Habitrol] 1 patch TRANSDERM DAILY patch Changed Haloperidol Decanoate [Haldol D] 100 mg IM Q7DAYS #1 vial Discontinued QUEtiapine [SEROquel] 50 mg PO HS PRN #30 tab PRN Reason: Insomnia LORazepam [Ativan] 0.5 mg PO BID PRN PRN Reason: Anxiety Discharge Medication List Nicotine 14Mg/24Hr Patch [Habitrol] 1 patch TRANSDERM DAILY patch 10/04/20 [Rx] Haloperidol Decanoate [Haldol D] 100 mg IM Q7DAYS #1 vial 11/01/20 [Rx] Follow up Appointment(s)/Referral(s): [facility] [Outside] - 11/03/20 11:00 am (11-03-20 @ 11:00 with James Torres by phone 11-04-20 @ 12:00 with MORTGAGE SERVICING SPECIALIST Jovita Maki at [facility] office) [facility],Nehsa Morales [Primary Care Provider] - 1-2 days Patient Instructions/Handouts: Depression (DC) Activity/Diet/Wound Care/Special Instructions: Activity and diet as tolerated. Avoid the use of street drugs and alcohol. Take all medications as prescribed. When you are in need of refills on your medications please contact your medical provider and/or outpatient psychiatrist to have this done. Please go to scheduled outpatient appointment for aftercare treatment. If symptoms return or become worse, call the crisis line at and/or go to the nearest emergency room for evaluation. Discharge Disposition: HOME SELF-CARE
[2020-11-01 11:38] VITALS: TEMP 98.1
== END 2020-11-01 15:30 | disposition home or self-care (01) | DRG 885 ==
LOC: EC 16:23 → 3MHU 21:30
PROVIDERS: ADMIT Psychiatry & Neurology Psychiatry; ATTEND Psychiatry & Neurology Psychiatry
DX: F25.0 Schizoaffective disorder, bipolar type (principal); R45.851 Suicidal ideations; Z91.14 Patient's other noncompliance with medication regimen; F12.10 Cannabis abuse, uncomplicated; F90.9 Attention-deficit hyperactivity disorder, unspecified type; F41.9 Anxiety disorder, unspecified; F17.210 Nicotine dependence, cigarettes, uncomplicated; Z79.899 Other long term (current) drug therapy; Z56.0 Unemployment, unspecified; Z71.51 Drug abuse counseling and surveillance of drug abuser; Z65.3 Problems related to other legal circumstances; Z87.828 Personal history of other (healed) physical injury and trauma; Z98.890 Other specified postprocedural states
CPT/HCPCS: 80306; 81001; 82075; 99285

== ENCOUNTER 2020-11-28 22:31 | Emergency (ER) | payer OTHER ==
[2020-11-28 22:39] VITALS: RESP 18
--- NOTE | 2020-11-28 22:52 | ED ---
Psych HPI - General Chief Complaint: Psychiatric Symptoms Stated Complaint: Mental health Time Seen by Provider: 11/28/20 22:41 Source: patient, police, RN notes reviewed, old records reviewed, Caregiver Mode of arrival: ambulatory Limitations: no limitations, physical limitation - History of Present Illness Initial Comments: This is a 20-year-old male who is unable to participate in history of present illness. Patient specific petition by his mother for mental health evaluation. Patient has history of mental health and mental illness but is on undergo a recent increase change of mental status MD Complaint: altered mental status -: days(s) Associated Psychiatric Symptoms: none History of same: Yes Quality: constant Improves With: none Worsens With: none Associated Symptoms: denies other symptoms If Self Harm: admits thoughts of self harm - Related Data Home Medications Medication Instructions Recorded Confirmed Benztropine Mesylate [Cogentin] 2 mg PO BID PRN 11/28/20 11/28/20 Previous Rx's Medication Instructions Recorded Nicotine 14Mg/24Hr Patch [Habitrol] 1 patch TRANSDERM DAILY patch 10/04/20 Haloperidol Decanoate [Haldol D] 100 mg IM Q7DAYS #1 vial 11/01/20 Allergies Allergy/AdvReac Type Severity Reaction Status Date / Time No Known Allergies Allergy Verified 11/28/20 23:16 Review of Systems ROS Statement: Those systems with pertinent positive or pertinent negative responses have been documented in the HPI. ROS Other: All systems not noted in ROS Statement are negative. Past Medical History Past Medical History: No Reported History History of Any Multi-Drug Resistant Organisms: None Reported Past Surgical History: No Surgical Hx Reported Additional Past Surgical History / Comment(s): dog bite, plastic surgery to nose Past Anesthesia/Blood Transfusion Reactions: No Reported Reaction Past Psychological History: ADD/ADHD, Anxiety, Bipolar, Depression, Schizophrenia Smoking Status: Current every day smoker Past Alcohol Use History: Occasional Past Drug Use History: Marijuana - Past Family History Mother Family Medical History: No Reported History Father Family Medical History: No Reported History General Exam Limitations: altered mental status General appearance: alert, in no apparent distress Head exam: Present: atraumatic, normocephalic, normal inspection Eye exam: Present: normal appearance, PERRL, EOMI. Absent: scleral icterus, conjunctival injection, periorbital swelling ENT exam: Present: normal exam, mucous membranes moist Neck exam: Present: normal inspection. Absent: tenderness, meningismus, lymphad enopathy Respiratory exam: Present: normal lung sounds bilaterally. Absent: respiratory distress, wheezes, rales, rhonchi, stridor Cardiovascular Exam: Present: regular rate, normal rhythm, normal heart sounds. Absent: systolic murmur, diastolic murmur, rubs, gallop, clicks GI/Abdominal exam: Present: soft, normal bowel sounds. Absent: distended, tenderness, guarding, rebound, rigid Extremities exam: Present: normal inspection, full ROM, normal capillary refill. Absent: tenderness, pedal edema, joint swelling, calf tenderness Back exam: Present: normal inspection Neurological exam: Present: alert, oriented X3, CN II-XII intact Psychiatric exam: Present: normal affect, normal mood Skin exam: Present: warm, dry, intact, normal color. Absent: rash Course Vital Signs 11/28/20 22:34 Temperature 98.8 F Pulse Rate 105 H Respiratory 18 Rate Blood Pressure 146/82 O2 Sat by Pulse 97 Oximetry - Reevaluation(s) Reevaluation #1: 11/29/20 06:20 Medical record is reviewed Reevaluation #2: 11/29/20 06:20 Patient is seen and evaluated by psychiatry here in the ER deemed needed for more psychiatric treatment Reevaluation #3: 11/29/20 06:21 Patient is petition by his mother Medical Decision Making - Medical Decision Making 20 male to the ER for evaluation psychiatric evaluation petition by mother will be admitted for inpatient psychiatric evaluation and treatment - Lab Data Result diagrams: 11/29/20 04:35 11/29/20 04:35 Lab Results 11/29/20 11/29/20 11/29/20 Range/Units 03:35 04:35 04:35 WBC 9.2 (3.8-10.6) k/uL RBC 5.10 (4.30-5.90) m/uL Hgb 15.4 (13.0-17.5) gm/dL Hct 44.5 (39.0-53.0) % MCV 87.2 (80.0-100.0) fL MCH 30.2 (25.0-35.0) pg MCHC 34.6 (31.0-37.0) g/dL RDW 12.3 (11.5-15.5) % Plt Count 235 (150-450) k/uL MPV 6.6 Neutrophils % 70 % Lymphocytes % 20 % Monocytes % 7 % Eosinophils % 0 % Basophils % 1 % Neutrophils # 6.4 (1.3-7.7) k/uL Lymphocytes # 1.8 (1.0-4.8) k/uL Monocytes # 0.6 (0-1.0) k/uL Eosinophils # 0.0 (0-0.7) k/uL Basophils # 0.1 (0-0.2) k/uL Sodium 138 (137-145) mmol/L Potassium 4.0 (3.5-5.1) mmol/L Chloride 102 (98-107) mmol/L Carbon Dioxide 25 (22-30) mmol/L Anion Gap 11 mmol/L BUN 15 (9-20) mg/dL Creatinine 0.76 (0.66-1.25) mg/dL Est GFR (CKD-EPI)AfAm >90 (>60 ml/min/1.73 sqM) Est GFR (CKD-EPI)NonAf >90 (>60 ml/min/1.73 sqM) Glucose 100 H (74-99) mg/dL Calcium 9.8 (8.4-10.2) mg/dL Total Bilirubin 1.6 H (0.2-1.3) mg/dL AST 18 (17-59) U/L ALT 10 (4-49) U/L Alkaline Phosphatase 55 (38-126) U/L Total Protein 7.7 (6.3-8.2) g/dL Albumin 4.9 (3.5-5.0) g/dL Urine Opiates Screen Not Detected (NotDetected) Ur Oxycodone Screen Not Detected (NotDetected) Urine Methadone Screen Not Detected (NotDetected) Ur Propoxyphene Screen Not Detected (NotDetected) Ur Barbiturates Screen Not Detected (NotDetected) U Tricyclic Antidepress Not Detected (NotDetected) Ur Phencyclidine Scrn Not Detected (NotDetected) Ur Amphetamines Screen Not Detected (NotDetected) U Methamphetamines Scrn Not Detected (NotDetected) U Benzodiazepines Scrn Not Detected (NotDetected) Urine Cocaine Screen Not Detected (NotDetected) U Marijuana (THC) Screen Detected H (NotDetected) Coronavirus (PCR) (Not Detectd) 11/29/20 Range/Units 04:35 WBC (3.8-10.6) k/uL RBC (4.30-5.90) m/uL Hgb (13.0-17.5) gm/dL Hct (39.0-53.0) % MCV (80.0-100.0) fL MCH (25.0-35.0) pg MCHC (31.0-37.0) g/dL RDW (11.5-15.5) % Plt Count (150-450) k/uL MPV Neutrophils % % Lymphocytes % % Monocytes % % Eosinophils % % Basophils % % Neutrophils # (1.3-7.7) k/uL Lymphocytes # (1.0-4.8) k/uL Monocytes # (0-1.0) k/uL Eosinophils # (0-0.7) k/uL Basophils # (0-0.2) k/uL Sodium (137-145) mmol/L Potassium (3.5-5.1) mmol/L Chloride (98-107) mmol/L Carbon Dioxide (22-30) mmol/L Anion Gap mmol/L BUN (9-20) mg/dL Creatinine (0.66-1.25) mg/dL Est GFR (CKD-EPI)AfAm (>60 ml/min/1.73 sqM) Est GFR (CKD-EPI)NonAf (>60 ml/min/1.73 sqM) Glucose (74-99) mg/dL Calcium (8.4-10.2) mg/dL Total Bilirubin (0.2-1.3) mg/dL AST (17-59) U/L ALT (4-49) U/L Alkaline Phosphatase (38-126) U/L Total Protein (6.3-8.2) g/dL Albumin (3.5-5.0) g/dL Urine Opiates Screen (NotDetected) Ur Oxycodone Screen (NotDetected) Urine Methadone Screen (NotDetected) Ur Propoxyphene Screen (NotDetected) Ur Barbiturates Screen (NotDetected) U Tricyclic Antidepress (NotDetected) Ur Phencyclidine Scrn (NotDetected) Ur Amphetamines Screen (NotDetected) U Methamphetamines Scrn (NotDetected) U Benzodiazepines Scrn (NotDetected) Urine Cocaine Screen (NotDetected) U Marijuana (THC) Screen (NotDetected) Coronavirus (PCR) Not Detected (Not Detectd) Disposition Clinical Impression: Depression, Suicidal ideation, Schizoaffective disorder, Acute psychosis Disposition: TRANSFER TO PSYCH HOSP/UNIT Condition: Fair Is patient prescribed a controlled substance at d/c from ED?: No Referrals: [facility] Nesha garcia [Primary Care Provider] - 1-2 days
[2020-11-29 03:53] LABS: Amphetamine Screen,Urine Not Detected (NotDetected); Barbiturate Screen,Urine Not Detected (NotDetected); Benzodiazepines Screen,Urine Not Detected (NotDetected); Cocaine Screen,Urine Not Detected (NotDetected); Methadone Screen, Urine Not Detected (NotDetected); Opiate Screen,Urine Not Detected (NotDetected); Oxycodone Screen, Urine Not Detected (NotDetected); Phencyclidine Screen,Urine Not Detected (NotDetected); Tricyclic Antidepressant,Urine Not Detected (NotDetected); Urn Cannabinoid Scrn Detected (NotDetected)
[2020-11-29 04:42] LABS: Basophils # (A) 0.1 k/uL (0-0.2); Basophils % (A) 1 %; Eosinophils % (A) 0 %; HCT 44.5 % (39.0-53.0); HGB 15.4 gm/dL (13.0-17.5); Lymphocytes # (A) 1.8 k/uL (1.0-4.8); Lymphocytes % (A) 20 %; MCH 30.2 pg (25.0-35.0); MCHC 34.6 g/dL (31.0-37.0); MCV 87.2 fL (80.0-100.0); Mean Platelet Volume 6.6; Monocytes # (A) 0.6 k/uL (0-1.0); Monocytes % (A) 7 %; Neutrophils # (A) 6.4 k/uL (1.3-7.7); Neutrophils % (A) 70 %; Platelet Count 235 k/uL (150-450); RDW 12.3 % (11.5-15.5); WBC 9.2 k/uL (3.8-10.6)
[2020-11-29 04:52] LABS: ALT 10 U/L (4-49); AST 18 U/L (17-59); African American GFR (CKD) >90 (>60 ml/min/1.73 sqM); Albumin 4.9 g/dL (3.5-5.0); Alkaline Phosphatase 55 U/L (38-126); Anion Gap 11 mmol/L; Blood Urea Nitrogen 15 mg/dL (9-20); Calcium 9.8 mg/dL (8.4-10.2); Carbon Dioxide 25 mmol/L (22-30); Chloride 102 mmol/L (98-107); Glucose 100 mg/dL (74-99); Non-African American GFR(CKD) >90 (>60 ml/min/1.73 sqM); Sodium 138 mmol/L (137-145); Total Bilirubin 1.6 mg/dL (0.2-1.3); Total Protein 7.7 g/dL (6.3-8.2)
[2020-11-29 09:29] VITALS: BP 123/74; PULSE 77; TEMP 98.1
== END 2020-11-29 10:08 ==
LOC: EC 22:31
DX: F32.9 Major depressive disorder, single episode, unspecified (principal); F25.9 Schizoaffective disorder, unspecified; F29 Unspecified psychosis not due to a substance or known physiological condition; R45.851 Suicidal ideations; F17.200 Nicotine dependence, unspecified, uncomplicated
CPT/HCPCS: 36415; 80053; 80306; 82075; 85025; 87635; 99285

== ENCOUNTER 2021-07-08 19:03 | Emergency (ER) | payer OTHER ==
[2021-07-08 19:06] VITALS: RESP 18; TEMP 98.4
[2021-07-08] MEDS ORDERED: LORazepam 2 MG/ML INJ IV STA (19:26)
[2021-07-08 19:54] LABS: Basophils # (A) 0.1 k/uL (0-0.2); Basophils % (A) 1 %; Eosinophils % (A) 0 %; HCT 46.9 % (39.0-53.0); HGB 16.3 gm/dL (13.0-17.5); Lymphocytes # (A) 0.7 k/uL (1.0-4.8); Lymphocytes % (A) 6 %; MCH 31.2 pg (25.0-35.0); MCHC 34.7 g/dL (31.0-37.0); MCV 89.7 fL (80.0-100.0); Mean Platelet Volume 6.7; Monocytes # (A) 0.3 k/uL (0-1.0); Monocytes % (A) 3 %; Neutrophils # (A) 10.8 k/uL (1.3-7.7); Neutrophils % (A) 90 %; Platelet Count 302 k/uL (150-450); RBC 5.23 m/uL (4.30-5.90); RDW 12.7 % (11.5-15.5)
[2021-07-08 20:05] LABS: ALT 14 U/L (4-49); AST 21 U/L (17-59); Acetaminophen <10.0 ug/mL; African American GFR (CKD) >90 (>60 ml/min/1.73 sqM); Albumin 5.1 g/dL (3.5-5.0); Alcohol <10 mg/dL; Alkaline Phosphatase 62 U/L (38-126); Anion Gap 12 mmol/L; Blood Urea Nitrogen 10 mg/dL (9-20); Calcium 10.1 mg/dL (8.4-10.2); Carbon Dioxide 22 mmol/L (22-30); Chloride 103 mmol/L (98-107); Creatine Kinase 57 U/L (55-170); Glucose 174 mg/dL (74-99); Non-African American GFR(CKD) >90 (>60 ml/min/1.73 sqM); Potassium 4.4 mmol/L (3.5-5.1); Salicylate <1.0 mg/dL; Sodium 137 mmol/L (137-145); Total Bilirubin 1.5 mg/dL (0.2-1.3); Total Protein 7.9 g/dL (6.3-8.2)
[2021-07-08] MEDS ORDERED: SODIUM CHLORIDE 0.9% 2,000 ML IV ONE (20:43)
--- NOTE | 2021-07-08 20:46 | ED ---
General Adult HPI - General Source: patient Mode of arrival: ambulatory Limitations: no limitations <Kerrie Warren - Last Filed: 07/08/21 20:47> <Gustavo Clemons - Last Filed: 07/13/21 06:38> - General Chief complaint: Recheck/Abnormal Lab/Rx Stated complaint: overdose Time Seen by Provider: 07/08/21 19:05 - History of Present Illness Initial comments: Patient is a 20-year-old male with past medical history of schizoaffective disorder, bipolar type who presents to the emergency department after using aci d. Patient is anxious and agitated. States that he used acid in an attempt to get high. Denies any attempt to try and harm himself. Per his step father, he was notified about the ingestion approximately 1 hour prior to arrival. Patient does see [facility] and has a relationship with the ACT team. States they need to be notified prior to his dicharge. The patient denies abusing any other drugs or alcohol. Denies any trauma. States he takes Haldol once weekly and has been compliant with it. The patient cannot provide any further history (Kerrie Warren) - Related Data Home Medications Medication Instructions Recorded Confirmed Haloperidol Decanoate [Haldol D] 200 mg IM Q28D 07/08/21 07/08/21 QUEtiapine FUMARATE [SEROquel] 200 mg PO HS 07/08/21 07/08/21 Allergies Allergy/AdvReac Type Severity Reaction Status Date / Time No Known Allergies Allergy Verified 07/08/21 20:27 Review of Systems ROS Other: All systems not noted in ROS Statement are negative. <Kerrie Warren - Last Filed: 07/08/21 20:47> ROS Other: All systems not noted in ROS Statement are negative. <Gustavo Clemons - Last Filed: 07/13/21 06:38> ROS Statement: Those systems with pertinent positive or pertinent negative responses have been documented in the HPI. Past Medical History Past Medical History: No Reported History History of Any Multi-Drug Resistant Organisms: None Reported Past Surgical History: No Surgical Hx Reported Additional Past Surgical History / Comment(s): dog bite, plastic surgery to nose Past Anesthesia/Blood Transfusion Reactions: No Reported Reaction Past Psychological History: ADD/ADHD, Anxiety, Bipolar, Depression, Schizophrenia Smoking Status: Current every day smoker Past Alcohol Use History: Occasional Past Drug Use History: Marijuana - Past Family History Mother Family Medical History: No Reported History Father Family Medical History: No Reported History <Kerrie Warren Last Filed: 07/08/21 20:47> General Exam Limitations: altered mental status General appearance: alert, anxious, in distress Head exam: Present: atraumatic, normocephalic, normal inspection Eye exam: Present: normal appearance, PERRL, EOMI. Absent: scleral icterus, conjunctival injection, periorbital swelling ENT exam: Present: mucous membranes dry Neck exam: Present: normal inspection. Absent: tenderness, meningismus, lymphadenopathy Respiratory exam: Present: normal lung sounds bilaterally. Absent: respiratory distress, wheezes, rales, rhonchi, stridor Cardiovascular Exam: Present: normal rhythm, tachycardia GI/Abdominal exam: Present: soft, normal bowel sounds. Absent: distended, tenderness, guarding, rebound, rigid Neurological exam: Present: altered Psychiatric exam: Present: agitated, flat affect Skin exam: Present: warm, dry, intact, normal color. Absent: rash <Kerrie Warren Last Filed: 07/08/21 20:47> Course Vital Signs 07/08/21 07/08/21 07/08/21 19:04 19:51 20:56 Temperature 98.4 F Pulse Rate 127 H 112 H Respiratory 18 18 Rate Blood Pressure 153/98 127/102 O2 Sat by Pulse 9 L 97 Oximetry 07/08/21 07/08/21 21:34 23:52 Temperature Pulse Rate 105 H 99 Respiratory 18 18 Rate Blood Pressure 132/69 136/81 O2 Sat by Pulse 97 97 Oximetry EKG Findings - EKG Comments: EKG Findings:: EKG to insert a sinus tachycardia with a ventricular rate of 131. RI interval 138. QRS 94. QTC of 454. Baseline artifact. No acute ST segment elevations or depressions. no signs of Vlavm-Cgcpfuphe-Brawb or Brugada <Kerrie Warren Last Filed: 07/08/21 20:47> Medical Decision Making - Lab Data Result diagrams: 07/08/21 19:42 07/08/21 19:42 <Kerrie Warren Last Filed: 07/08/21 20:47> - Lab Data Result diagrams: 07/08/21 19:42 07/08/21 19:42 <Gustavo Clemons - Last Filed: 07/13/21 06:38> - Medical Decision Making On arrival the patient is placed into room 14. A thorough history and physical exam was performed. Patient is extremely anxious. IV is inserted and 2L bolus is ordered. Patient also given 1 mg of Ativan. EKG is obtained which demonstrates a sinus tachycardia with a rate of 130. Lab studies are ordered. Awaiting a urine from the patient. Will treat patient until medically cleared for EPS evaluation. Patient will be signed out to Dr. Clemons. (Kerrie Warren) 20 male who was seen and evaluated psychiatry here in the emergency department. Patient is currently awake and alert, can be discharged home (Gustavo Clemons) - Lab Data Lab Results 07/08/21 07/08/21 07/08/21 Range/Units 19:42 19:42 20:48 WBC 12.0 H (3.8-10.6) k/uL RBC 5.23 (4.30-5.90) m/uL Hgb 16.3 (13.0-17.5) gm/dL Hct 46.9 (39.0-53.0) % MCV 89.7 (80.0-100.0) fL MCH 31.2 (25.0-35.0) pg MCHC 34.7 (31.0-37.0) g/dL RDW 12.7 (11.5-15.5) % Plt Count 302 (150-450) k/uL MPV 6.7 Neutrophils % 90 % Lymphocytes % 6 % Monocytes % 3 % Eosinophils % 0 % Basophils % 1 % Neutrophils # 10.8 H (1.3-7.7) k/uL Lymphocytes # 0.7 L (1.0-4.8) k/uL Monocytes # 0.3 (0-1.0) k/uL Eosinophils # 0.0 (0-0.7) k/uL Basophils # 0.1 (0-0.2) k/uL Sodium 137 (137-145) mmol/L Potassium 4.4 (3.5-5.1) mmol/L Chloride 103 (98-107) mmol/L Carbon Dioxide 22 (22-30) mmol/L Anion Gap 12 mmol/L BUN 10 (9-20) mg/dL Creatinine 0.70 (0.66-1.25) mg/dL Est GFR (CKD-EPI)AfAm >90 (>60 ml/min/1.73 sqM) Est GFR (CKD-EPI)NonAf >90 (>60 ml/min/1.73 sqM) Glucose 174 H (74-99) mg/dL Calcium 10.1 (8.4-10.2) mg/dL Total Bilirubin 1.5 H (0.2-1.3) mg/dL AST 21 (17-59) U/L ALT 14 (4-49) U/L Alkaline Phosphatase 62 (38-126) U/L Creatine Kinase 57 (55-170) U/L Total Protein 7.9 (6.3-8.2) g/dL Albumin 5.1 H (3.5-5.0) g/dL Salicylates <1.0 mg/dL Urine Opiates Screen Not Detected (NotDetected) Ur Oxycodone Screen Not Detected (NotDetected) Urine Methadone Screen Not Detected (NotDetected) Ur Propoxyphene Screen Not Detected (NotDetected) Acetaminophen <10.0 ug/mL Ur Barbiturates Screen Not Detected (NotDetected) U Tricyclic Antidepress Not Detected (NotDetected) Ur Phencyclidine Scrn Not Detected (NotDetected) Ur Amphetamines Screen Not Detected (NotDetected) U Methamphetamines Scrn Not Detected (NotDetected) U Benzodiazepines Scrn Not Detected (NotDetected) Urine Cocaine Screen Not Detected (NotDetected) U Marijuana (THC) Screen Not Detected (NotDetected) Serum Alcohol <10 mg/dL Disposition <Kerrie Warren A - Last Filed: 07/08/21 20:47> Is patient prescribed a controlled substance at d/c from ED?: No <Gustavo Clemons - Last Filed: 07/13/21 06:38> Clinical Impression: Cannabis use disorder, mild, abuse, Schizoaffective disorder, bipolar type, Acute psychosis, Polysubstance abuse Disposition: HOME SELF-CARE Condition: Fair Instructions (If sedation given, give patient instructions): Brief Psychotic Disorder (ED) Referrals: None,Stated [Primary Care Provider] - 1-2 days
[2021-07-08 21:23] LABS: Amphetamine Screen,Urine Not Detected (NotDetected); Barbiturate Screen,Urine Not Detected (NotDetected); Benzodiazepines Screen,Urine Not Detected (NotDetected); Cocaine Screen,Urine Not Detected (NotDetected); Methadone Screen, Urine Not Detected (NotDetected); Opiate Screen,Urine Not Detected (NotDetected); Oxycodone Screen, Urine Not Detected (NotDetected); Phencyclidine Screen,Urine Not Detected (NotDetected); Tricyclic Antidepressant,Urine Not Detected (NotDetected); Urn Cannabinoid Scrn Not Detected (NotDetected)
[2021-07-09] VITALS: BP 136/81; PULSE 99
== END 2021-07-08 23:52 | disposition home or self-care (01) ==
LOC: EC 19:03
DX: R41.82 Altered mental status, unspecified (principal); R45.1 Restlessness and agitation; F12.10 Cannabis abuse, uncomplicated; F25.0 Schizoaffective disorder, bipolar type; F23 Brief psychotic disorder; F19.10 Other psychoactive substance abuse, uncomplicated; F17.200 Nicotine dependence, unspecified, uncomplicated; F41.9 Anxiety disorder, unspecified; Z79.899 Other long term (current) drug therapy
CPT/HCPCS: 99285; 96374; 96361; 36415; 93005; 80053; 82550; 85025; 80306; 80143; 80179; G0480; J2060; 80320

== ENCOUNTER 2021-09-02 08:26 | Inpatient (IN) | payer MEDICAID, OTHER ==
--- NOTE | 2021-09-02 08:45 | ED ---
Psych HPI - General Chief Complaint: Psychiatric Symptoms Stated Complaint: Mental health Time Seen by Provider: 09/02/21 08:31 Source: patient, family, RN notes reviewed Mode of arrival: ambulatory Limitations: no limitations - History of Present Illness Initial Comments: 20-year-old male presents emergency Department with father for psychiatric evaluation. Patient states that he is not depressed suicidal homicidal. Patient does admit that he is a large amount of marijuana last night does have a history of drug use. Denies any alcohol abuse. Denies any physical complaints. Patient offers no complaints. - Related Data Home Medications Medication Instructions Recorded Confirmed Haloperidol Decanoate [Haldol D] 200 mg IM Q28D 07/08/21 09/02/21 QUEtiapine FUMARATE [SEROquel] 300 mg PO HS 09/02/21 09/02/21 Allergies Allergy/AdvReac Type Severity Reaction Status Date / Time No Known Allergies Allergy Verified 09/02/21 13:21 Review of Systems ROS Statement: Those systems with pertinent positive or pertinent negative responses have been documented in the HPI. ROS Other: All systems not noted in ROS Statement are negative. Past Medical History Past Medical History: No Reported History History of Any Multi-Drug Resistant Organisms: None Reported Past Surgical History: No Surgical Hx Reported Additional Past Surgical History / Comment(s): dog bite, plastic surgery to nose Past Anesthesia/Blood Transfusion Reactions: No Reported Reaction Past Psychological History: ADD/ADHD, Anxiety, Bipolar, Depression, Schizophrenia Smoking Status: Current every day smoker Past Alcohol Use History: Occasional Past Drug Use History: Marijuana - Past Family History Mother Family Medical History: No Reported History Father Family Medical History: No Reported History General Exam Limitations: no limitations General appearance: alert, in no apparent distress Head exam: Present: atraumatic, normocephalic, normal inspection Eye exam: Present: normal appearance, PERRL, EOMI. Absent: scleral icterus, conjunctival injection, periorbital swelling ENT exam: Present: normal exam, normal oropharynx, mucous membranes moist Neck exam: Present: normal inspection. Absent: tenderness, meningismus, lymphadenopathy Respiratory exam: Present: normal lung sounds bilaterally. Absent: respiratory distress, wheezes, rales, rhonchi, stridor Cardiovascular Exam: Present: regular rate, normal rhythm, normal heart sounds. Absent: systolic murmur, diastolic murmur, rubs, gallop, clicks Neurological exam: Present: alert, oriented X3 Psychiatric exam: Present: flat affect Course Vital Signs 09/02/21 08:27 Temperature 97.9 F Pulse Rate 98 Respiratory 18 Rate Blood Pressure 111/64 O2 Sat by Pulse 98 Oximetry Medical Decision Making - Lab Data Lab Results 09/02/21 Range/Units 12:35 Coronavirus (PCR) Not Detected (Not Detectd) Disposition Clinical Impression: Psychosis Disposition: TRANSFER TO PSYCH HOSP/UNIT
[2021-09-02 11:03] LABS: Amphetamine Screen,Urine Not Detected (NotDetected); Barbiturate Screen,Urine Not Detected (NotDetected); Benzodiazepines Screen,Urine Not Detected (NotDetected); Cocaine Screen,Urine Not Detected (NotDetected); Methadone Screen, Urine Not Detected (NotDetected); Opiate Screen,Urine Not Detected (NotDetected); Oxycodone Screen, Urine Not Detected (NotDetected); Phencyclidine Screen,Urine Not Detected (NotDetected); Tricyclic Antidepressant,Urine Not Detected (NotDetected); Urn Cannabinoid Scrn Detected (NotDetected)
[2021-09-02] MEDS ORDERED: MAGNESIUM HYDROXIDE 2,400 MG/10 ML CUP PO PRN (14:24)
[2021-09-02] MEDS ORDERED: MAG HYDROX/AL HYDROX/SIMETH 30 ML CUP PO PRN (14:24)
[2021-09-02] MEDS ORDERED: ACETAMINOPHEN TAB 325 MG TAB PO PRN (14:24)
[2021-09-02] MEDS ORDERED: LORazepam 2 MG/ML INJ IM PRN (14:29)
[2021-09-02] MEDS ORDERED: HALOPERIDOL LACTATE 5 MG/ML 1 ML VIAL IM PRN (14:30)
[2021-09-02] MEDS ORDERED: HALOPERIDOL DECANOATE 100 MG/ML 1 ML VIAL IM SCH (16:00)
[2021-09-02] MEDS: LORazepam 1 MG TAB PO PRN (17:29)
[2021-09-02] MEDS: QUEtiapine 100 MG TAB PO SCH (20:08)
--- NOTE | 2021-09-02 23:39 | P.CONS ---
History of Present Illness - Reason for Consult Consult date: 09/02/21 - History of Present Illness The patient is a 20-year-old male with a PMH of psychiatric illnesses who was brought into the emergency room after being petitioned by his family. The patient was admitted to the mental health unit where he was seen and evaluated. The patient reports that he does not know why he is here. He reports using marijuana daily but denied any additional substances. He denied any physical complaints. Denied chest discomfort, shortness of breath, fever, chills, cough, nausea, vomiting, melena, diarrhea. Denied tobacco use. Denied alcohol use. Review of systems: Pertinent positives and negatives as discussed in HPI, a complete review of systems was performed and all other systems are negative. Physical examination: General: non toxic, no distress, appears at stated age, normal weight Derm: no unusual rashes/lesions no unusual ecchymoses, warm, dry Head: atraumatic, normocephalic, symmetric Eyes: EOMI, no lid lag, anicteric sclera, pupils equal round reactive to light ENT: Nose and ears atraumatic, no thrush, no pharyngeal erythema Neck: No thyromegaly, no cervical lymphadenopathy, trachea midline, supple Mouth: no lip lesion, mucus membranes moist Cardiovascular: S1S2 reg, no murmur, positive posterior tibial pulse bilateral, no edema, capillary refill less than 2 seconds Lungs: CTA bilateral, no rhonchi, no rales , no accessory muscle use Abdominal: soft, nontender to palpation, no guarding, no appreciable organomegaly, normal bowel sounds Ext: no gross muscle atrophy, muscle strength 5 out of 5 in all 4 extremities grossly, no contractures, Neuro: CN II-XI grossly intact, light touch intact all 4 extremities, finger to nose within normal limits, Psych: Alert, oriented, flat affect Assessment/plan Marijuana abuse -Advised on importance of cessation Psychosis -As per psychiatry Thank you for allowing us to participate in the care of this patient. We will follow peripherally. Do not hesitate to contact us with questions. Someone can be reached from the [facility] hospitalist group at all hours of the day at [phone]. Past Medical History Past Medical History: No Reported History History of Any Multi-Drug Resistant Organisms: None Reported Past Surgical History: No Surgical Hx Reported Additional Past Surgical History / Comment(s): dog bite, plastic surgery to nose Past Anesthesia/Blood Transfusion Reactions: No Reported Reaction Past Psychological History: ADD/ADHD, Anxiety, Bipolar, Depression, Schizophrenia Smoking Status: Current every day smoker Past Alcohol Use History: Occasional Past Drug Use History: Marijuana - Past Family History Mother Family Medical History: No Reported History Father Family Medical History: No Reported History Medications and Allergies Home Medications Medication Instructions Recorded Confirmed Type Haloperidol Decanoate [Haldol D] 200 mg IM Q28D 07/08/21 09/02/21 History QUEtiapine FUMARATE [SEROquel] 300 mg PO HS 09/02/21 09/02/21 History Allergies Allergy/AdvReac Type Severity Reaction Status Date / Time No Known Allergies Allergy Verified 09/02/21 13:21 Physical Exam Vitals: Vital Signs Temp Pulse Pulse Resp BP BP Pulse Ox 09/02/21 15:19 98.5 F 87 15 120/66 99 09/02/21 08:27 97.9 F 98 18 111/64 98 Intake and Output 09/02/21 09/02/21 09/03/21 14:59 22:59 05:59 Other: Weight 70.307 kg Results Labs: Abnormal Lab Results - Last 24 Hours (Table) 09/02/21 Range/Units Unknown U Marijuana (THC) Screen Detected H (NotDetected)
[2021-09-03 07:51] LABS: ALT 10 U/L (4-49); AST 21 U/L (17-59); African American GFR (CKD) >90 (>60 ml/min/1.73 sqM); Albumin 4.4 g/dL (3.5-5.0); Alkaline Phosphatase 44 U/L (38-126); Anion Gap 9 mmol/L; Blood Urea Nitrogen 14 mg/dL (9-20); Calcium 9.5 mg/dL (8.4-10.2); Carbon Dioxide 28 mmol/L (22-30); Chloride 102 mmol/L (98-107); Glucose 95 mg/dL (74-99); Non-African American GFR(CKD) >90 (>60 ml/min/1.73 sqM); Potassium 4.5 mmol/L (3.5-5.1); Sodium 139 mmol/L (137-145); Total Bilirubin 1.4 mg/dL (0.2-1.3); Total Protein 6.8 g/dL (6.3-8.2)
[2021-09-03 07:52] LABS: Basophils # (A) 0.1 k/uL (0-0.2); Basophils % (A) 1 %; Eosinophils # (A) 0.1 k/uL (0-0.7); Eosinophils % (A) 2 %; HCT 43.1 % (39.0-53.0); Lymphocytes # (A) 2.3 k/uL (1.0-4.8); Lymphocytes % (A) 43 %; MCH 30.7 pg (25.0-35.0); MCHC 34.9 g/dL (31.0-37.0); Mean Platelet Volume 6.8; Monocytes # (A) 0.3 k/uL (0-1.0); Monocytes % (A) 6 %; Neutrophils # (A) 2.4 k/uL (1.3-7.7); Neutrophils % (A) 45 %; Platelet Count 264 k/uL (150-450); RBC 4.89 m/uL (4.30-5.90); RDW 12.8 % (11.5-15.5); WBC 5.3 k/uL (3.8-10.6)
[2021-09-03] MEDS: NICOTINE 14MG/24HR PATCH TRANSDERM SCH (08:41)
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
[2021-09-03 12:56] LABS: Chol/HDL Ratio 4.28 Ratio; VLDL Calculation 13.26 mg/dL (5.00-40.00)
[2021-09-03] MEDS: LORazepam 1 MG TAB PO PRN ×2 (13:38→19:23)
[2021-09-03] MEDS: QUEtiapine 100 MG TAB PO SCH (20:07)
[2021-09-04 07:10] VITALS: BP 99/52; PULSE 76; RESP 16; TEMP 98
[2021-09-04] MEDS: NICOTINE 14MG/24HR PATCH TRANSDERM SCH (08:35)
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
== END 2021-09-04 14:40 | disposition home or self-care (01) | DRG 885 ==
LOC: EC 08:26 → 3MHU 14:20
PROVIDERS: ADMIT Psychiatry & Neurology Psychiatry; ATTEND Psychiatry & Neurology Psychiatry
DX: F25.0 Schizoaffective disorder, bipolar type (principal); R45.851 Suicidal ideations; F12.10 Cannabis abuse, uncomplicated; F17.210 Nicotine dependence, cigarettes, uncomplicated; F41.9 Anxiety disorder, unspecified; Z20.822 Contact with and (suspected) exposure to COVID-19; F90.9 Attention-deficit hyperactivity disorder, unspecified type; Z79.899 Other long term (current) drug therapy; Z71.51 Drug abuse counseling and surveillance of drug abuser; Z71.6 Tobacco abuse counseling
CPT/HCPCS: 80053; 80061; 80306; 82075; 83036; 84443; 85025; 87635; 99285

== ENCOUNTER 2022-05-07 19:56 | Inpatient (IN) | payer MEDICAID, OTHER ==
[2022-05-08] MEDS ORDERED: ACETAMINOPHEN TAB 325 MG TAB PO PRN (05:01)
[2022-05-08] MEDS ORDERED: HALOPERIDOL LACTATE 5 MG/ML 1 ML VIAL IM PRN (05:01)
[2022-05-08] MEDS ORDERED: MAG HYDROX/AL HYDROX/SIMETH 30 ML CUP PO PRN (05:01)
[2022-05-08] MEDS ORDERED: MAGNESIUM HYDROXIDE 2,400 MG/10 ML CUP PO PRN (05:01)
[2022-05-08] MEDS ORDERED: LORazepam 1 MG/0.5 ML VIAL IM PRN (05:04)
[2022-05-08] MEDS ORDERED: haloperidoL 5 MG TAB PO PRN (05:05)
[2022-05-08 05:45] VITALS: RESP 16
[2022-05-08 06:38] LABS: Appearance,Urine Clear (Clear); Bilirubin,Urine Negative (Negative); Blood,Urine Negative (Negative); Color,Urine Yellow; Glucose,Urine (UA) Negative (Negative); Ketones,Urine Negative (Negative); Leukocyte Esterase,Urine Negative (Negative); Nitrite,Urine Negative (Negative); PH, Urine 6.5 (5.0-8.0); Protein,Urine Negative (Negative); Specific Gravity,Urine 1.021 (1.001-1.035)
[2022-05-08 06:46] LABS: Amphetamine Screen,Urine Not Detected (NotDetected); Barbiturate Screen,Urine Not Detected (NotDetected); Benzodiazepines Screen,Urine Not Detected (NotDetected); Cocaine Screen,Urine Not Detected (NotDetected); Methadone Screen, Urine Not Detected (NotDetected); Opiate Screen,Urine Not Detected (NotDetected); Oxycodone Screen, Urine Not Detected (NotDetected); Phencyclidine Screen,Urine Not Detected (NotDetected); Tricyclic Antidepressant,Urine Not Detected (NotDetected); Urn Cannabinoid Scrn Detected (NotDetected)
[2022-05-08] MEDS: NICOTINE 14MG/24HR PATCH TRANSDERM SCH (08:35)
[2022-05-08] MEDS ORDERED: haloperidoL 5 MG TAB PO STA (10:25)
--- NOTE | 2022-05-08 13:35 | P.HP ---
Psychiatric H&P - . H&P Date: 05/08/22 History & Physical: Allergies Allergy/AdvReac Type Severity Reaction Status Date / Time No Known Allergies Allergy Verified 05/07/22 23:25 Vital Signs Temp 97.6 F 05/08/22 05:34 Pulse 67 05/08/22 05:34 Resp 16 05/08/22 05:34 BP 136/78 05/08/22 05:34 Pulse Ox 98 05/08/22 05:34 FiO2 Intake & Output 05/07/22 05/08/22 05/08/22 18:59 06:59 18:59 Weight 64.098 kg Laboratory Last Values Urine Color Yellow 05/08/22 05:00 Urine Appearance Clear (Clear) 05/08/22 05:00 Urine pH 6.5 (5.0-8.0) 05/08/22 05:00 Ur Specific [place] 1.021 (1.001-1.035) 05/08/22 05:00 Urine Protein Negative (Negative) 05/08/22 05:00 Urine Glucose (UA) Negative (Negative) 05/08/22 05:00 Urine Ketones Negative (Negative) 05/08/22 05:00 Urine Blood Negative (Negative) 05/08/22 05:00 Urine Nitrite Negative (Negative) 05/08/22 05:00 Urine Bilirubin Negative (Negative) 05/08/22 05:00 Urine Urobilinogen 2.0 mg/dL (<2.0) 05/08/22 05:00 Ur Leukocyte Esterase Negative (Negative) 05/08/22 05:00 Urine Opiates Screen Not Detected (NotDetected) 05/08/22 05:00 Ur Oxycodone Screen Not Detected (NotDetected) 05/08/22 05:00 Urine Methadone Screen Not Detected (NotDetected) 05/08/22 05:00 Ur Propoxyphene Screen Not Detected (NotDetected) 05/08/22 05:00 Ur Barbiturates Screen Not Detected (NotDetected) 05/08/22 05:00 U Tricyclic Antidepress Not Detected (NotDetected) 05/08/22 05:00 Ur Phencyclidine Scrn Not Detected (NotDetected) 05/08/22 05:00 Ur Amphetamines Screen Not Detected (NotDetected) 05/08/22 05:00 U Methamphetamines Scrn Not Detected (NotDetected) 05/08/22 05:00 U Benzodiazepines Scrn Not Detected (NotDetected) 05/08/22 05:00 Urine Cocaine Screen Not Detected (NotDetected) 05/08/22 05:00 U Marijuana (THC) Screen Detected (NotDetected) H 05/08/22 05:00 Coronavirus (PCR) Not Detected (Not Detectd) 05/08/22 03:51 05/08/22 13:34 IDENTIFYING DATA: Patient is a single, employed, 21-year-old male with significant history of schizoaffective disorder, bipolar type who presented to the hospital on a pickup order for nonadherence with court ordered mental health treatment. HPI: Patient presented to the hospital on 05/08/2022, brought in on a noncompliance order from [facility] due to "missed medications, missed medication review appointments, and refused to reschedule, refused his Haldol Decanoate on 04/06/2022, refused to engage in treatment." Patient believes that he was done with his mental health court order however was informed that he is on an LEE until 06/28/2022. The patient reports to this provider that he was initially in retirement and he did not want to go back to retirement and wanted to stay in the psychiatric unit instead and began to "lie about everything and tell you guys that I am psychotic when I really wasn't." He also states that he was mainly psychotic due to mushroom use. He maintains that he does not have schizoaffective disorder or any psychotic disorder as he has not been receiving any treatment since February and has not had any signs or symptoms of psychosis. The patient vehemently denies any suicidal or homicidal ideation, intention, and/or plan. He reports no auditory or visual hallucinations. He denies any paranoia or other delusions. He reports a strong desire for discharge so he may get to work. The patient does admit to chronic and heavy marijuana use. He is pre- contemplative quitting marijuana despite its effects on psychotic symptoms. He denies any other drug use. He reports no alcohol use. PAST PSYCHIATRIC HISTORY: Patient states that he does not believe in his diagnosis schizoaffective disorder and states that he has been making everything up. The patient is supposed to be receiving Haldol decanoate monthly however has been nonadherent with any treatment as he believes that the Haldol decanoate was causing him significant tremors and that he does not require this medication. The patient has had multiple inpatient psychiatric admissions with the last time being in August 2021. The patient is open her [facility] however has not been showing up to his appointments. Patient does have a history of prior suicide attempts. PMH: No reported medical history ALLERGIES: NO KNOWN DRUG ALLERGIES CHEMICAL DEPENDENCY HISTORY: Patient admits to daily and heavy marijuana use. FAMILY PSYCHIATRIC/SUBSTANCE USE HISTORY: Unknown SOCIAL HISTORY: Patient is currently homeless and has been living with a friend. He was raised by his mother and stepfather. He dropped out of school in the 10th grade. He is currently employed. He does have a history of incarceration due to charges of assault. MENTAL STATUS EXAM: General Appearance: Patient appears to be stated age is alert, directable, and attempts to cooperate. Patient appears to have good hygiene and grooming. Behavior: Patient is seated without any agitated behavior. Normal psychomotor activity. Fair eye contact. Speech: Patient's speech is fluent and nonpressured. Mood/Affect: Patient reports their mood is "I don't need to be here," affect is congruent and euthymic. Suicidality/Homicidality: Patient denies any suicidal or homicidal ideation, intention, and/or plan. Perceptions: Patient denies any visual hallucinations and denies any auditory hallucinations Though content/process: There is no evidence of any delusional thought content and thought process is linear and goal-directed. Memory and concentration: AOX3, grossly intact for the purposes of this session. Can spell "WORLD" backwards Judgment and insight: poor STRENGTHS/WEAKNESSES: Strength is that the patient appears to be in relatively good physical and mental health. Weakness is that the patient has very poor judgment. INTELLECT: average IMPRESSIONS: Schizoaffective disorder, bipolar type Cannabis use disorder PLAN: -Patient is admitted under involuntary status to [facility] for stabilization of psychiatric symptoms and safety. Patient is currently on an LEE until 06/28/2022. -Medications : Will start patient on Haldol 5 mg by mouth twice a day for schizoaffective disorder with plans to transition him back to Haldol Decanoate prior to discharge. -Ativan and Haldol PRN for agitation/aggression -Patient was counseled on substance abuse but is pre-contemplative. -Patient was informed of the risks, benefits and side effects of the medication and patient verbally consented to taking the medications. Patient signed med consent form and was placed in chart. -Internal Medicine consult to perform medical evaluation and physical. -NRT - nicotine patch -SW on board for discharge planning. Encourage patient to participate in groups to work on coping skills. 05/08/22 13:35 05/08/22 13:35
[2022-05-08] MEDS: LORazepam 1 MG TAB PO PRN (21:02)
[2022-05-08] MEDS: haloperidoL 5 MG TAB PO SCH (21:02)
[2022-05-09] MEDS: haloperidoL 5 MG TAB PO SCH ×2 (09:25→20:11)
[2022-05-09] MEDS: NICOTINE 14MG/24HR PATCH TRANSDERM SCH (09:26)
--- NOTE | 2022-05-09 11:40 | P.PN ---
Progress Note - Text Progress Note Date: 05/09/22 Interval History: Patient was seen resting in bed and was directable and agreeable to speak with this residential mortgage underwriter in his room. Patient reports that he is feeling better. He states that he was able to sleep very well. He is currently denying any suicidal or homicidal ideation, intention, and/or plan. He is not reporting any auditory or visual hallucinations. He is denying any paranoia or other delusions. The patient is agreeable to transitioning to the long-acting injectable Haldol Decanoate. He reports that he did take the Haldol yesterday and is not endorsing any significant side effects at this time. He did not receive Haldol this morning as he was sleeping. He denies any issues regarding his sleep or his appetite. He reports no medical issues or concerns. Mental Status Exam: General Appearance: Patient appears to be stated age is alert, directable, and c ooperative. Behavior: Patient is calmly lying down in bed without any agitated behavior. Speech: Patient's speech is fluent and nonpressured. Mood/Affect: Mood is improving mildly, affect is congruent and constricted. Suicidality/Homicidality: Patient denies having any suicidal or homicidal ideation intent or plan. Perceptions: Patient denies any visual hallucinations and denies any auditory hallucinations Though content/process: There is no evidence of any delusional thought content and thought process is linear and goal-directed. Memory and concentration: AOX3, grossly intact for the purposes of this session Judgment and insight: Improving mildly Vital Signs Temp 98 F 05/09/22 06:34 Pulse 61 05/09/22 06:34 Resp 16 05/09/22 06:34 BP 104/52 05/09/22 06:34 Pulse Ox 98 05/08/22 05:34 FiO2 Assessment Schizoaffective disorder, bipolar type Cannabis use disorder Tobacco use disorder Plan: -Patient continues to meet criteria for inpatient psychiatric admission for symptom stabilization and safety. Patient is currently court ordered for mental health treatment. LEE is up on 06/28/2022. -Medications: We will discontinue oral Haldol and administer Haldol Decanoate 100 mg IM today. -When necessary Ativan and Haldol for agitation/aggression. -NRT - nicotine patch -SW on board for discharge planning. Encouraged the patient to participate in milieu.
[2022-05-09] MEDS: LORazepam 1 MG TAB PO PRN ×2 (12:10→23:22)
[2022-05-09] MEDS ORDERED: HALOPERIDOL DECANOATE 100 MG/ML 1 ML VIAL IM SCH (16:00)
--- NOTE | 2022-05-10 01:41 | P.MDCNMH ---
History of Present Illness H&P Date: 05/09/22 Chief Complaint: Noncompliance 21-year-old male with schizophrenia Patient was brought into the hospital due to noncompliance with H. Patient explains that she doesn't like injections and would not like to take Haldol injections. He is hoping that one day his transition to pill form of Haldol. He denies any suicidal or homicidal ideation denies any hallucinations. He is asking to be released as soon as possible. He denies any medical concerns at this time denies any upper respiratory infection symptoms denies any abdominal pain nausea vomiting diarrhea or any urinary symptoms He admits to smoking marijuana and tobacco but denies any heavy alcohol consumption or other drugs Review of Systems Pertinent positives as noted in HPI. All other systems were reviewed and are negative Past Medical History Past Medical History: No Reported History History of Any Multi-Drug Resistant Organisms: None Reported Past Surgical History: No Surgical Hx Reported Additional Past Surgical History / Comment(s): dog bite, plastic surgery to nose Past Anesthesia/Blood Transfusion Reactions: No Reported Reaction Past Psychological History: ADD/ADHD, Anxiety, Bipolar, Depression, Schizophrenia Smoking Status: Current every day smoker, Vaper Past Alcohol Use History: None Reported Additional Past Alcohol Use History / Comment(s): Pt. states when he drinks it's usually a 12 pk of beer occasionally. Past Drug Use History: Marijuana - Past Family History Mother Family Medical History: No Reported History Father Family Medical History: No Reported History Medications and Allergies Home Medications Medication Instructions Recorded Confirmed Type No Known Home Medications 05/07/22 05/08/22 History Allergies Allergy/AdvReac Type Severity Reaction Status Date / Time No Known Allergies Allergy Verified 05/07/22 23:25 Physical Exam Vitals: Vital Signs Temp Pulse Resp BP 05/09/22 06:34 98 F 61 16 104/52 Constitutional: No acute distress, conversant, pleasant Lungs: Clear to auscultation Clear to percussion Normal respiratory effort, no accessory muscle use Cardiovascular: Heart regular in rate and rhythm, No murmurs, gallops, or rubs No peripheral edema Abdominal: Soft Nontender, no guarding, rebound or rigidity Abdomen moving with respiration Normoactive bowel sounds No hepatomegaly, No splenomegaly No palpable mass No abdominal wall hernia noted Extremities: No digital cyanosis No clubbing Pedal pulses intact and symmetrical Radial pulses intact and symmetrical No calf tenderness Psychiatric: Alert and oriented to person, place and time Neuro Muscles Strength 5/5 in all 4 extremities Sensation to light touch grossly present throughout Cranial nerves II-XII grossly intact No focal sensory deficits Cranial Nerve Examination - Cranial Nerves Cranial Nerve II- Optic: Intact Cranial Nerve III- Oculomotor: Intact Cranial Nerve IV- Trochlear: Intact Cranial Nerve V- Trigeminal: Intact Cranial Nerve - Abducens: Intact Cranial Nerve VII- Facial: Intact Cranial Nerve VIII- Auditory: Intact Cranial Nerve IX- Glossopharyngeal: Intact Cranial Nerve X- Vagus: Intact Cranial Nerve XI- Accessory: Intact Cranial Nerve XII- Hypoglossal: Intact Assessment and Plan Assessment: Schizophrenia noncompliant Management per psych Stable from medical standpoint Thank you for allowing us to participate in the care of this patient. We will follow peripherally. Do not hesitate to contact us with questions. Someone can be reached from the [facility] hospitalist group at all hours of the day at [phone].
[2022-05-10 06:08] VITALS: BP 125/60; PULSE 81; TEMP 98.2
[2022-05-10] MEDS: NICOTINE 14MG/24HR PATCH TRANSDERM SCH (09:58)
[2022-05-10] MEDS: haloperidoL 5 MG TAB PO SCH (09:58)
--- NOTE | 2022-05-10 11:45 | P.DS ---
Providers Date of admission: 05/08/22 04:59 Expected date of discharge: 05/10/22 Attending physician: Kevyn Campa MD Consults: 05/08/22 05:01 Consult Physician Routine Consulting Provider: Awilda Nowak Consult Reason/Comments: For H & P for Medical Follow Up Do you want consulting provider notified?: Yes Primary care physician: Karen Espinal - Discharge Diagnosis(es) (1) Schizoaffective disorder, bipolar type Current Visit: Yes Status: Chronic Priority: High (2) Antisocial personality disorder Current Visit: Yes Status: Chronic Priority: Medium (3) Cannabis use disorder, mild, abuse Current Visit: Yes Status: Chronic Priority: Medium Hospital Course: Admission HPI: Patient is a single, employed, 21-year-old male with significant history of schizoaffective disorder, bipolar type who presented to the hospital on a pickup order for nonadherence with court ordered mental health treatment. Patient presented to the hospital on 05/08/2022, brought in on a noncompliance order from [facility] due to "missed medications, missed medication review appointments, and refused to reschedule, refused his Haldol Decanoate on 04/06/2022, refused to engage in treatment." Patient believes that he was done with his mental health court order however was informed that he is on an LEE until 06/28/2022. The patient reports to this provider that he was initially in half-way and he did not want to go back to half-way and wanted to stay in the psychiatric unit instead and began to "lie about everything and tell you guys that I am psychotic when I really wasn't." He also states that he was mainly psychotic due to mushroom use. He maintains that he does not have schizoaffective disorder or any psychotic disorder as he has not been receiving any treatment since February and has not had any signs or symptoms of psychosis. The patient vehemently denies any suicidal or homicidal ideation, intention, and/or plan. He reports no auditory or visual hallucinations. He denies any paranoia or other delusions. He reports a strong desire for discharge so he may get to work. The patient does admit to chronic and heavy marijuana use. He is pre- contemplative quitting marijuana despite its effects on psychotic symptoms. He denies any other drug use. He reports no alcohol use. Patient states that he does not believe in his diagnosis schizoaffective disorder and states that he has been making everything up. The patient is supposed to be receiving Haldol decanoate monthly however has been nonadherent with any treatment as he believes that the Haldol decanoate was causing him significant tremors and that he does not require this medication. The patient has had multiple inpatient psychiatric admissions with the last time being in August 2021. The patient is open her [facility] however has not been showing up to his appointments. Patient does have a history of prior suicide attempts. Hospital course: Upon admission to the unit patient was initially expressing a desire to not be on any medications as he reported that he fabricated all his psychiatric history in order to avoid half-way time. Despite this, the patient has had numerous psychiatric admissions and episodes of psychosis and therefore he was restarted on Haldol and after much discussion was agreeable to restarting this medication. Patient got along well with other patients on the unit and followed unit protocol. Patient was compliant with the medications and denied any side effects throughout hospital course. Patient was started on 5 mg twice daily of oral Haldol and then transition back to Haldol Decanoate. He received 100 mg IM of Haldol Decanoate on 05/09/2022. Patient spoke of his stressors and engaged in therapy both group and individual. Patient was also seen by medical team for history and physical exam. Over the course of the Hospital physician, the pat ient was calm and cooperative with staff and peers. He displayed no agitated or bizarre behaviors. He reported no side effects of his medication and has been adherent. On the day of discharge, the patient is not reporting any suicidal or homicidal ideation, intention, and/or plan. He is denying any access to firearms or other weapons. He reports no auditory or visualizations. He reports no paranoia or other delusions. The patient was counseled at length on importance of medication adherence and appropriate outpatient follow-up. He was informed that he is currently under court order for mental health treatment and that he is to abide by it a few wishes to eventually get off his court order. The patient does have a significant history of substance abuse however appears to be pre-contemplative in regards to quitting any use of his marijuana. Prior to discharge, a family meeting will be arranged by social group worker to answer any questions and ensure safety. As the patient no longer displayed any criteria for inpatient psychiatric hospitalization, he was subsequently discharged. Mental status exam: General Appearance: Patient appears to be stated age is alert, pleasant, and third cook perative. Patient is in no acute distress and has fair hygiene and grooming Behavior: Patient is calmly seated without any agitated behavior. Speech: Patient's speech is fluent and nonpressured. Mood/Affect: Patient reports their mood is "feeling good", affect is congruent and euthymic to bright. Suicidality/Homicidality: Patient denies having any suicidal or homicidal ideation intent or plan. Perceptions: Patient denies any auditory or visual hallucinations. Though content/process: There is no evidence of any delusional thought content and thought process is linear and goal-directed. Patient is future oriented, thinking about returning back to work. Memory and concentration: AOX3, grossly intact for the purposes of this session. Can spell "WORLD" backwards correctly. Judgment and insight: Improved with guarded prognosis Vital Signs Temp 98.2 F 05/10/22 01:20 Pulse 81 05/10/22 01:20 Resp 16 05/10/22 01:20 BP 125/60 05/10/22 01:20 Pulse Ox 98 05/08/22 05:34 FiO2 Laboratory Results Urine Color Yellow 05/08/22 05:00 Urine Appearance Clear (Clear) 05/08/22 05:00 Urine pH 6.5 (5.0-8.0) 05/08/22 05:00 Ur Specific [place] 1.021 (1.001-1.035) 05/08/22 05:00 Urine Protein Negative (Negative) 05/08/22 05:00 Urine Glucose (UA) Negative (Negative) 05/08/22 05:00 Urine Ketones Negative (Negative) 05/08/22 05:00 Urine Blood Negative (Negative) 05/08/22 05:00 Urine Nitrite Negative (Negative) 05/08/22 05:00 Urine Bilirubin Negative (Negative) 05/08/22 05:00 Urine Urobilinogen 2.0 mg/dL (<2.0) 05/08/22 05:00 Ur Leukocyte Esterase Negative (Negative) 05/08/22 05:00 Urine Opiates Screen Not Detected (NotDetected) 05/08/22 05:00 Ur Oxycodone Screen Not Detected (NotDetected) 05/08/22 05:00 Urine Methadone Screen Not Detected (NotDetected) 05/08/22 05:00 Ur Propoxyphene Screen Not Detected (NotDetected) 05/08/22 05:00 Ur Barbiturates Screen Not Detected (NotDetected) 05/08/22 05:00 U Tricyclic Antidepress Not Detected (NotDetected) 05/08/22 05:00 Ur Phencyclidine Scrn Not Detected (NotDetected) 05/08/22 05:00 Ur Amphetamines Screen Not Detected (NotDetected) 05/08/22 05:00 U Methamphetamines Scrn Not Detected (NotDetected) 05/08/22 05:00 U Benzodiazepines Scrn Not Detected (NotDetected) 05/08/22 05:00 Urine Cocaine Screen Not Detected (NotDetected) 05/08/22 05:00 U Marijuana (THC) Screen Detected (NotDetected) H 05/08/22 05:00 Coronavirus (PCR) Not Detected (Not Detectd) 05/08/22 03:51 Allergies Allergy/AdvReac Type Severity Reaction Status Date / Time No Known Allergies Allergy Verified 05/07/22 23:25 Impression: Schizoaffective disorder, bipolar type Cannabis use disorder Rule out antisocial personality disorder Plan: -Continue with discharge today as patient has improved and stabilized psychiatrically and is not currently an imminent threat to himself and/or others. Patient will remain at chronically elevated risk for harm to self and/or others due to his impulsivity and polysubstance abuse. -Continue medications: Haldol Decanoate 100 mg IM was administered on 05/09/2022. Next dose is due on 06/06/2022. -Patient was counseled on the need for medication compliance and appropriate follow-up at mental health and also primary care for medical issues. Patient verbalized understanding and agreed. -Social work to arrange for and conduct family meeting to ensure safety upon discharge and answer any questions/concerns. Social work also to arrange for patients follow up appointments with [facility] for psychiatric care along with follow up with primary care provider. -Patient counseled on abstaining from recreational drugs and marijuana and alcohol. Was informed/educated on the adverse effects on their physical and mental health. Patient is pre-contemplative regarding quitting substance use. Patient was offered substance abuse treatment however declined at this time. -Patient was instructed to return to the hospital or seek immediate medical care if their psychiatric or medical symptoms do worsen or reoccur. -Psychoeducation and supportive therapy provided to patient. Risks and benefits of pharmacological treatment versus the risks and benefits of nontreatment weight and discussed. Informed consent discussion held. Common side effects of psychotropics discussed such as, but not limited to headache, GI disturbance, sexual dysfunction, movement disorders, sedation, and orthostatic hypotension. Life threatening and blackbox warnings of prescribed medications also discussed. Potential risks of operating a vehicle or heavy machinery discussed with patient at length. Advised on importance of compliance and a reliable and responsible manner. Patient advised to review FDA consumer labeling of all medications prior to taking. Patient verbalized understanding of potential risks, and agrees with current treatment plan. Patient advised to medically contact physician/emergency personnel if any acute changes in condition occur. Patient Condition at Discharge: Stable Plan - Discharge Summary New Discharge Prescriptions: New Haloperidol Decanoate [Haldol D] 100 mg IM Q28D #1 each Discharge Medication List Haloperidol Decanoate [Haldol D] 100 mg IM Q28D #1 each 05/10/22 [Rx] Follow up Appointment(s)/Referral(s): [facility] [Outside] - 05/10/22 1:30 pm (05/15/22 10:30-11:00AM with Dr Nunez) Karen Espinal MD [Primary Care Provider] - 1 Week Patient Instructions/Handouts: How to Stop Smoking (DC), Schizoaffective Disorder (DC) Activity/Diet/Wound Care/Special Instructions: Avoid the use of street drugs and alcohol. Take all prescriptions as prescribed. When you are in need of refills on your medications, please contact your medical provider and/or outpatient psychiatrist to have this done. Please go to scheduled outpatient appointment for aftercare treatment. If symptoms return or become worse, call the crisis line at and/or go to the nearest emergency room for evaluation. Discharge Disposition: HOME SELF-CARE
== END 2022-05-10 13:14 | disposition home or self-care (01) | DRG 885 ==
LOC: EC 19:56 → 3MHU 05-08 04:59
PROVIDERS: ADMIT Psychiatry & Neurology Psychiatry; ATTEND Psychiatry & Neurology Psychiatry
DX: F25.0 Schizoaffective disorder, bipolar type (principal); R45.851 Suicidal ideations; F31.9 Bipolar disorder, unspecified; Z20.822 Contact with and (suspected) exposure to COVID-19; Z71.41 Alcohol abuse counseling and surveillance of alcoholic; F90.9 Attention-deficit hyperactivity disorder, unspecified type; Z71.51 Drug abuse counseling and surveillance of drug abuser; F12.10 Cannabis abuse, uncomplicated; F17.210 Nicotine dependence, cigarettes, uncomplicated; F60.2 Antisocial personality disorder; Z59.00 Homelessness unspecified; Z91.19 Patient's noncompliance with other medical treatment and regimen; Z91.51 Personal history of suicidal behavior
CPT/HCPCS: 80306; 81003; 82075; 87635; 99285